=== PATIENT | female | born 1940 | race African-American/Black ===

== ENCOUNTER → 2016-06-21 | Outpatient (CLI) | payer MEDICARE, BC | LOC: WI 11:46 | PROVIDERS: ATTEND Family Medicine | DX: Z12.31 Encounter for screening mammogram for malignant neoplasm of breast (principal) | CPT/HCPCS: 77067; G0202 ==

== ENCOUNTER → 2016-08-16 | Outpatient (CLI) | payer MEDICARE, BC ==
[2016-08-16 12:47] LABS: HEMOGLOBIN 11.4 g/dL (12.0-15.5); HGB HCT DIFFERENCE -0.8; MEAN CORPUSCULAR HEMOGLOBIN 26.3 pg (27.0-33.4); MEAN CORPUSCULAR HGB CONC 32.6 g/dL (32.0-36.0); MEAN CORPUSCULAR VOLUME 81 fl (80-97); RED BLOOD COUNT 4.34 10^6/uL (3.72-5.28); RED CELL DISTRIBUTION WIDTH 15.9 % (11.5-14.0); WHITE BLOOD COUNT 4.1 10^3/uL (4.0-10.5)
[2016-08-16 13:04] LABS: ALANINE AMINOTRANSFERASE 16 U/L (9-52); ALKALINE PHOSPHATASE 61 U/L (38-126); ASPARTATE AMINO TRANSFERASE 28 U/L (14-36); BILIRUBIN,DIRECT 0.5 mg/dL (0.0-0.4); BILIRUBIN,TOTAL 0.9 mg/dL (0.2-1.3); TOTAL PROTEIN 7.3 g/dL (6.3-8.2)
[2016-08-19 11:42] LABS: HEPATITIS BE AB Positive (Negative)
== END ==
LOC: LAB 11:52
PROVIDERS: ATTEND Internal Medicine Gastroenterology
DX: G93.41 Metabolic encephalopathy (principal); B18.1 Chronic viral hepatitis B without delta-agent; K74.69 Other cirrhosis of liver
CPT/HCPCS: 36415; 80076; 82105; 85027; 86707; 87350

== ENCOUNTER → 2016-09-19 | Outpatient (CLI) | payer MEDICARE, BC ==
[2016-09-21 11:50] LABS: HEPATITIS B AS IU/ML 2 <10 IU/mL (.)
== END ==
LOC: LAB 14:35
PROVIDERS: ATTEND Internal Medicine Gastroenterology
DX: B18.1 Chronic viral hepatitis B without delta-agent (principal)
CPT/HCPCS: 36415; 87340; 87517

== ENCOUNTER → 2016-11-01 | Outpatient (CLI) | payer MEDICARE, BC ==
--- NOTE | 2016-11-01 12:34 | RADIOLOGY REPORT (SQ) ---
EXAM DESCRIPTION: U/S ABDOMEN LIMITED W/O DOP COMPLETED DATE/TIME: 11/01/2016 10:26 am REASON FOR STUDY: OTHER CIRRHOSIS OF LIVER K74.69 OTHER CIRRHOSIS OF LIVER B18.1 CHRONIC VIRAL HEP ATITIS B WITHOUT DELTA-AGENT COMPARISON: 08/04/2015. TECHNIQUE: Dynamic and static grayscale images acquired of the abdomen and recorded on PACS. Additio nal selected color Doppler and spectral images recorded. LIMITATIONS: None. FINDINGS: PANCREAS: No masses. Visualized pancreatic duct normal caliber. LIVER: No masses. Heterogenous echogenicity. LIVER VASCULATURE: Normal directional flow of the main portal vein and hepatic veins. GALLBLADDER: Contracted. No stones. Normal wall thickness. No pericholecystic fluid. ULTRASOUND-DETECTED MORGAN'S SIGN: Negative. INTRAHEPATIC DUCTS AND COMMON DUCT: CBD and intrahepatic ducts normal caliber. No filling defects. INFERIOR VENA CAVA: Normal flow. AORTA: No aneurysm. RIGHT KIDNEY: Normal size. Normal echogenicity. No solid or suspicious masses. No hydronephrosis. No calcifications. PERITONEAL AND RIGHT PLEURAL SPACE: No ascites or effusions. OTHER: No other significant findings. IMPRESSION: HETEROGENOUS ECHOGENICITY OF THE LIVER, SIMILAR TO THE PRIOR STUDY, CONSISTENT WITH THE GIVEN HISTORY OF CIRRHOSIS. NO FOCAL LESIONS. TECHNICAL DOCUMENTATION: JOB ID: [id number] [employer]- All Rights Reserved
== END ==
LOC: RAD 09:44
PROVIDERS: ATTEND Internal Medicine Gastroenterology
DX: K74.69 Other cirrhosis of liver (principal); B18.1 Chronic viral hepatitis B without delta-agent
CPT/HCPCS: 76705

== ENCOUNTER → 2017-01-24 | Outpatient (CLI) | payer MEDICARE, BC ==
--- NOTE | 2017-01-24 13:00 | RADIOLOGY REPORT (SQ) ---
EXAM DESCRIPTION: CT ABD/PELVIS NO ORAL OR IV COMPLETED DATE/TIME: 01/24/2017 10:13 am REASON FOR STUDY: LOWER ABDOMINAL PAIN R10.30 LOWER ABDOMINAL PAIN, UNSPECIFIED COMPARISON: CT abdomen pelvis 05/02/2012, 10/22/2015, 01/21/2016 TECHNIQUE: CT scan of the abdomen and pelvis performed without intravenous or oral contrast. Images reviewed with lung, soft tissue, and bone windows. Reconstructed coronal and sagittal MPR images revi ewed. All images stored on PACS. All CT scanners at this facility use dose modulation, iterative reconstruction, and/or weight based d osing when appropriate to reduce radiation dose to as low as reasonably achievable (ALARA). [facility]: Dose Right [facility]: CareDose [facility]: Dose Right [facility]: Teradose 4D [facility]: Smart Carbon Digital RADIATION DOSE: Up-to-date CT equipment and radiation dose reduction techniques were employed. CTDIv ol: 2.3 mGy. DLP: 109 mGy-cm.mGy. LIMITATIONS: Slender patient. No IV or oral contrast FINDINGS: LOWER CHEST: Lung bases are free of focal infiltrates. NON-CONTRASTED LIVER, SPLEEN, ADRENALS: Evaluation limited by lack of IV contrast. No identified sign ificant masses. PANCREAS: No masses. No peripancreatic inflammatory changes. GALLBLADDER: No identified stones by CT criteria. No inflammatory changes to suggest cholecystitis. RIGHT KIDNEY AND URETER: No suspicious masses. Assessment limited by lack of IV contrast. Multiple small less than 5 mm right lower pole intrarenal nonobstructive stones No hydronephrosis or hydrour eter. LEFT KIDNEY AND URETER: No suspicious masses. Assessment limited by lack of IV contrast. Multiple s mall less than 5 mm left lower pole intrarenal nonobstructive stones No hydronephrosis or hydrouret er. AORTA AND RETROPERITONEUM: No aneurysm. No retroperitoneal masses or adenopathy. BOWEL AND PERITONEAL CAVITY: No obvious masses or inflammatory changes. No free fluid. Large amount of stool throughout the colon APPENDIX: Normal. Best shown on axial images 55-60, and coronal images 29-37 PELVIS, BLADDER, AND ABDOMINAL WALL:No abnormal masses. No free fluid. Bladder normal. Normal size f emale pelvic. Multiple calcified pelvic phleboliths BONES: Degenerative disc changes at L4-5. OTHER: No other significant finding. IMPRESSION: NO SIGNIFICANT OR ACUTE PROCESS IN THE ABDOMEN OR PELVIS. COMMENT: Quality ID # [id number]: Final reports with documentation of one or more dose reduction techniques (e.g., Automated exposure control, adjustment of the mA and/or kV according to patient size, use of iterative reconstruction technique) TECHNICAL DOCUMENTATION: JOB ID: [id number] [employer]- All Rights Reserved
== END ==
LOC: RAD 09:53
PROVIDERS: ATTEND Family Medicine
DX: R10.30 Lower abdominal pain, unspecified (principal)
CPT/HCPCS: 74176

== ENCOUNTER → 2017-01-27 | Outpatient (CLI) | payer MEDICARE, BC ==
[2017-01-27 13:48] LABS: ABSOLUTE BASOPHILS # (AUTO) 0.1 10^3/uL (0.0-0.2); ABSOLUTE EOSINOPHILS # (AUTO) 0.1 10^3/uL (0.0-0.6); ABSOLUTE LYMPHOCYTES (AUTO) 1.7 10^3/uL (0.5-4.7); ABSOLUTE MONOCYTES (AUTO) 0.4 10^3/uL (0.1-1.4); BASOPHILS % (AUTO) 1.3 % (0-2); EOSINOPHILS % (AUTO) 1.5 % (0-6); HEMATOCRIT 33.1 % (36.0-47.0); HEMOGLOBIN 11.1 g/dL (12.0-15.5); HGB HCT DIFFERENCE 0.2; LYMPHOCYTES % (AUTO) 40.9 % (13-45); MEAN CORPUSCULAR HGB CONC 33.5 g/dL (32.0-36.0); MEAN CORPUSCULAR VOLUME 78 fl (80-97); MONOCYTES % (AUTO) 9.7 % (3-13); RED BLOOD COUNT 4.26 10^6/uL (3.72-5.28); SEGMENTED NEUTROPHILS % (AUTO) 46.6 % (42-78); WHITE BLOOD COUNT 4.2 10^3/uL (4.0-10.5)
[2017-01-27 14:08] LABS: ALANINE AMINOTRANSFERASE 26 U/L (9-52); ALBUMIN 4.1 g/dL (3.5-5.0); ALKALINE PHOSPHATASE 64 U/L (38-126); ANION GAP 16 (5-19); ASPARTATE AMINO TRANSFERASE 49 U/L (14-36); BILIRUBIN,DIRECT 0.3 mg/dL (0.0-0.4); BILIRUBIN,TOTAL 0.6 mg/dL (0.2-1.3); BLOOD UREA NITROGEN 20 mg/dL (7-20); CARBON DIOXIDE 15 mmol/L (22-30); CHLORIDE 115 mmol/L (98-107); CREATININE RESULT 1.12 mg/dL (0.52-1.25); GLUCOSE 101 mg/dL (75-110); POTASSIUM 4.6 mmol/L (3.6-5.0); SODIUM 145.8 mmol/L (137-145); TOTAL PROTEIN 6.8 g/dL (6.3-8.2)
== END ==
LOC: OD 11:38
PROVIDERS: ATTEND Family Medicine
DX: G93.40 Encephalopathy, unspecified (principal)
CPT/HCPCS: 36415; 80053; 85025

== ENCOUNTER → 2017-05-31 | Outpatient (CLI) | payer MEDICARE, BC ==
[2017-05-31 12:44] LABS: HEMATOCRIT 37.9 % (36.0-47.0); HEMOGLOBIN 12.6 g/dL (12.0-15.5); MEAN CORPUSCULAR HEMOGLOBIN 25.8 pg (27.0-33.4); MEAN CORPUSCULAR HGB CONC 33.3 g/dL (32.0-36.0); MEAN CORPUSCULAR VOLUME 78 fl (80-97); PROTHROMBIN TIME 13.9 SEC (11.4-15.4); RED BLOOD COUNT 4.88 10^6/uL (3.72-5.28); RED CELL DISTRIBUTION WIDTH 17.6 % (11.5-14.0); WHITE BLOOD COUNT 3.9 10^3/uL (4.0-10.5)
[2017-05-31 13:03] LABS: ANION GAP 9 (5-19); BLOOD UREA NITROGEN 15 mg/dL (7-20); CARBON DIOXIDE 23 mmol/L (22-30); CHLORIDE 114 mmol/L (98-107); GLUCOSE 107 mg/dL (75-110); POTASSIUM 4.2 mmol/L (3.6-5.0); SODIUM 145.9 mmol/L (137-145)
[2017-05-31 13:16] LABS: PLATELET COUNT 82 10^3/uL (150-450)
== END ==
LOC: LAB 12:04
PROVIDERS: ATTEND Internal Medicine Gastroenterology
DX: K74.69 Other cirrhosis of liver (principal); B18.1 Chronic viral hepatitis B without delta-agent
CPT/HCPCS: 36415; 80048; 85027; 85610; 87517

== ENCOUNTER → 2017-06-26 | Outpatient (CLI) | payer MEDICARE, BC ==
--- NOTE | 2017-06-27 08:59 | WOMENS IMAGING REPORT ---
EXAM DESCRIPTION: 3D SCREENING MAMMO BILAT COMPLETED DATE/TIME: 06/26/2017 10:40 am REASON FOR STUDY: ROUTINE SCREENING;Z12.31 Z12.31 ENCNTR SCREEN MAMMOGRAM FOR MALIGNANT NEOPLASM OF [place] COMPARISON: Multiple since 2009 TECHNIQUE: Standard craniocaudal and mediolateral oblique views of each breast recorded using digita l acquisition and breast tomosynthesis. LIMITATIONS: None. FINDINGS: Findings present which are benign by mammographic criteria. No suspicious masses, calcifi cations or architectural distortion. Pertinent benign findings: Stable bilateral breast parenchymal calcifications and arterial vascular c alcifications Read with the assistance of CAD. .[facility] - R2 Cenova Version 1.3 .[facility] Imaging - R2 Cenova Version 1.3 .[facility] - R2 Cenova Version 2.4 .[facility] - R2 Cenova Version 2.4 .[facility] - R2 Transformation Lead Version 9.2 Benign mammographic findings may include one or more of the following: Smooth masses, popcorn/rim/co arse calcifications, asymmetries, post-procedure changes, and lesions with long-standing stability. IMPRESSION: BENIGN MAMMOGRAPHIC FINDINGS. BIRADS 2 BREAST DENSITY: c. The breasts are heterogeneously dense, which may obscure small masses. BIRAD: 2 BENIGN FINDING(S) RECOMMENDATION: RECOMMENDATION: ROUTINE SCREENING Please continue yearly bilateral screening tomosynthesis in June 2018 COMMENT: The patient has been notified of the results by letter per [place] requirements. Additional no tification policies are in place for contacting patient with suspicious or incomplete findings. Quality ID #225: The [employer] recommends an annual screening mammogram for women aged 40 years or over. This facility utilizes a reminder system to ensure that all patients receive reminder letters, and/or direct phone calls for appointments. This includes reminders for routine scr eening mammograms, diagnostic mammograms, or other Breast Imaging Interventions when appropriate. Th is patient will be placed in the appropriate reminder system. The [employer] (ACR) has developed recommendations for screening MRI of the breast s in certain patient populations, to be used in conjunction with mammography. Breast MRI surveillanc e may be appropriate for women with more than 20% lifetime risk of developing breast cancer as deter mined by genetic testing, significant family history of the disease, or history of mantle radiation f or Hodgkins Disease. ACR Practice Guidelines 2008. DBT Technology DBT is a type of tomographic mammography. With conventional mammography, overlapping breast tissue ma y make lesions difficult to detect, even with good compression. DBT uses an x-ray tube that rotates a round the breast, taking images at different angles. These images are then combined to create thin sl ices of the breast that the radiologist can view as a 3D reconstruction. The Hologic unit can perform full-field digital mammograms (2D imaging); or DBT (3D imaging); or both, in a combination mode that quickly performs both the mammogram and the tomosynthesis scan while the breast is still compressed. PQRS 6045F: Fluoroscopic imaging is not utilized for breast tomosynthesis. TECHNICAL DOCUMENTATION: FINDING NUMBER: (1) ASSESSMENT: (1) JOB ID: [id number] [employer]- All Rights Reserved Reading location - IP/workstation name: [email or web address]
== END ==
LOC: WI 10:25
PROVIDERS: ATTEND Family Medicine
DX: Z12.31 Encounter for screening mammogram for malignant neoplasm of breast (principal)
CPT/HCPCS: 77063; 77067

== ENCOUNTER → 2017-11-10 | Outpatient (CLI) | payer MEDICARE, BC ==
--- NOTE | 2017-11-10 09:49 | WOMENS IMAGING REPORT ---
EXAM DESCRIPTION: U/S ABDOMEN LIMITED COMPLETED DATE/TIME: 11/10/2017 9:25 am REASON FOR STUDY: ABDOMEN LIMITED LIVER/K74.69 K74.69 OTHER CIRRHOSIS OF LIVER COMPARISON: CT abdomen pelvis 01/24/2017, 01/21/2016 Abdominal ultrasound 11/01/2016, 08/04/2015, 01/04/2013 TECHNIQUE: Dynamic and static grayscale images acquired of the abdomen and recorded on PACS. Additio nal selected color Doppler and spectral images recorded. LIMITATIONS: Midline bowel gas FINDINGS: PANCREAS: Limited view of the midline pancreas unremarkable LIVER: No masses. Echotexture normal. LIVER VASCULATURE: Normal directional flow of the main portal vein and hepatic veins. GALLBLADDER: No stones. Minimal nonshadowing echogenic debris or sludge. Normal wall thickness. No pericholecystic fluid. ULTRASOUND-DETECTED MORGAN'S SIGN: Negative. INTRAHEPATIC DUCTS AND COMMON DUCT: No intrahepatic biliary ductal dilatation. On today's exam, the common bile duct at the toya hepatis is 9 mm in diameter (was 7 mm in diameter 2012). Distal common duct not well seen due to duodenum gas. INFERIOR VENA CAVA: Normal flow. AORTA: No aneurysm. RIGHT KIDNEY: Normal size. Normal echogenicity. No solid or suspicious masses. No hydronephrosis. P unctate shadowing focus right lower pole kidney could represent a tiny intrarenal nonobstructive ston e. PERITONEAL AND RIGHT PLEURAL SPACE: No ascites or effusions. OTHER: No other significant findings. IMPRESSION: Minimal sludge in the gallbladder. No ultrasound evidence of gallbladder wall thickenin g or pericholecystic fluid Common bile duct at the toya hepatis 9 mm in diameter, distal most common duct not well seen due to duodenum gas. TECHNICAL DOCUMENTATION: JOB ID: [id number] [employer]- All Rights Reserved Reading location - IP/workstation name: [email or web address]
== END ==
LOC: WI 09:00
PROVIDERS: ATTEND Internal Medicine Gastroenterology
DX: K74.69 Other cirrhosis of liver (principal)
CPT/HCPCS: 76705

== ENCOUNTER → 2017-11-10 | Outpatient (CLI) | payer MEDICARE, BC ==
[2017-11-10 11:23] LABS: INTERNATIONAL RATION (INR) 1.03
[2017-11-10 11:33] LABS: APPEARANCE,URINE SLIGHTLY-CLOUDY; BILIRUBIN,URINE NEGATIVE (NEGATIVE); CALCIUM OXALATE CRYSTALS,URINE MODERATE /HPF; COLOR,URINE YELLOW; GLUCOSE, URINE NEGATIVE (NEGATIVE); KETONES,URINE TRACE mg/dL (NEGATIVE); LEUKOCYTE ESTERASE,URINE TRACE (NEGATIVE); NITRITE,URINE NEGATIVE (NEGATIVE); PROTEIN,URINE 100 mg/dL (NEGATIVE); URINE SPECIFIC GRAVITY 1.017; UROBILINOGEN,URINE NEGATIVE mg/dL (<2.0)
[2017-11-10 11:41] LABS: ALANINE AMINOTRANSFERASE 31 U/L (9-52); ALKALINE PHOSPHATASE 85 U/L (38-126); ANION GAP 12 (5-19); ASPARTATE AMINO TRANSFERASE 47 U/L (14-36); BILIRUBIN,DIRECT 0.4 mg/dL (0.0-0.4); BILIRUBIN,TOTAL 1.1 mg/dL (0.2-1.3); BLOOD UREA NITROGEN 18 mg/dL (7-20); CALCIUM 9.9 mg/dL (8.4-10.2); CARBON DIOXIDE 21 mmol/L (22-30); CHLORIDE 114 mmol/L (98-107); GLUCOSE 94 mg/dL (75-110); POTASSIUM 3.9 mmol/L (3.6-5.0); SODIUM 147.1 mmol/L (137-145); TOTAL PROTEIN 7.5 g/dL (6.3-8.2)
[2017-11-12 06:15] LABS: AFP SERUM TUMOR MARKER 4.8 ng/mL (0.0-8.3)
== END ==
LOC: OD 09:43
PROVIDERS: ATTEND Internal Medicine Gastroenterology
DX: B18.1 Chronic viral hepatitis B without delta-agent (principal); K74.69 Other cirrhosis of liver; N39.0 Urinary tract infection, site not specified
CPT/HCPCS: 36415; 80048; 80076; 81001; 82105; 85610; 87517

== ENCOUNTER 2017-11-12 18:07 | Emergency (ER) | payer MEDICARE, BC ==
[2017-11-12] MEDS ORDERED: KETOROLAC TROMETHAMINE INJ/PF 30 MG/1 ML SDV IV ONE (19:08)
[2017-11-12] MEDS ORDERED: DIPHENHYDRAMINE HCL 50 MG/ML VIAL IV ONE (19:08)
[2017-11-12] MEDS ORDERED: PROCHLORPERAZINE EDISYLATE INJ 10 MG/2 ML VIAL IM ONE (19:08)
--- NOTE | 2017-11-12 19:19 | ER Document Report ---
ED Medical Screen (RME) - General Mode of Arrival: Ambulatory Information source: Patient TRAVEL OUTSIDE OF THE [place] IN LAST 30 DAYS: No <JED MIRANDA - Last Filed: 11/12/17 19:48> <REGGIEMARITAERIC REDDY - Last Filed: 11/12/17 20:13> - General Chief Complaint: Blood Pressure Problem Stated Complaint: ELEVATED BLOOD PRESSURE Time Seen by Provider: 11/12/17 18:56 Notes: Patient is a 76 year old female presenting to the emergency department complaining of multiple symptoms including a headache, elevated blood pressure and shakiness onset 3-4 days ago. Patient states she believes she has a headache because her blood pressure is high. She states her headache is located around her temples further stating she has had numerous headaches in the past but today's headache is more severe. She reports taking Excedrin migraine in attempt to relieve the pain. She also mentions having a recent eeg and ultrasound performed recently for work up for Parkinson's Disease. She states she has been tapping her foot for a few days. Patient denies any numbness or tingling or difficulty swallowing. GENERAL: Alert, interacts well. No acute distress. HEAD: Normocephalic, atraumatic. EYES: Pupils equal, round, and reactive to light. Extraocular movements intact. ENT: Oral mucosa moist, tongue midline. NECK: Full range of motion. Supple. Trachea midline. LUNGS: Clear to auscultation bilaterally, no wheezes, rales, or rhonchi. No respiratory distress. HEART: 2/6 systolic murmur. Regular rate and rhythm. ABDOMEN: Soft, non-tender. Non-distended. Bowel sounds present in all 4 quadrants. EXTREMITIES: Moves all 4 extremities spontaneously. No edema, radial and dorsalis pedis pulses 2/4 bilaterally. No cyanosis. 5/5 motor strength BLE. 5/5 great toe dorsiflexion. NEUROLOGICAL: Alert and oriented x3. Normal speech. Cranial nerves II through XII grossly intact. Biceps and patellar DTRs 2+ bilaterally. PSYCH: Normal affect, normal mood. SKIN: Warm, dry, normal turgor. No rashes or lesions noted. I have greeted and performed a rapid initial assessment of this patient. A comprehensive ED assessment and evaluation of the patient, analysis of test results and completion of the medical decision making process will be conducted by additional ED providers. (JED MIRANDA) - Related Data Allergies/Adverse Reactions: divalproex sodium [From Depakote] Adverse Reaction (Intermediate, Verified 10/21 11:14) BEE STING Adverse Reaction (Severe, Uncoded 10/22/15 11:14) Past Medical History - Social History Chew tobacco use (# tins/day): No Frequency of alcohol use: None Drug Abuse: None Family history: CAD, Hypertension - Past Medical History Cardiac Medical History: Reports: Hx Hypercholesterolemia, Hx Hypertension Denies: Hx Coronary Artery Disease, Hx Heart Attack Pulmonary Medical History: Denies: Hx Asthma, Hx Bronchitis, Hx COPD, Hx Pneumonia, Hx Tuberculosis Neurological Medical History: Reports: Hx Migraine. Denies: Hx Cerebrovascular Accident, Hx Seizures Renal/ Medical History: Denies: Hx Peritoneal Dialysis GI Medical History: Reports: Hx Cirrhosis, Hx Gastroesophageal Reflux Disease, Hx Hepatitis, Hx Liver Failure - Hepatic Encephalopathy Musculoskeltal Medical History: Reports Hx Arthritis Psychiatric Medical History: Reports: Hx Dementia Infectious Medical History: Reports: Hx Hepatitis Past Surgical History: Reports: Hx Section, Hx Tubal Ligation. Denies : Hx Hysterectomy, Hx Pacemaker - Immunizations Immunizations up to date: Yes Hx Diphtheria, Pertussis, Tetanus Vaccination: Yes <JED MIRANDA - Last Filed: 11/12/17 19:48> - Vital signs Vitals: Temp Pulse Resp BP Pulse Ox 98.6 F 94 16 175/75 H 98 11/12/17 18:16 11/12/17 18:16 11/12/17 18:16 11/12/17 18:16 11/12/17 18:16 Course - Laboratory Result Diagrams: 11/12/17 19:25 11/12/17 19:25 <JED MIRANDA - Last Filed: 11/12/17 19:48> - Laboratory Result Diagrams: 11/12/17 19:25 11/12/17 19:25 <ERIC VALENZUELA - Last Filed: 11/12/17 20:13> - Vital Signs Vital signs: Temp Pulse Resp BP Pulse Ox 98.6 F 94 16 175/75 H 98 11/12/17 18:16 11/12/17 18:16 11/12/17 18:16 11/12/17 18:16 11/12/17 18:16 Doctor's Discharge <JED MIRANDA - Last Filed: 11/12/17 19:48> <ERIC VALENZUELA - Last Filed: 11/12/17 20:13> - Discharge Referrals: MCKAYLA AGUAYO MD [Primary Care Provider] - Follow up as needed
[2017-11-12 19:44] LABS: MEAN CORPUSCULAR HGB CONC 33.6 g/dL (32.0-36.0); MEAN CORPUSCULAR VOLUME 82 fl (80-97)
--- NOTE | 2017-11-12 19:45 | RADIOLOGY REPORT (SQ) ---
EXAM DESCRIPTION: CT HEAD WITHOUT COMPLETED DATE/TIME: 11/12/2017 7:35 pm REASON FOR STUDY: frontal headache, hypertensive COMPARISON: 01/21/2016 TECHNIQUE: Axial images acquired through the brain without intravenous contrast. Images reviewed wi th bone, brain and subdural windows. Images stored on PACS. All CT scanners at this facility use dose modulation, iterative reconstruction, and/or weight based d osing when appropriate to reduce radiation dose to as low as reasonably achievable (ALARA). [facility]: Dose Right [facility]: CareDose [facility]: Dose Right [facility]: Teradose 4D [facility]: Smart Technologies RADIATION DOSE: CT Rad equipment meets quality standard of care and radiation dose reduction techniq ues were employed. CTDIvol: 53.2 mGy. DLP: 1097 mGy-cm. mGy. LIMITATIONS: None. FINDINGS: VENTRICLES: Stable. CEREBRUM: No masses. No hemorrhage. No midline shift. Areas of low density in the white matter mos t likely due to chronic micro-vascular ischemic change. No evidence for acute infarction. CEREBELLUM: No masses. No hemorrhage. No alteration of density. No evidence for acute infarction. EXTRAAXIAL SPACES: Mild age-related involutional change. No fluid collections. No masses. ORBITS AND GLOBE: No intra- or extraconal masses. Normal contour of globe without masses. CALVARIUM: No fracture. PARANASAL SINUSES: No fluid or mucosal thickening. SOFT TISSUES: No mass or hematoma. OTHER: No other significant finding. IMPRESSION: No acute intracranial findings. EVIDENCE OF ACUTE STROKE: NO. TECHNICAL DOCUMENTATION: JOB ID: [id number] Quality ID # [id number]: Final reports with documentation of one or more dose reduction techniques (e.g., Au tomated exposure control, adjustment of the mA and/or kV according to patient size, use of iterative reconstruction technique) 2010 [employer]- All Rights Reserved Reading location - IP/workstation name: [employer]
[2017-11-12 20:14] LABS: HEMATOCRIT 37.8 % (36.0-47.0); HEMOGLOBIN 12.7 g/dL (12.0-15.5); MEAN CORPUSCULAR HEMOGLOBIN 27.5 pg (27.0-33.4); PLATELET COUNT 136 10^3/uL (150-450); RED BLOOD COUNT 4.61 10^6/uL (3.72-5.28); RED CELL DISTRIBUTION WIDTH 15.4 % (11.5-14.0); WHITE BLOOD COUNT 4.3 10^3/uL (4.0-10.5)
[2017-11-12 20:16] LABS: ABSOLUTE LYMPHOCYTES# (MANUAL) 1.7 10^3/uL (0.5-4.7); ABSOLUTE MONOCYTES # (MANUAL) 0.3 10^3/uL (0.1-1.4); ABSOLUTE NEUTROPHILS# (MANUAL) 2.1 10^3/uL (1.7-8.2); BASOPHILS % (MANUAL) 2 % (0-2); EOSINOPHILS % (MANUAL) 2 % (0-6); LYMPHOCYTES % (MANUAL) 39 % (13-45); MONOCYTES % (MANUAL) 8 % (3-13); PLATELET CLUMPS PRESENT; PLATELET COMMENT DECREASED; PLATELET LARGE PRESENT; RBC MORPHOLOGY COMMENT NORMO-CYTIC/CHROMIC; SEGMENTED NEUTROPHILS % (MAN) 49 % (42-78); TOTAL CELLS COUNTED 100
[2017-11-12] MEDS ORDERED: NORMAL SALINE 500 ML IV ONE (20:26)
--- NOTE | 2017-11-12 20:29 | ER Document Report ---
ED General - General Chief Complaint: Blood Pressure Problem Stated Complaint: ELEVATED BLOOD PRESSURE Time Seen by Provider: 11/12/17 18:56 Mode of Arrival: Ambulatory Information source: Patient Notes: 76-year-old female with a history of cirrhosis, migraine headaches, hypertension who presents to the emergency room with shakiness, migraine headache and elevated blood pressure for the past 3-4 days. Patient denies any fever, chills, vomiting. She denies any neck stiffness. TRAVEL OUTSIDE OF THE [place] IN LAST 30 DAYS: No - HPI Onset: Last week Onset/Duration: Gradual Quality of pain: Dull Severity: Moderate Pain Level: 2 Associated symptoms: Nausea. denies: Chest pain, Fever, Vomiting, Shortness of breath Exacerbated by: Denies Relieved by: Denies Similar symptoms previously: Yes Recently seen / treated by doctor: Yes - Related Data Allergies/Adverse Reactions: divalproex sodium [From Depakote] Adverse Reaction (Intermediate, Verified 10/21 11:14) BEE STING Adverse Reaction (Severe, Uncoded 10/22/15 11:14) Past Medical History - General Information source: Patient - Social History Smoking Status: Never Smoker Cigarette use (# per day): No Chew tobacco use (# tins/day): No Frequency of alcohol use: None Drug Abuse: None Lives with: Family Family History: Reviewed & Not Pertinent Patient has suicidal ideation: No Patient has homicidal ideation: No - Past Medical History Cardiac Medical History: Reports: Hx Hypercholesterolemia, Hx Hypertension Denies: Hx Coronary Artery Disease, Hx Heart Attack Pulmonary Medical History: Denies: Hx Asthma, Hx Bronchitis, Hx COPD, Hx Pneumonia, Hx Tuberculosis Neurological Medical History: Reports: Hx Migraine. Denies: Hx Cerebrovascular Accident, Hx Seizures Renal/ Medical History: Denies: Hx Peritoneal Dialysis GI Medical History: Reports: Hx Cirrhosis, Hx Gastroesophageal Reflux Disease, Hx Hepatitis, Hx Liver Failure - Hepatic Encephalopathy Musculoskeletal Medical History: Reports Hx Arthritis Psychiatric Medical History: Reports: Hx Dementia Infectious Medical History: Reports: Hx Hepatitis Past Surgical History: Reports: Hx Section, Hx Tubal Ligation. Denies : Hx Hysterectomy, Hx Pacemaker - Immunizations Immunizations up to date: Yes Hx Diphtheria, Pertussis, Tetanus Vaccination: Yes Hx Pneumococcal Vaccination: 03/10/10 Review of Systems - Review of Systems Constitutional: denies: Chills, Fever EENT: No symptoms reported Cardiovascular: See HPI. denies: Chest pain, Palpitations, Orthopnea Respiratory: No symptoms reported Gastrointestinal: Nausea. denies: Abdominal pain, Diarrhea, Vomiting Genitourinary: No symptoms reported Female Genitourinary: No symptoms reported Musculoskeletal: No symptoms reported Skin: No symptoms reported Hematologic/Lymphatic: No symptoms reported Neurological/Psychological: See HPI, Other - Shakiness Physical Exam - Vital signs Vitals: Temp Pulse Resp BP Pulse Ox 98.6 F 94 16 175/75 H 98 11/12/17 18:16 11/12/17 18:16 11/12/17 18:16 11/12/17 18:16 11/12/17 18:16 Notes: Physical exam: GENERAL: A 76-year-old female, alert and oriented 3, no acute distress HEAD: Atraumatic, normocephalic. EYES: Pupils equal round and reactive to light, extraocular movements intact, sclera anicteric, conjunctiva are normal. ENT: TMs normal, nares patent, oropharynx clear without exudates. Moist mucous membranes. NECK: Normal range of motion, supple without obvious mass. LUNGS: Breath sounds clear to auscultation bilaterally and equal. No wheezes rales or rhonchi. HEART: Regular rate and rhythm without murmurs, rubs or gallops. ABDOMEN: Soft, normoactive bowel sounds. No tenderness to palpation. No guarding, no rebound. No masses appreciated. EXTREMITIES: Normal range of motion, no pitting or edema. No clubbing or cyanosis. NEUROLOGICAL: Cranial nerves II through XII grossly intact. Normal speech, moving all extremities. No neck stiffness, photophobia or meningismus. PSYCH: Normal mood, normal affect. SKIN: Warm, Dry, normal turgor, no rashes or lesions noted. Course - Re-evaluation Re-evalutation: 11/12/17 22:53 Note: Patient was given some IV fluids and she was treated with IV Compazine, Toradol and Benadryl for headache. On reevaluation, she feels much better. Her headache is resolved and she states that the shakiness has also resolved. Patient's labs are basically okay. Her ammonia is 50 and she has been in the 40s before. She is on lactulose and I have given patient's son good instructions to return for any problems. - Vital Signs Vital signs: Temp Pulse Resp BP Pulse Ox 98.0 F 68 16 125/65 98 11/12/17 23:07 11/12/17 23:07 11/12/17 23:07 11/12/17 23:07 11/12/17 23:07 - Laboratory Result Diagrams: 11/12/17 19:25 11/12/17 19:50 Laboratory results interpreted by me: 11/12/17 11/12/17 11/12/17 19:25 19:50 21:40 RDW 15.4 H Plt Count 136 L Sodium 146.7 H Chloride 113 H Calcium 10.3 H Direct Bilirubin 0.5 H AST 79 H Ammonia 51.3 H - Diagnostic Test Radiology reviewed: Image reviewed, Reports reviewed - Head CT shows no acute bleed or mass-effect Discharge - Discharge Clinical Impression: Migraine headache Condition: Stable Disposition: HOME, SELF-CARE Additional Instructions: As we discussed, the head CT looked pretty good tonight. There was no evidence of bleed or stroke or mass. The blood work looked pretty good: Electrolytes, kidney tests. The ammonia level was 50 which is slightly elevated but she has been in this range before. I would continue with the medicines and follow-up with Dr. Ho as planned. ReCommendations: Continue current medicines. Take Compazine for nausea or headache. It is not a medicine to be taken regularly. Follow-up with Dr. Ho as planned. He will be able to see all the labs and studies done today. Return to the emergency room with worsening headache, any concerns that your blood pressure is out of control or worsening shakiness, or any concerns getting worse. Prescriptions: Prochlorperazine Maleate [Compazine 5 Mg Tablet] 5 mg PO Q12HP PRN #7 tablet PRN Reason: For Headache Or Pain Referrals: MCKAYLA AGUAYO MD [ACTIVE STAFF] - Follow up as needed
[2017-11-12 20:41] LABS: ALANINE AMINOTRANSFERASE 23 U/L (9-52); ALBUMIN 3.9 g/dL (3.5-5.0); ALKALINE PHOSPHATASE 95 U/L (38-126); ANION GAP 11 (5-19); ASPARTATE AMINO TRANSFERASE 79 U/L (14-36); BILIRUBIN,DIRECT 0.5 mg/dL (0.0-0.4); BILIRUBIN,TOTAL 0.8 mg/dL (0.2-1.3); BLOOD UREA NITROGEN 16 mg/dL (7-20); CALCIUM 10.3 mg/dL (8.4-10.2); CARBON DIOXIDE 23 mmol/L (22-30); CHLORIDE 113 mmol/L (98-107); GLUCOSE 109 mg/dL (75-110); POTASSIUM 3.8 mmol/L (3.6-5.0); SODIUM 146.7 mmol/L (137-145); TOTAL PROTEIN 7.6 g/dL (6.3-8.2)
[2017-11-12 23:09] VITALS: BP 125/65
== END 2017-11-12 23:14 | disposition home or self-care (01) ==
LOC: ER 18:07
DX: G43.909 Migraine, unspecified, not intractable, without status migrainosus (principal); I10 Essential (primary) hypertension; R11.0 Nausea
CPT/HCPCS: 99284; 36415; 82140; 85025; 80053; 70450; J1200; J1885; J0780; J7040

== ENCOUNTER 2017-11-29 18:42 | Inpatient (IN) | payer MEDICARE, BC, OTHER ==
--- NOTE | 2017-11-29 20:23 | ER Document Report ---
ED Dizziness/Weakness - General Chief Complaint: Weakness Stated Complaint: GENERAL WEAKNESS Time Seen by Provider: 11/29/17 20:22 Mode of Arrival: Ambulatory Information source: Patient TRAVEL OUTSIDE OF THE [place] IN LAST 30 DAYS: No - HPI Patient complains to provider of: Weakness, Other - Slurred speech Onset: Yesterday - 8pm Onset/Duration: Sudden, Better Quality of pain: No pain Pain Level: Denies Associated symptoms: Weak all over Baseline gait: Walks w/o assistance - Related Data Allergies/Adverse Reactions: divalproex sodium [From Depakote] Adverse Reaction (Intermediate, Verified 10/21 11:14) BEE STING Adverse Reaction (Severe, Uncoded 10/22/15 11:14) Past Medical History - Social History Smoking Status: Unknown if Ever Smoked Family History: Reviewed & Not Pertinent - Past Medical History Cardiac Medical History: Reports: Hx Hypercholesterolemia, Hx Hypertension Denies: Hx Coronary Artery Disease, Hx Heart Attack Pulmonary Medical History: Denies: Hx Asthma, Hx Bronchitis, Hx COPD, Hx Pneumonia, Hx Tuberculosis Neurological Medical History: Reports: Hx Migraine. Denies: Hx Cerebrovascular Accident, Hx Seizures Renal/ Medical History: Denies: Hx Peritoneal Dialysis GI Medical History: Reports: Hx Cirrhosis, Hx Gastroesophageal Reflux Disease, Hx Hepatitis, Hx Liver Failure - Hepatic Encephalopathy Musculoskeletal Medical History: Reports Hx Arthritis Psychiatric Medical History: Reports: Hx Dementia Infectious Medical History: Reports: Hx Hepatitis Past Surgical History: Reports: Hx Section, Hx Tubal Ligation. Denies : Hx Hysterectomy, Hx Pacemaker - Immunizations Immunizations up to date: Yes Hx Diphtheria, Pertussis, Tetanus Vaccination: Yes Hx Pneumococcal Vaccination: 03/10/10 Review of Systems - Review of Systems Constitutional: Weakness. denies: Chills, Fever EENT: No symptoms reported Cardiovascular: denies: Chest pain, Palpitations Respiratory: No symptoms reported Gastrointestinal: No symptoms reported Genitourinary: No symptoms reported Female Genitourinary: No symptoms reported Musculoskeletal: No symptoms reported Skin: No symptoms reported Hematologic/Lymphatic: No symptoms reported Neurological/Psychological: Weakness, Speech impairment -: Yes All other systems reviewed and negative Physical Exam - Vital signs Vitals: Temp Pulse BP Pulse Ox 98.8 F 92 160/78 H 99 11/29/17 19:07 11/29/17 19:07 11/29/17 19:07 11/29/17 19:07 - General General appearance: Appears well, Alert In distress: None - HEENT Head: Normocephalic, Atraumatic Eyes: Normal Pupils: PERRL - Respiratory Respiratory status: No respiratory distress Chest status: Nontender Breath sounds: Normal Chest palpation: Normal - Cardiovascular Rhythm: Regular Heart sounds: Normal auscultation Murmur: No - Abdominal Inspection: Normal Distension: No distension Bowel sounds: Normal Tenderness: Nontender Organomegaly: No organomegaly - Back Back: Normal, Nontender - Extremities General upper extremity: Normal inspection, Nontender, Normal color, Normal ROM , Normal temperature General lower extremity: Normal inspection, Nontender, Normal color, Normal ROM , Normal temperature, Normal weight bearing. 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 Jean Marie Ho. He will admit patient to the hospital for further evaluation and management. 11/30/17 02:59 MRI of the brain without contrast has been ordered to be done this morning and Dr. Ho will follow the results. - Vital Signs Vital signs: Temp Pulse Resp BP Pulse Ox 98.9 F 87 24 H 100/60 99 11/30/17 02:01 11/30/17 01:50 11/30/17 02:01 11/30/17 02:01 11/30/17 02:01 - Laboratory Result Diagrams: 11/29/17 21:40 11/29/17 21:40 Laboratory results interpreted by me: 11/29/17 11/29/17 11/29/17 21:40 21:40 21:40 RDW 16.0 H Plt Count 89 L Seg Neuts % (Manual) 28 L Lymphocytes % (Manual) 54 H Monocytes % (Manual) 15 H Abs Neuts (Manual) 1.3 L Sodium 146.2 H Chloride 114 H AST 44 H Creatine Kinase 209 H Urine Protein 30 H Urine Blood SMALL H - Diagnostic Test Radiology reviewed: Image reviewed, Reports reviewed - EKG Interpretation by Me EKG shows normal: Sinus rhythm Rate: Normal - 90 Rhythm: NSR P Waves: LAE When compared to previous EKG there are: Changes noted Additional EKG results interpreted by me: 11/30/17 01:19 No STEMI. Nonspecific T wave changes. - Transfer of Care Notes: 11/30/17 02:59 Slurred speech. Unsteady gait. Discharge - Discharge Clinical Impression: Slurred speech, Weakness generalized, Unsteady gait Condition: Stable Disposition: ADMITTED INPATIENT Admitting Provider: Ho Unit Admitted: Telemetry
--- NOTE | 2017-11-29 22:11 | EKG REPORT ---
SEVERITY:- BORDERLINE ECG - SINUS RHYTHM PROBABLE LEFT ATRIAL ABNORMALITY : Confirmed by: Keaton Lisa 29-Nov-2017 22:10:53
[2017-11-29 22:32] LABS: APPEARANCE,URINE CLEAR; BILIRUBIN,URINE NEGATIVE (NEGATIVE); COLOR,URINE STRAW; GLUCOSE, URINE NEGATIVE (NEGATIVE); INTERNATIONAL RATION (INR) 1.01; KETONES,URINE NEGATIVE (NEGATIVE); LEUKOCYTE ESTERASE,URINE NEGATIVE (NEGATIVE); NITRITE,URINE NEGATIVE (NEGATIVE); PROTEIN,URINE 30 mg/dL (NEGATIVE); URINE SPECIFIC GRAVITY 1.004; UROBILINOGEN,URINE NEGATIVE mg/dL (<2.0)
[2017-11-29 22:33] LABS: PARTIAL THROMBOPLASTIN TIME 27.4 SEC (23.5-35.8)
[2017-11-29 22:36] LABS: HEMOGLOBIN 12.6 g/dL (12.0-15.5); MEAN CORPUSCULAR HEMOGLOBIN 27.5 pg (27.0-33.4); MEAN CORPUSCULAR HGB CONC 33.2 g/dL (32.0-36.0); MEAN CORPUSCULAR VOLUME 83 fl (80-97); RED BLOOD COUNT 4.57 10^6/uL (3.72-5.28); WHITE BLOOD COUNT 4.7 10^3/uL (4.0-10.5)
[2017-11-29 22:38] LABS: PLATELET COUNT 89 10^3/uL (150-450); PROTHROMBIN TIME 13.8 SEC (11.4-15.4)
--- NOTE | 2017-11-29 22:40 | RADIOLOGY REPORT (SQ) ---
EXAM DESCRIPTION: CT HEAD WITHOUT COMPLETED DATE/TIME: 11/29/2017 10:28 pm REASON FOR STUDY: Slurred speech COMPARISON: 11/12/2017 TECHNIQUE: Axial images acquired through the brain without intravenous contrast. Images reviewed wi th bone, brain and subdural windows. Additional sagittal and coronal reconstructions were generated. Images stored on PACS. All CT scanners at this facility use dose modulation, iterative reconstruction, and/or weight based d osing when appropriate to reduce radiation dose to as low as reasonably achievable (ALARA). [facility]: Dose Right [facility]: CareDose [facility]: Dose Right [facility]: Teradose 4D [facility]: Smart GoPollGo RADIATION DOSE: CT Rad equipment meets quality standard of care and radiation dose reduction techniq ues were employed. CTDIvol: 53.2 mGy. DLP: 1203 mGy-cm. mGy. LIMITATIONS: None. FINDINGS: VENTRICLES: Normal size and contour. CEREBRUM: Mild cortical atrophy. No masses. No hemorrhage. No midline shift. No evidence for acut e infarction. Few scattered areas of low density in the white matter most likely chronic small vessel ischemic changes. CEREBELLUM: No masses. No hemorrhage. No alteration of density. No evidence for acute infarction. EXTRAAXIAL SPACES: No fluid collections. No masses. ORBITS AND GLOBE: No intra- or extraconal masses. Normal contour of globe without masses. CALVARIUM: No fracture. PARANASAL SINUSES: No fluid or mucosal thickening. SOFT TISSUES: No mass or hematoma. OTHER: No other significant finding. IMPRESSION: Involutional changes of aging with mild chronic microvascular ischemia. No acute intrac ranial imaging findings. EVIDENCE OF ACUTE STROKE: NO. COMMENT: Quality ID # [id number]: Final reports with documentation of one or more dose reduction techniques (e.g., Automated exposure control, adjustment of the mA and/or kV according to patient size, use of iterative reconstruction technique) TECHNICAL DOCUMENTATION: JOB ID: [id number] [email or web address]- All Rights Reserved Reading location - IP/workstation name: [email or web address]
[2017-11-29 22:41] LABS: ALANINE AMINOTRANSFERASE 32 U/L (9-52); ALBUMIN 3.6 g/dL (3.5-5.0); ALKALINE PHOSPHATASE 84 U/L (38-126); ANION GAP 10 (5-19); ASPARTATE AMINO TRANSFERASE 44 U/L (14-36); BILIRUBIN,DIRECT 0.4 mg/dL (0.0-0.4); BILIRUBIN,TOTAL 1.1 mg/dL (0.2-1.3); BLOOD UREA NITROGEN 16 mg/dL (7-20); CALCIUM 9.8 mg/dL (8.4-10.2); CARBON DIOXIDE 22 mmol/L (22-30); CHLORIDE 114 mmol/L (98-107); CREATINE KINASE 209 U/L (30-135); GLUCOSE 79 mg/dL (75-110); POTASSIUM 3.9 mmol/L (3.6-5.0); SODIUM 146.2 mmol/L (137-145); TOTAL PROTEIN 6.9 g/dL (6.3-8.2)
--- NOTE | 2017-11-29 22:41 | RADIOLOGY REPORT (SQ) ---
EXAM DESCRIPTION: CHEST SINGLE VIEW COMPLETED DATE/TIME: 11/29/2017 10:32 pm REASON FOR STUDY: Slurred speech COMPARISON: 01/19/2016 EXAM PARAMETERS: NUMBER OF VIEWS: One view. TECHNIQUE: Single frontal radiographic view of the chest acquired. RADIATION DOSE: NA LIMITATIONS: None. FINDINGS: LUNGS AND PLEURA: No opacities, masses or pneumothorax. No pleural effusion. MEDIASTINUM AND HILAR STRUCTURES: No masses. Contour normal. HEART AND VASCULAR STRUCTURES: Heart normal in size. Normal vasculature. BONES: No acute findings. HARDWARE: None in the chest. OTHER: No other significant finding. IMPRESSION: NO ACUTE RADIOGRAPHIC FINDING IN THE CHEST. TECHNICAL DOCUMENTATION: JOB ID: [id number] [employer]- All Rights Reserved Reading location - IP/workstation name: [email or web address]
[2017-11-29 22:52] LABS: CREATINE KINASE MB 1.02 ng/mL (<4.55)
[2017-11-29 22:54] LABS: ABSOLUTE LYMPHOCYTES# (MANUAL) 2.6 10^3/uL (0.5-4.7); ABSOLUTE MONOCYTES # (MANUAL) 0.7 10^3/uL (0.1-1.4); ABSOLUTE NEUTROPHILS# (MANUAL) 1.3 10^3/uL (1.7-8.2); BASOPHILS % (MANUAL) 0 % (0-2); EOSINOPHILS % (MANUAL) 1 % (0-6); LYMPHOCYTES % (MANUAL) 54 % (13-45); MONOCYTES % (MANUAL) 15 % (3-13); SEGMENTED NEUTROPHILS % (MAN) 28 % (42-78); TOTAL CELLS COUNTED 100; TROPONIN I < 0.012 ng/mL
[2017-11-29 22:55] LABS: ANISOCYTOSIS 1+; TOXIC GRANULATION SLIGHT
[2017-11-29 22:56] LABS: PLATELET COMMENT DECREASED
[2017-11-30] MEDS ORDERED: ACETAMINOPHEN 325 MG TABLET PO PRN (01:30)
[2017-11-30] MEDS ORDERED: ENOXAPARIN SODIUM INJ 30 MG/0.3 ML DISP.SYRIN SUBCUT SCH (10:00)
[2017-11-30] MEDS ORDERED: LACTULOSE SYRUP 20 GM/30 ML UDCUP PO SCH ×3 (10:00→14:00)
[2017-11-30] MEDS ORDERED: AMLODIPINE BESYLATE 5 MG TABLET PO SCH (10:00)
[2017-11-30] MEDS ORDERED: ASPIRIN 325 MG TABLET, ENT COATED PO SCH (10:00)
[2017-11-30] MEDS ORDERED: LANSOPRAZOLE 30 MG TAB.RAP.DR PO SCH (10:00)
[2017-11-30] MEDS ORDERED: EZETIMIBE 10 MG TABLET PO SCH (10:00)
--- NOTE | 2017-11-30 10:06 | RADIOLOGY REPORT (SQ) ---
EXAM DESCRIPTION: MRI HEAD WITHOUT COMPLETED DATE/TIME: 11/30/2017 9:42 am REASON FOR STUDY: Slurred speech COMPARISON: None. TECHNIQUE: Multiplanar imaging includes non-contrasted T1, T2, FLAIR, and diffusion with ADC map seq uences. Images stored on PACS. LIMITATIONS: None. FINDINGS: ANATOMY: No anomalies. Normal vascular flow voids. Pituitary fossa normal. CSF SPACES: Atrophy induced prominence of ventricles and CSF spaces. CEREBRUM: High signal intensity lesions scattered throughout the white matter on FLAIR imaging with d istribution suggesting micro-vascular ischemic changes. No evidence of hemorrhage, mass, or extraaxi al fluid collection. POSTERIOR FOSSA: No signal alteration. No hemorrhage. No edema, masses or mass effect. Internal sahil tory canals, cerebello-pontine angles, mastoids normal. DIFFUSION IMAGING: Negative for acute or sub-acute infarction. ORBITS: No masses. Globes normal. PARANASAL SINUSES: No fluid levels. Mucosa normal. OTHER: No other significant finding. IMPRESSION: ATROPHY AND CHRONIC MICRO-VASCULAR ISCHEMIC CHANGES. OTHERWISE NORMAL MRI OF THE BRAIN W ITHOUT INTRAVENOUS GADOLINIUM CONTRAST. EVIDENCE OF ACUTE STROKE: NO. TECHNICAL DOCUMENTATION: JOB ID: [id number] [employer]- All Rights Reserved Reading location - IP/workstation name: [email or web address]
--- NOTE | 2017-11-30 10:08 | RADIOLOGY REPORT (SQ) ---
EXAM DESCRIPTION: MRA HEAD WITHOUT COMPLETED DATE/TIME: 11/30/2017 9:42 am REASON FOR STUDY: tia COMPARISON: None. TECHNIQUE: Axial 3-D [id number] acquisition imaging performed through the brain in the area of t [place]. Images reformatted using 3-D MIPS. LIMITATIONS: None. FINDINGS: SOURCE IMAGES: No unexpected findings on source images. No large masses. 3-D MIP: No aneurysm. No occlusions. No significant stenosis. OTHER: No other significant finding. IMPRESSION: NORMAL MRA OF THE [place]. TECHNICAL DOCUMENTATION: JOB ID: [id number] [employer]- All Rights Reserved Reading location - IP/workstation name: [email or web address]
[2017-11-30] MEDS: CARBIDOPA/LEVODOPA 10-100 MG TABLET PO SCH ×2 (10:50→18:16)
[2017-11-30] MEDS: CLONIDINE HCL 0.1 MG TABLET PO SCH ×2 (10:50→21:12)
[2017-11-30] MEDS: RIFAXIMIN 550 MG TABLET PO SCH ×2 (10:51→18:16)
[2017-11-30] MEDS: LACTULOSE SYRUP 20 GM/30 ML UDCUP PO SCH ×3 (14:25→21:13)
[2017-11-30] MEDS: IPRATROPIUM/ALBUTEROL 120 PUFF/4 GM MDI IH SCH ×3 (14:26→21:12)
[2017-11-30] MEDS ORDERED: LACTULOSE PO SCH (18:00)
[2017-11-30] MEDS ORDERED: RIFAXIMIN 550 MG TABLET PO SCH (22:00)
[2017-12-01] MEDS ORDERED: LANSOPRAZOLE 30 MG TAB.RAP.DR PO SCH (06:00)
[2017-12-01] MEDS ORDERED: LANSOPRAZOLE 15 MG TAB.RAP.DR PO SCH (06:00)
[2017-12-01 06:42] LABS: CALCIUM 9.8 mg/dL (8.4-10.2); GLUCOSE 101 mg/dL (75-110)
[2017-12-01 06:43] LABS: ALANINE AMINOTRANSFERASE 30 U/L (9-52); ALBUMIN 3.4 g/dL (3.5-5.0); ALKALINE PHOSPHATASE 77 U/L (38-126); ANION GAP 9 (5-19); ASPARTATE AMINO TRANSFERASE 50 U/L (14-36); BILIRUBIN,DIRECT 0.2 mg/dL (0.0-0.4); BILIRUBIN,TOTAL 0.9 mg/dL (0.2-1.3); BLOOD UREA NITROGEN 18 mg/dL (7-20); CARBON DIOXIDE 22 mmol/L (22-30); CHLORIDE 115 mmol/L (98-107); POTASSIUM 3.8 mmol/L (3.6-5.0); SODIUM 146.3 mmol/L (137-145); TOTAL PROTEIN 6.5 g/dL (6.3-8.2)
[2017-12-01 08:35] LABS: HEMATOCRIT 36.4 % (36.0-47.0); HEMOGLOBIN 12.3 g/dL (12.0-15.5); MEAN CORPUSCULAR HEMOGLOBIN 27.6 pg (27.0-33.4); MEAN CORPUSCULAR HGB CONC 33.7 g/dL (32.0-36.0); MEAN CORPUSCULAR VOLUME 82 fl (80-97); RED BLOOD COUNT 4.45 10^6/uL (3.72-5.28); RED CELL DISTRIBUTION WIDTH 15.8 % (11.5-14.0); WHITE BLOOD COUNT 4.6 10^3/uL (4.0-10.5)
[2017-12-01 08:43] VITALS: BP 143/69
[2017-12-01 09:05] LABS: PLATELET COUNT 92 10^3/uL (150-450)
[2017-12-01] MEDS ORDERED: ASPIRIN 325 MG TABLET, ENT COATED PO SCH (10:00)
[2017-12-01] MEDS ORDERED: ENTECAVIR 0.5 MG PO SCH (10:00)
--- NOTE | 2017-12-01 10:23 | PDOC DISCHARGE SUMMARY ---
General - Admit/Disc Date/PCP Admission Date/Primary Care Provider: 11/30/17 01:37 DENISE PARISI MD Discharge Date: 12/01/17 - Discharge Diagnosis (1) Slurred speech Is this a current diagnosis for this admission?: Yes Summary: Most likely related to the hepatic encephalopathy currently I do not appreciate any slurring of speech and all MRI/MRA is negative (2) Weakness generalized Is this a current diagnosis for this admission?: Yes Summary: Currently all getting better due to the hepatic encephalopathy (3) Hepatic encephalopathy Is this a current diagnosis for this admission?: Yes Summary: Ammonia level is much better continues the lactulose (4) Hepatitis C Is this a current diagnosis for this admission?: Yes Summary: Follow with the Dr. Schmitt as per discussed with him as outpatients (5) Hypertension Is this a current diagnosis for this admission?: Yes Summary: Currently all stable (6) Migraine Is this a current diagnosis for this admission?: Yes Summary: Follow neurology as outpatient (7) Parkinson disease Is this a current diagnosis for this admission?: Yes Summary: Currently all stable (8) Altered mental status Is this a current diagnosis for this admission?: Yes Summary: Due to hepatic encephalopathy currently all resolved - Additional Information Discharge Diet: Cardiac Discharge Activity: Activity As Tolerated Home Medications: Amlodipine Besylate [Norvasc 2.5 mg Tablet] 2.5 mg PO Q12 11/30/17 Clonidine HCl [Catapres 0.2 mg Tablet] 0.2 mg PO QHS 11/30/17 Entecavir [Baraclude] 0.5 mg PO DAILY 11/30/17 Ergocalciferol (Vitamin D2) [Drisdol 50,000 unit (1.25MG) Capsule] 50,000 unit PO SÁNCHEZ@1000 11/30/17 Ezetimibe [Zetia 10 mg Tablet] 10 mg PO NOON 11/30/17 Ipratropium/Albuterol Sulfate [Combivent Respimat 4 gm Mdi] 1 puff IH QID Lactulose [Constulose 10 gm/15 mL Oral Solution] 60 ml PO Q6 11/30/17 Omeprazole 20 mg PO DAILY 11/30/17 Potassium Chloride [Klor-Con 10 Meq Capsule ER] 10 meq PO Q12 11/30/17 Rifaximin [Xifaxan 550 mg Tablet] 550 mg PO Q12 11/30/17 Carbidopa/Levodopa [Carbidopa-Levodopa 10-100 Tab] 2 tab PO Q12 #0 12/01/17 History of Present Illness History of Present Illness: LISA KHANNA is a 76 year old female This is a 76-year-old female with a significant history of the hepatic encephalopathy chronic hepatitis and history of the migraine and multiple other comorbidity with the history of the questionable Parkinson's disorder recently see the neurologist and patients to seen by the Dr. Chavez an recently endoscopy was doneSeen in office 3 days back was all stable blood work came to the emergency departments with the 24 hours complaining of more weakness questionable slurred speech initial workup in the emergency department was all stable including the CT of the head was negative ER physician was concerned about possible TIA 1 2 decided to admit in the hospital Since I was several hospital admissions several MRI done in the past but most of the time patients have a ongoing hepatic encephalopathy with ammonia level is 140 which patients pretty much weakness coming from the Patient is currently taking the lactulose and rifaxin As today's patients not complaining any chest pain no shortness of the breath is complaining of weakness Patient MRI of the head and MRA was all negative Hospital Course Hospital Course: This is a 76-year-old female's significant history of hepatic encephalopathy currently seeing Dr. Schmitt as outpatients several hospital admissions came to the emergency department with the complaint of generalized weakness and the ER physician and a questionable slurred speech issue admitted in the hospital to further evaluations Since our MRI MRA was all negative patient's response very well with the lactulose treatments Since expressed to go home patient's back to the completely normal ammonia level was 142 coming down to 50 As per discussed with Dr. Schmitt and suggest follow-up outpatient Discussed with the patient and the family about all the issues all the test reports continues to take the lactulose as prescribed Patient's otherwise p.o. intake is good patients walk in the hallway without any problems patient's discharge with home health and physical therapy Patient already seen by neurology outpatients continues to follow that Physical Exam Vital Signs: Temp Pulse Resp BP Pulse Ox 98.2 F 76 18 143/69 H 100 12/01/17 08:42 12/01/17 08:42 12/01/17 08:42 12/01/17 08:42 12/01/17 08:42 Intake & Output 11/30/17 12/01/17 12/02/17 06:59 06:59 06:59 Intake Total 118 1065 Output Total 400 200 Balance -282 865 Weight 56.1 kg 56.4 kg General appearance: PRESENT: no acute distress, well-developed, well-nourished Head exam: PRESENT: atraumatic, normocephalic Eye exam: PRESENT: conjunctiva pink, EOMI, PERRLA. ABSENT: scleral icterus Ear exam: PRESENT: normal external ear exam Mouth exam: PRESENT: moist, tongue midline Neck exam: PRESENT: full ROM. ABSENT: carotid bruit, JVD, lymphadenopathy, thyromegaly Respiratory exam: PRESENT: clear to auscultation karma Cardiovascular exam: PRESENT: RRR. ABSENT: diastolic murmur, rubs, systolic murmur Pulses: PRESENT: normal dorsalis pedis pul, +2 pedal pulses bilateral Vascular exam: PRESENT: normal capillary refill GI/Abdominal exam: PRESENT: normal bowel sounds, soft. ABSENT: distended, guarding, mass, organolmegaly, rebound, tenderness Rectal exam: PRESENT: deferred Extremities exam: ABSENT: pedal edema Musculoskeletal exam: PRESENT: ambulatory Neurological exam: PRESENT: alert, awake, oriented to person, oriented to place , oriented to time, oriented to situation, CN II-XII grossly intact. ABSENT: motor sensory deficit Psychiatric exam: PRESENT: appropriate affect, normal mood. ABSENT: homicidal ideation, suicidal ideation Skin exam: PRESENT: dry, intact, warm. ABSENT: cyanosis, rash Results Laboratory Results: 12/01/17 06:06 12/01/17 06:06 11/30/17 12/01/17 12/01/17 10:15 06:06 06:06 WBC 4.6 RBC 4.45 Hgb 12.3 Hct 36.4 MCV 82 MCH 27.6 MCHC 33.7 RDW 15.8 H Plt Count 92 L Sodium 146.3 H Potassium 3.8 Chloride 115 H Carbon Dioxide 22 Anion Gap 9 BUN 18 Creatinine 0.70 Est GFR ( Amer) > 60 Est GFR (Non-Af Amer) > 60 Glucose 101 Calcium 9.8 Total Bilirubin 0.9 AST 50 H ALT 30 Alkaline Phosphatase 77 Ammonia 140.9 H Total Protein 6.5 Albumin 3.4 L 12/01/17 06:06 WBC RBC Hgb Hct MCV MCH MCHC RDW Plt Count Sodium Potassium Chloride Carbon Dioxide Anion Gap BUN Creatinine Est GFR ( Amer) Est GFR (Non-Af Amer) Glucose Calcium Total Bilirubin AST ALT Alkaline Phosphatase Ammonia 50.5 H Total Protein Albumin Impressions: Chest X-Ray 11/29/17 21:15 IMPRESSION: NO ACUTE RADIOGRAPHIC FINDING IN THE CHEST. Head CT 11/29/17 21:15 IMPRESSION: Involutional changes of aging with mild chronic microvascular ischemia. No acute intracranial imaging findings. EVIDENCE OF ACUTE STROKE: NO. Brain MRI with MRA 11/30/17 01:32 IMPRESSION: NORMAL MRA OF THE [place]. Head MRI 11/30/17 09:42 IMPRESSION: ATROPHY AND CHRONIC MICRO-VASCULAR ISCHEMIC CHANGES. OTHERWISE NORMAL MRI OF THE BRAIN WITHOUT INTRAVENOUS GADOLINIUM CONTRAST. EVIDENCE OF ACUTE STROKE: NO. Qualifiers - * PATIENT BEING DISCHARGED WITH ANY OF THE FOLLOWING DIAGNOSIS: No VTE patient discharged on overlapping Therapy?: Yes Plan Time Spent: Greater than 30 Minutes - Patient is discharged home with home health and physical therapy follow outpatients GI and neurology
[2017-12-01] MEDS ORDERED: EZETIMIBE 10 MG TABLET PO SCH (12:00)
--- NOTE | 2017-12-01 14:52 | RADIOLOGY REPORT (SQ) ---
EXAM DESCRIPTION: CAROTID DOPPLER COMPLETED DATE/TIME: 12/01/2017 2:03 pm REASON FOR STUDY: tia COMPARISON: None. TECHNIQUE: Grayscale ultrasound, Doppler velocity and spectra, and color Doppler images acquired of the extra-cranial carotid and vertebral arteries. Images stored on PACS. LIMITATIONS: None. FINDINGS: RIGHT CAROTID CCA Velocities: Within normal limits. ICA Velocities Peak systolic 0.56 proximal, 1.03 distal m/s. End diastolic 0.16 proximal, 0.29 distal m/s. Proximal ICA/CCA peak systolic ratio 1.1. Mild plaque in the bulb. LEFT CAROTID CCA Velocities: Within normal limits. ICA Velocities Peak systolic 0.80 proximal, 0.95 distal m/s. End diastolic 0.19 proximal, 0.32 distal m/s. Proximal ICA/CCA peak systolic ratio 1.0. Mild plaque in the bulb. VERTEBRAL ARTERIES: Antegrade flow. Normal waveforms. SUBCLAVIAN ARTERIES: Not imaged. OTHER: No other significant finding. IMPRESSION: NO HEMODYNAMICALLY SIGNIFICANT STENOSIS. COMMENT: Quality ID #[id number]: Velocity criteria are extrapolated from the diameter data as defined by t he Society of Radiologists in Ultrasound Consensus Conference. Radiology 2003: 229; 340-346. TECHNICAL DOCUMENTATION: JOB ID: [id number] [employer]- All Rights Reserved Reading location - IP/workstation name: [email or web address]
--- NOTE | 2017-12-01 18:49 | XCELERA REPORT ---
[address] [address] Transthoracic Echocardiogram Report Name: LISA KHANNA Age: 76 yrs Gender: Female : 1940 Patient Status: Inpatient Patient Location: [address] [place] [address] Study Date: 12/01/2017 09:05 AM Height: 67 in Weight: 125 lb BSA: 1.7 m2 Procedure: A complete two-dimensional transthoracic echocardiogram was performed (2D, M-mode, spectral and color flow Doppler). The study was technically adequate with some images being suboptimal in quality. Reason For Study: tia Ordering Physician: DENISE PARISI Performed By: Neto Navas Interpretation Summary The left ventricular ejection fraction is normal. There is mild concentric left ventricular hypertrophy. The left ventricle is grossly normal size. Doppler measurements suggest pseudonormalized left ventricular relaxation, which is associated with grade II/IV or mild to moderate diastolic dysfunction Wall motion cannot be accurately commented on, but no definite regional wall motion abnormalities noted. The right ventricular systolic function is normal. Borderline right atrial enlargement. The left atrium is mildly dilated. There is a trace amount of mitral regurgitation There is no mitral valve stenosis. There is no aortic valve stenosis No aortic regurgitation is present. There is a trace or physiologic amount of tricuspid regurgitation Tricuspid regurgitation jet envelope not well defined to measure RV systolic pressure accurately. The aortic root is not well visualized but is probably normal size. The inferior vena cava appeared normal and decreased > 50% with respiration (RAP 5-10 mmHg) There is no pericardial effusion. No definite cardiac source of CVA/TIA noted on this particular trans-thoracic study. Consider MAR if clinically indicated. May consider mobile cardiac telemetry monitoring (MCT) for ruling out transient AFIB. MMode/2D Measurements & Calculations RVDd: 1.3 cm LVIDd: 3.6 cm FS: 48.0 % Ao root diam: 2.6 cm IVSd: 1.5 cm LVIDs: 1.9 cm EDV(Teich): 55.7 ml Ao root area: 5.3 cm2 LVPWd: 1.1 cm ESV(Teich): 11.0 ml LA dimension: 3.8 cm EF(Teich): 80.2 % Doppler Measurements & Calculations MV E max chandrakant: MV P1/2t max chandrakant: Ao V2 max: LV V1 max P.0 cm/sec 81.2 cm/sec 190.0 cm/sec 7.2 mmHg MV A max chandrakant: MV P1/2t: 84.9 msec Ao max PG: LV V1 max: 106.4 cm/sec MVA(P1/2t): 2.6 cm2 14.4 mmHg 133.9 cm/sec MV E/A: 0.70 MV dec slope: 280.2 cm/sec2 MV dec time: 0.29 sec PA V2 max: TR max chandrakant: MV P1/2t-pr_phl: 120.6 cm/sec 268.5 cm/sec 84.9 msec PA max P.8 mmHgTR max P.8 mmHg Left Ventricle The left ventricle is grossly normal size. There is mild concentric left ventricular hypertrophy. The left ventricular ejection fraction is normal. Doppler measurements suggest pseudonormalized left ventricular relaxation, which is associated with grade II/IV or mild to moderate diastolic dysfunction. Wall motion cannot be accurately commented on, but no definite regional wall motion abnormalities noted. Right Ventricle The right ventricle is grossly normal size. There is normal right ventricular wall thickness. The right ventricular systolic function is normal. Atria Borderline right atrial enlargement. The left atrium is mildly dilated. Interarterial septum not well visualized and not well dopplered. Cannot comment on ASD/PFO presence. Mitral Valve The mitral valve leaflets are sclerotic, but show no functional abnormalities. There is no mitral valve stenosis. There is a trace amount of mitral regurgitation. Aortic Valve The aortic valve is grossly normal. There is no aortic valve stenosis. No aortic regurgitation is present. Tricuspid Valve The tricuspid valve is not well visualized, but is grossly normal. There is no tricuspid stenosis. There is a trace or physiologic amount of tricuspid regurgitation. Tricuspid regurgitation jet envelope not well defined to measure RV systolic pressure accurately. Pulmonic Valve The pulmonic valve is not well visualized. Great Vessels The aortic root is not well visualized but is probably normal size. The inferior vena cava appeared normal and decreased > 50% with respiration (RAP 5-10 mmHg). Effusions There is no pericardial effusion. Incidental Findings No definite cardiac source of CVA/TIA noted on this particular trans-thoracic study. Consider MAR if clinically indicated. May consider mobile cardiac telemetry monitoring (MCT) for ruling out transient AFIB. : DENISE PARISI > Keaton Lisa
--- NOTE | 2017-12-15 15:11 | PDOC H&P ---
History of Present Illness Admission Date/PCP: 11/30/17 01:37 DENISE PARISI MD Patient complains of: Generalized weakness History of Present Illness: LISA KHANNA is a 76 year old female This is a 76-year-old female with a significant history of the hepatic encephalopathy chronic hepatitis and history of the migraine and multiple other comorbidity with the history of the questionable Parkinson's disorder recently see the neurologist and patients to seen by the Dr. Chavez an recently endoscopy was doneSeen in office 3 days back was all stable blood work came to the emergency departments with the 24 hours complaining of more weakness questionable slurred speech initial workup in the emergency department was all stable including the CT of the head was negative ER physician was concerned about possible TIA 1 2 decided to admit in the hospital Since I was several hospital admissions several MRI done in the past but most of the time patients have a ongoing hepatic encephalopathy with ammonia level is 140 which patients pretty much weakness coming from the Patient is currently taking the lactulose and rifaxin As today's patients not complaining any chest pain no shortness of the breath is complaining of weakness Patient MRI of the head and MRA was all negative Past Medical History Cardiac Medical History: Reports: Hyperlipidema, Hypertension Denies: Coronary Artery Disease, Myocardial Infarction Pulmonary Medical History: Denies: Asthma, Bronchitis, Chronic Obstructive Pulmonary Disease (COPD), Pneumonia, Tuberculosis Neurological Medical History: Reports: Migraine Denies: Seizures Renal/ Medical History: Reports: Chronic Kidney Disease GI Medical History: Reports: Cirrhosis, Gastroesophageal Reflux Disease, Hepatitis GI History Note: Hepatic encephalopathy Musculoskeltal Medical History: Reports: Arthritis Psychiatric Medical History: Reports: Dementia, Depression Hematology: Reports: Anemia Infectious Medical History: Reports: Hepatitis C Past Surgical History Past Surgical History: Reports: Section, Tubal Ligation Denies: Hysterectomy, Pacemaker Social History Smoking Status: Unknown if Ever Smoked Last Time Smoked: 1977 Frequency of Alcohol Use: None Hx Recreational Drug Use: No Drugs: None Hx Prescription Drug Abuse: No Family History Family History: Reviewed & Not Pertinent Parental Family History Reviewed: Yes Children Family History Reviewed: Yes Sibling(s) Family History Reviewed.: Yes Medication/Allergy Home Medications: Amlodipine Besylate [Norvasc 2.5 mg Tablet] 2.5 mg PO Q12 11/30/17 Carbidopa/Levodopa [Carbidopa-Levodopa 10-100 Tab] 1 tab PO Q12 11/30/17 Clonidine HCl [Catapres 0.2 mg Tablet] 0.2 mg PO QHS 11/30/17 Entecavir [Baraclude] 0.5 mg PO DAILY 11/30/17 Ergocalciferol (Vitamin D2) [Drisdol 50,000 unit (1.25MG) Capsule] 50,000 unit PO SÁNCHEZ@1000 11/30/17 Ezetimibe [Zetia 10 mg Tablet] 10 mg PO NOON 11/30/17 Ipratropium/Albuterol Sulfate [Combivent Respimat 4 gm Mdi] 1 puff IH QID Lactulose [Constulose 10 gm/15 mL Oral Solution] 60 ml PO Q6 11/30/17 Omeprazole 20 mg PO DAILY 11/30/17 Potassium Chloride [Klor-Con 10 Meq Capsule ER] 10 meq PO Q12 11/30/17 Rifaximin [Xifaxan 550 mg Tablet] 550 mg PO Q12 11/30/17 Allergies/Adverse Reactions: divalproex sodium [From Depakote] Adverse Reaction (Intermediate, Verified 10/21 11:14) BEE STING Adverse Reaction (Severe, Uncoded 10/22/15 11:14) Review of Systems Constitutional: PRESENT: fatigue, weakness. ABSENT: chills, fever(s), headache( s), weight gain, weight loss Eyes: ABSENT: visual disturbances Ears: ABSENT: hearing changes Cardiovascular: ABSENT: chest pain, dyspnea on exertion, edema, orthropnea, palpitations Respiratory: ABSENT: cough, hemoptysis Gastrointestinal: ABSENT: abdominal pain, constipation, diarrhea, hematemesis, hematochezia, nausea, vomiting Genitourinary: ABSENT: dysuria, hematuria Musculoskeletal: ABSENT: joint swelling Integumentary: ABSENT: rash, wounds Neurological: ABSENT: abnormal gait, abnormal speech, confusion, dizziness, focal weakness, syncope Psychiatric: ABSENT: anxiety, depression, homidical ideation, suicidal ideation Endocrine: ABSENT: cold intolerance, heat intolerance, menstrual abnormalities, polydipsia, polyuria Hematologic/Lymphatic: ABSENT: easy bleeding, easy bruising, lymphadenopathy Physical Exam Vital Signs: Temp Pulse Resp BP Pulse Ox 98.2 F 83 16 134/74 H 100 11/30/17 12:00 11/30/17 12:00 11/30/17 12:00 11/30/17 12:00 11/30/17 08:00 Intake & Output 11/29/17 11/30/17 12/01/17 06:59 06:59 06:59 Intake Total 118 354 Output Total 400 Balance -282 354 Weight 56.1 kg General appearance: PRESENT: no acute distress, well-developed, well-nourished Head exam: PRESENT: atraumatic, normocephalic Eye exam: PRESENT: conjunctiva pink, EOMI, PERRLA. ABSENT: scleral icterus Ear exam: PRESENT: normal external ear exam Mouth exam: PRESENT: moist, tongue midline Neck exam: PRESENT: full ROM. ABSENT: carotid bruit, JVD, lymphadenopathy, thyromegaly Respiratory exam: PRESENT: clear to auscultation karma Cardiovascular exam: PRESENT: RRR. ABSENT: diastolic murmur, rubs, systolic murmur Pulses: PRESENT: normal dorsalis pedis pul, +2 pedal pulses bilateral Vascular exam: PRESENT: normal capillary refill GI/Abdominal exam: PRESENT: normal bowel sounds, soft. ABSENT: distended, guarding, mass, organolmegaly, rebound, tenderness Rectal exam: PRESENT: deferred Neurological exam: PRESENT: alert, awake, oriented to person, oriented to place , oriented to time, oriented to situation, CN II-XII grossly intact. ABSENT: motor sensory deficit Psychiatric exam: PRESENT: appropriate affect, normal mood. ABSENT: homicidal ideation, suicidal ideation Skin exam: PRESENT: dry, intact, warm. ABSENT: cyanosis, rash Results Laboratory Results: 11/30/17 10:15 Ammonia 140.9 H Impressions: Chest X-Ray 11/29/17 21:15 IMPRESSION: NO ACUTE RADIOGRAPHIC FINDING IN THE CHEST. Head CT 11/29/17 21:15 IMPRESSION: Involutional changes of aging with mild chronic microvascular ischemia. No acute intracranial imaging findings. EVIDENCE OF ACUTE STROKE: NO. Brain MRI with MRA 11/30/17 01:32 IMPRESSION: NORMAL MRA OF THE [place]. Head MRI 11/30/17 09:42 IMPRESSION: ATROPHY AND CHRONIC MICRO-VASCULAR ISCHEMIC CHANGES. OTHERWISE NORMAL MRI OF THE BRAIN WITHOUT INTRAVENOUS GADOLINIUM CONTRAST. EVIDENCE OF ACUTE STROKE: NO. Assessment & Plan - Diagnosis (1) Slurred speech Is this a current diagnosis for this admission?: Yes Plan: Patient MRI and MRA is all negativeSpeech is pretty much all normal (2) Weakness generalized Is this a current diagnosis for this admission?: Yes Plan: Most likely from hepatic encephalopathy (3) Hepatic encephalopathy Is this a current diagnosis for this admission?: Yes Plan: As per discussed with Dr. Schmitt continues to lactulose (4) Hepatitis C Qualifiers: Viral hepatitis chronicity: chronic Is this a current diagnosis for this admission?: Yes (5) Hypertension Qualifiers: Hypertension type: essential hypertension Is this a current diagnosis for this admission?: Yes Plan: Currently all stable (6) Migraine Qualifiers: Migraine type: unspecified Intractability: not intractable Is this a current diagnosis for this admission?: Yes (7) Parkinson disease Is this a current diagnosis for this admission?: Yes Plan: Patient seen by the neurology recently used to see the Dr. Mccauley in the past (8) Altered mental status Qualifiers: Altered mental status type: unspecified Qualified Code(s): R41.82 - Altered mental status, unspecified Is this a current diagnosis for this admission?: Yes Plan: Most likely from the hepatic encephalopathy elevated ammonia will try to continuous the lactulose repeat the ammonia level in the morning rule out other infectious process - Time Time Spent: 30 to 50 Minutes Medications reviewed and adjusted accordingly: Yes Anticipated discharge: Home Within: Other - Inpatient Certification Medical Necessity: Need Close Monitoring Due to Risk of Patient Decompensation, Need For IV Fluids, Need for IV Antibiotics Post Hospital Care: D/C [employer] Documentation - Plan Summary Plan Summary: Admitted in [facility] continues to current medications see other MD orders
== END 2017-12-01 10:38 | disposition home health service (06) | DRG 442 ==
LOC: ER 18:42 → EH 11-30 01:37 → 3S 11-30 03:30
PROVIDERS: ADMIT Family Medicine; ATTEND Family Medicine
DX: K72.90 Hepatic failure, unspecified without coma (principal); B18.1 Chronic viral hepatitis B without delta-agent; G43.909 Migraine, unspecified, not intractable, without status migrainosus; G20 Parkinson's disease; E78.00 Pure hypercholesterolemia, unspecified; K21.9 Gastro-esophageal reflux disease without esophagitis; M19.90 Unspecified osteoarthritis, unspecified site; N18.9 Chronic kidney disease, unspecified; I12.9 Hypertensive chronic kidney disease with stage 1 through stage 4 chronic kidney disease, or unspecified chronic kidney disease; F32.9 Major depressive disorder, single episode, unspecified; F02.80 Dementia in other diseases classified elsewhere, unspecified severity, without behavioral disturbance, psychotic disturbance, mood disturbance, and anxiety; D63.1 Anemia in chronic kidney disease; B18.2 Chronic viral hepatitis C; Z79.899 Other long term (current) drug therapy; Z88.6 Allergy status to analgesic agent; Z91.030 Bee allergy status
CPT/HCPCS: 36415; 70450; 70544; 70551; 71045; 80053; 81001; 82140; 82550; 82553; 84484; 85025; 85027; 85610; 85730; 87040; 87086; 93005; 93010; 93306; 93880; 99285; A9270-GY; G8978-GP; G8979-GP; J3490

== ENCOUNTER → 2018-02-07 | Outpatient (CLI) | payer MEDICARE, BC, OTHER ==
[2018-02-07 15:49] LABS: ALANINE AMINOTRANSFERASE 28 U/L (9-52); ALBUMIN 4.2 g/dL (3.5-5.0); ALKALINE PHOSPHATASE 95 U/L (38-126); ANION GAP 13 (5-19); ASPARTATE AMINO TRANSFERASE 47 U/L (14-36); BILIRUBIN,DIRECT 0.3 mg/dL (0.0-0.4); BILIRUBIN,TOTAL 0.7 mg/dL (0.2-1.3); BLOOD UREA NITROGEN 18 mg/dL (7-20); CALCIUM 9.9 mg/dL (8.4-10.2); CARBON DIOXIDE 24 mmol/L (22-30); CHLORIDE 108 mmol/L (98-107); GLUCOSE 94 mg/dL (75-110); POTASSIUM 4.4 mmol/L (3.6-5.0); TOTAL PROTEIN 7.5 g/dL (6.3-8.2)
[2018-02-08 10:25] LABS: HEMATOCRIT 38.9 % (36.0-47.0); HEMOGLOBIN 13.2 g/dL (12.0-15.5); MEAN CORPUSCULAR HEMOGLOBIN 26.9 pg (27.0-33.4); MEAN CORPUSCULAR HGB CONC 33.8 g/dL (32.0-36.0); MEAN CORPUSCULAR VOLUME 80 fl (80-97); RED BLOOD COUNT 4.89 10^6/uL (3.72-5.28); RED CELL DISTRIBUTION WIDTH 16.6 % (11.5-14.0)
[2018-02-08 10:26] LABS: PLATELET COUNT 94 10^3/uL (150-450)
[2018-02-10 17:45] LABS: HELICOBACTER PYLORI IGA AB <9.0 units (0.0-8.9); HELICOBACTER PYLORI IGG AB <0.80 (0.00-0.79); HELICOBACTER PYLORI IGM AB <9.0 units (0.0-8.9)
== END ==
LOC: LAB 14:56
PROVIDERS: ATTEND Internal Medicine Gastroenterology
DX: K74.69 Other cirrhosis of liver (principal); K31.89 Other diseases of stomach and duodenum
CPT/HCPCS: 36415; 80048; 80076; 82140; 85025; 85027; 86677

== ENCOUNTER 2018-04-22 19:11 | Emergency (ER) | payer MEDICARE, BC, OTHER ==
--- NOTE | 2018-04-22 19:29 | ER Document Report ---
ED Medical Screen (RME) - General Chief Complaint: Altered Mental Status Stated Complaint: ALTERED MENTAL STATUS Time Seen by Provider: 04/22/18 19:26 Mode of Arrival: Wheelchair Information source: Patient, Relative TRAVEL OUTSIDE OF THE [place] IN LAST 30 DAYS: No - HPI Patient complains to provider of: ONOFRE; confusion Onset: Yesterday - Pt. with confusion and ONOFRE since yesterday. - Related Data Allergies/Adverse Reactions: divalproex sodium [From Depakote] Adverse Reaction (Intermediate, Verified 10/22/15 11:14) BEE STING Adverse Reaction (Severe, Uncoded 10/22/15 11:14) Past Medical History - Social History Family history: CAD, Hypertension - Past Medical History Cardiac Medical History: Reports: Hx Hypercholesterolemia, Hx Hypertension Denies: Hx Coronary Artery Disease, Hx Heart Attack Pulmonary Medical History: Denies: Hx Asthma, Hx Bronchitis, Hx COPD, Hx Pneumonia, Hx Tuberculosis Neurological Medical History: Reports: Hx Migraine. Denies: Hx Cerebrovascular Accident, Hx Seizures Renal/ Medical History: Denies: Hx Peritoneal Dialysis GI Medical History: Reports: Hx Cirrhosis, Hx Gastroesophageal Reflux Disease, Hx Hepatitis, Hx Liver Failure - Hepatic Encephalopathy Musculoskeltal Medical History: Reports Hx Arthritis Psychiatric Medical History: Reports: Hx Dementia, Hx Depression Infectious Medical History: Reports: Hx Hepatitis Past Surgical History: Reports: Hx Section, Hx Tubal Ligation. Denies: Hx Hysterectomy, Hx Pacemaker - Immunizations Immunizations up to date: Yes Hx Diphtheria, Pertussis, Tetanus Vaccination: Yes History of Influenza Vaccine for 01/2017 - 06/2017 Season: No Physical Exam - Vital signs Vitals: Temp Pulse Resp BP Pulse Ox 98.3 F 96 20 157/72 H 99 04/22/18 19:18 04/22/18 19:18 04/22/18 19:18 04/22/18 19:18 04/22/18 19:18 Course - Vital Signs Vital signs: Temp Pulse Resp BP Pulse Ox 98.3 F 96 20 157/72 H 99 04/22/18 19:18 04/22/18 19:18 04/22/18 19:18 04/22/18 19:18 04/22/18 19:18 Doctor's Discharge - Discharge Referrals: DENISE PARISI MD [Primary Care Provider] - Follow up as needed
[2018-04-22] MEDS ORDERED: NORMAL SALINE 1000 ML 500 ML IV ONE (19:48)
--- NOTE | 2018-04-22 20:35 | EKG REPORT ---
SEVERITY:- NORMAL ECG - SINUS RHYTHM : Confirmed by: Jean Claude Breaux MD 22-Apr-2018 20:35:06
[2018-04-22 20:53] LABS: ABSOLUTE LYMPHOCYTES (AUTO) 1.9 10^3/uL (0.5-4.7); ABSOLUTE MONOCYTES (AUTO) 0.4 10^3/uL (0.1-1.4); ABSOLUTE NEUT (AUTO) 2.2 10^3/uL (1.7-8.2); BASOPHILS % (AUTO) 0.7 % (0-2); HEMATOCRIT 37.2 % (36.0-47.0); HEMOGLOBIN 12.5 g/dL (12.0-15.5); LYMPHOCYTES % (AUTO) 40.7 % (13-45); MEAN CORPUSCULAR HEMOGLOBIN 27.5 pg (27.0-33.4); MEAN CORPUSCULAR HGB CONC 33.6 g/dL (32.0-36.0); MEAN CORPUSCULAR VOLUME 82 fl (80-97); MONOCYTES % (AUTO) 9.1 % (3-13); RED BLOOD COUNT 4.55 10^6/uL (3.72-5.28); RED CELL DISTRIBUTION WIDTH 16.9 % (11.5-14.0); SEGMENTED NEUTROPHILS % (AUTO) 48.5 % (42-78); TOTAL CELLS COUNTED % (AUTO) 100 %; WHITE BLOOD COUNT 4.6 10^3/uL (4.0-10.5)
--- NOTE | 2018-04-22 21:05 | RADIOLOGY REPORT (SQ) ---
EXAM DESCRIPTION: CT HEAD WITHOUT IV CONTRAST COMPLETED DATE/TME: 04/22/2018 19:26 CLINICAL HISTORY: 77 years, Female, confusion COMPARISON: 11/30/2017 CT brain TECHNIQUE: 289 Images stored on PACS. All CT scanners at this facility use dose modulation, iterative reconstruction, and/or weight based dosing when appropriate to reduce radiation dose to as low as reasonably achievable (ALARA). [facility]: Dose Right [facility]: CareDose [facility]: Dose Right [facility]: Teradose 4D [facility]: [employer] LIMITATIONS: None. FINDINGS: The globes are intact. The paranasal sinuses and mastoid air cells are unremarkable. No displaced or depressed skull fracture. No intra or extra-axial hemorrhage. Bilateral basal ganglia calcifications. Diffuse age-appropriate atrophy. CT is limited for evaluation of acute infarct. No CT evidence for large or territorial acute infarct. No mass or midline shift. Small vessel ischemic change, as before IMPRESSION: Atrophy with small vessel ischemic change. TECHNICAL DOCUMENTATION: Quality ID # [id number]: Final reports with documentation of one or more dose reduction techniques (e.g., Automated exposure control, adjustment of the mA and/or kV according to patient size, use of iterative reconstruction technique) copyright 2010 [employer]- All Rights Reserved
[2018-04-22 21:09] LABS: ALANINE AMINOTRANSFERASE 15 U/L (9-52); ALBUMIN 4.1 g/dL (3.5-5.0); ALKALINE PHOSPHATASE 93 U/L (38-126); ASPARTATE AMINO TRANSFERASE 73 U/L (14-36); BILIRUBIN,DIRECT 0.7 mg/dL (0.0-0.4); BILIRUBIN,TOTAL 1.1 mg/dL (0.2-1.3); BLOOD UREA NITROGEN 20 mg/dL (7-20); CALCIUM 10.1 mg/dL (8.4-10.2); GLUCOSE 108 mg/dL (75-110); POTASSIUM 5.1 mmol/L (3.6-5.0); TOTAL PROTEIN 7.6 g/dL (6.3-8.2)
[2018-04-22 21:14] LABS: ANION GAP 5 (5-19); CARBON DIOXIDE 25 mmol/L (22-30); CHLORIDE 113 mmol/L (98-107); SODIUM 142.7 mmol/L (137-145)
[2018-04-22 21:24] LABS: PLATELET COUNT 83 10^3/uL (150-450)
[2018-04-22] MEDS ORDERED: LACTULOSE SYRUP 20 GM/30 ML UDCUP PO ONE ×2 (21:37→22:04)
--- NOTE | 2018-04-22 22:08 | ER Document Report ---
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 Family reports that this has happened in the past when her ammonia levels have gotten too high. Patient was hospitalized in November 2017 for similar circumstances although patient and family know that she was much more confused at that time. She has not seen her primary care doctor regarding today's concerns. She has been taking lactulose as directed and is having at least 3 bowel movements daily. Nothing is been noted to improve or worsen her symptoms. She denies any abdominal pain, nausea, vomiting, fever, headache, neck pain, cough, sputum production or chest pain. No focal weakness or numbness. TRAVEL OUTSIDE OF THE [place] IN LAST 30 DAYS: No - Related Data Allergies/Adverse Reactions: divalproex sodium [From Depakote] Adverse Reaction (Intermediate, Verified 10/22/15 11:14) BEE STING Adverse Reaction (Severe, Uncoded 10/22/15 11:14) Past Medical History - General Information source: Patient, Relative - Social History Smoking Status: Former Smoker Frequency of alcohol use: None Drug Abuse: None Lives with: Family Family History: Reviewed & Not Pertinent Patient has suicidal ideation: No Patient has homicidal ideation: No - Past Medical History Cardiac Medical History: Reports: Hx Hypercholesterolemia, Hx Hypertension Denies: Hx Coronary Artery Disease, Hx Heart Attack Pulmonary Medical History: Denies: Hx Asthma, Hx Bronchitis, Hx COPD, Hx Pneumonia, Hx Tuberculosis Neurological Medical History: Reports: Hx Migraine. Denies: Hx Cerebrovascular Accident, Hx Seizures Renal/ Medical History: Denies: Hx Peritoneal Dialysis GI Medical History: Reports: Hx Cirrhosis, Hx Gastroesophageal Reflux Disease, Hx Hepatitis, Hx Liver Failure - Hepatic Encephalopathy Musculoskeletal Medical History: Reports Hx Arthritis Psychiatric Medical History: Reports: Hx Dementia, Hx Depression Infectious Medical History: Reports: Hx Hepatitis Past Surgical History: Reports: Hx Section, Hx Tubal Ligation. Denies: Hx Hysterectomy, Hx Pacemaker - Immunizations Immunizations up to date: Yes Hx Diphtheria, Pertussis, Tetanus Vaccination: Yes Hx Pneumococcal Vaccination: 03/10/10 Review of Systems - Review of Systems Notes: Constitutional: Negative for fever. Positive for confusion HENT: Negative for sore throat. Eyes: Negative for visual changes. Cardiovascular: Negative for chest pain. Respiratory: Negative for shortness of breath. Gastrointestinal: Negative for abdominal pain, vomiting or diarrhea. Genitourinary: Negative for dysuria. Musculoskeletal: Negative for back pain. Skin: Negative for rash. Neurological: Negative for headaches, weakness or numbness. 10 point ROS negative except as marked above and in HPI. Physical Exam - Vital signs Vitals: Temp Pulse Resp BP Pulse Ox 98.3 F 96 20 157/72 H 99 04/22/18 19:18 04/22/18 19:18 04/22/18 19:18 04/22/18 19:18 04/22/18 19:18 Interpretation: Hypertensive Notes: PHYSICAL EXAMINATION: GENERAL: Elderly, somewhat frail but in no acute distress HEAD: Atraumatic, normocephalic. EYES: Pupils equal round and reactive to light, extraocular movements intact, sclera anicteric, conjunctiva are normal. ENT: nares patent, oropharynx clear without exudates. Moderate dry mucous membranes. NECK: Normal range of motion, supple without lymphadenopathy LUNGS: Breath sounds clear to auscultation bilaterally and equal. No wheezes ra les or rhonchi. HEART: Regular rate and rhythm without murmurs ABDOMEN: Soft, nontender, normoactive bowel sounds. No guarding, no rebound. No masses appreciated. EXTREMITIES: Normal range of motion, no pitting or edema. No cyanosis. NEUROLOGICAL: Face symmetric. Tongue protrudes midline. Extraocular motions intact. Pupils are 2 mm and equally reactive. Normal speech. 5 out of 5 strength in both the distal and proximal upper and lower extremities bilaterally. Sensation is grossly intact throughout. Finger to nose testing normal. Pronator drift normal. PSYCH: Alert, oriented to person, place, disoriented to year and month SKIN: Warm, Dry, normal turgor, no rashes or lesions noted. Course - Re-evaluation Re-evalutation: 04/22/18 22:06 Patient presents with mild confusion at home although it is alert, oriented to person, place, although struggles with year and month which family states is relatively normal for her. She denies any other complaints beyond mild confusion nor does family. Labs and CT of the head are unremarkable the exception of a moderately elevated ammonia level despite taking 40 mg's of lactulose 3 times daily as directed and having adequate bowel movements. Urinalysis is pending. I believe the patient is an appropriate candidate for outpatient management as is her family. We will increase her lactulose to 60 g 3 times daily for the next 3 days and have her follow-up with Dr. Parisi in the office tomorrow or Monday. Family and patient are very agreeable to this. Admission was offered and declined. 04/22/18 23:11 Patient's urinalysis does show findings consistent with acute urinary tract infection. Urinalysis has been sent for culture. Patient has been started on cephalexin. At this time will discharge with return precautions and follow-up recommendations. Verbal discharge instructions given a the bedside and opportunity for questions given. Medication warnings reviewed. Patient is in agreement with this plan and has verbalized understanding of return precautions and the need for primary care follow-up in the next 24-72 hours. - Vital Signs Vital signs: Temp Pulse Resp BP Pulse Ox 98.3 F 81 16 153/80 H 100 04/22/18 19:18 04/22/18 22:14 04/22/18 23:00 04/22/18 22:14 04/22/18 23:00 - Laboratory Result Diagrams: 04/22/18 20:30 04/22/18 20:30 Laboratory results interpreted by me: 04/22/18 04/22/18 04/22/18 20:30 20:30 20:30 RDW 16.9 H Plt Count 83 L Potassium 5.1 H Chloride 113 H Est GFR (Non-Af Amer) 58 L Direct Bilirubin 0.7 H AST 73 H Ammonia 51.0 H Urine Protein Urine Blood Ur Leukocyte Esterase 04/22/18 22:15 RDW Plt Count Potassium Chloride Est GFR (Non-Af Amer) Direct Bilirubin AST Ammonia Urine Protein 30 H Urine Blood MODERATE H Ur Leukocyte Esterase MODERATE H - Diagnostic Test Radiology reviewed: Image reviewed, Reports reviewed Radiology results interpreted by me: 04/23/18 01:58 CT head: No acute intracranial bleed or mass - EKG Interpretation by Me Additional EKG results interpreted by me: 04/23/18 01:58 Sinus rhythm, rate 78. No ST elevations or depressions. QTC 447. Discharge - Discharge Clinical Impression: Hyperammonemia Altered mental status Qualifiers: Altered mental status type: disorientation Qualified Code(s): R41.0 - Disorientation, unspecified Urinary tract infection Qualifiers: Urinary tract infection type: acute cystitis Hematuria presence: without hematuria Qualified Code(s): N30.00 - Acute cystitis without hematuria Condition: Stable Disposition: HOME, SELF-CARE Additional Instructions: Please follow-up with Dr. Parisi tomorrow or Monday in the office. Your ammonia level was moderately elevated. Please increase your lactulose to 60 g 3 times daily for the next 2 days. Take all other medications as directed. You are als o being started on antibiotics to cover for a urinary tract infection. These take until completed. Return if you develop a fever greater than 100.4 F, pass out, have worsening of your confusion, develop weakness, numbness, or any other symptoms that are worrisome to you. Prescriptions: Cephalexin Monohydrate [Keflex 500 mg Capsule] 500 mg PO Q6H 5 Days capsule Referrals: DENISE PARISI MD [Primary Care Provider] - Follow up tomorrow
[2018-04-22 22:23] VITALS: BP 153/80
[2018-04-22 22:35] LABS: APPEARANCE,URINE CLEAR; BILIRUBIN,URINE NEGATIVE (NEGATIVE); COLOR,URINE YELLOW; GLUCOSE, URINE NEGATIVE (NEGATIVE); KETONES,URINE NEGATIVE (NEGATIVE); LEUKOCYTE ESTERASE,URINE MODERATE (NEGATIVE); NITRITE,URINE NEGATIVE (NEGATIVE); PROTEIN,URINE 30 mg/dL (NEGATIVE); UROBILINOGEN,URINE NEGATIVE mg/dL (<2.0)
[2018-04-22] MEDS ORDERED: CEPHALEXIN 500 MG CAPSULE PO ONE (23:09)
== END 2018-04-22 23:18 | disposition home or self-care (01) ==
LOC: ER 19:11
DX: N30.00 Acute cystitis without hematuria (principal); E72.20 Disorder of urea cycle metabolism, unspecified; K75.9 Inflammatory liver disease, unspecified; K72.90 Hepatic failure, unspecified without coma; Z79.899 Other long term (current) drug therapy; R41.0 Disorientation, unspecified; I10 Essential (primary) hypertension; Z87.891 Personal history of nicotine dependence
CPT/HCPCS: 93005; 99285; 96360; 36415; 87086; 82140; 85025; 80053; 81001; 84484; 70450; 93010; A9270 ×2; J7030

== ENCOUNTER 2018-05-15 08:11 | Emergency (ER) | payer MEDICARE, BC, OTHER ==
[2018-05-15] MEDS ORDERED: DIPHENHYDRAMINE HCL 50 MG/ML VIAL IV ONE (09:30)
[2018-05-15] MEDS ORDERED: METOCLOPRAMIDE HCL INJ/PF 10 MG/2 ML SDV IV ONE (09:30)
[2018-05-15] MEDS ORDERED: KETOROLAC TROMETHAMINE INJ/PF 30 MG/1 ML SDV IV ONE (09:30)
[2018-05-15] MEDS ORDERED: NORMAL SALINE 500 ML IV ONE (09:31)
--- NOTE | 2018-05-15 10:40 | ER Document Report ---
ED General - General Chief Complaint: Headache >24 hrs old Stated Complaint: HEADACHE Time Seen by Provider: 05/15/18 09:13 Primary Care Provider: DENISE PARISI MD [Primary Care Provider] - Follow up as needed TRAVEL OUTSIDE OF THE [place] IN LAST 30 DAYS: No - HPI Patient complains to provider of: Headache Notes: Patient coming in for evaluation of a headache. Patient has a history of liver cirrhosis. Patient was recently seen and had an increase in her lactulose to 60 g daily. Patient states she continues to take lactulose and is having loose st ools because of the increase patient does have Fioricet but she states that he has been using for her migraines at home however states that the Fioricet is not working at this time. Denies any trauma patient denies any fevers chills nausea vomiting denies any changes in her disposition the last week states headache ongoing now for 48 hours. Patient resting comfortably upon my evaluation - Related Data Allergies/Adverse Reactions: divalproex sodium [From Depakote] Adverse Reaction (Intermediate, Verified 05/15/18 08:14) BEE STING Adverse Reaction (Severe, Uncoded 05/15/18 08:14) Past Medical History - Social History Smoking Status: Unknown if Ever Smoked Family History: Reviewed & Not Pertinent Patient has suicidal ideation: No Patient has homicidal ideation: No - Past Medical History Cardiac Medical History: Reports: Hx Hypercholesterolemia, Hx Hypertension Denies: Hx Coronary Artery Disease, Hx Heart Attack Pulmonary Medical History: Denies: Hx Asthma, Hx Bronchitis, Hx COPD, Hx Pneumonia, Hx Tuberculosis Neurological Medical History: Reports: Hx Migraine. Denies: Hx Cerebrovascular Accident, Hx Seizures Renal/ Medical History: Denies: Hx Peritoneal Dialysis GI Medical History: Reports: Hx Cirrhosis, Hx Gastroesophageal Reflux Disease, Hx Hepatitis, Hx Liver Failure - Hepatic Encephalopathy Musculoskeletal Medical History: Reports Hx Arthritis Psychiatric Medical History: Reports: Hx Dementia, Hx Depression Infectious Medical History: Reports: Hx Hepatitis Past Surgical History: Reports: Hx Section, Hx Tubal Ligation. Denies: Hx Hysterectomy, Hx Pacemaker - Immunizations Immunizations up to date: Yes Hx Diphtheria, Pertussis, Tetanus Vaccination: Yes Hx Pneumococcal Vaccination: 03/10/10 Review of Systems - Review of Systems Constitutional: No symptoms reported EENT: No symptoms reported Cardiovascular: No symptoms reported Respiratory: No symptoms reported Gastrointestinal: No symptoms reported Genitourinary: No symptoms reported Female Genitourinary: No symptoms reported Musculoskeletal: No symptoms reported Skin: No symptoms reported Hematologic/Lymphatic: No symptoms reported Neurological/Psychological: Headaches -: Yes All other systems reviewed and negative Physical Exam - Vital signs Vitals: Temp Pulse Resp BP Pulse Ox 98.1 F 83 18 147/60 H 98 05/15/18 08:18 05/15/18 08:18 05/15/18 08:18 05/15/18 08:18 05/15/18 08:18 Interpretation: Normal - General General appearance: Appears well, Alert - HEENT Head: Normocephalic, Atraumatic Eyes: Normal Pupils: PERRL - Respiratory Respiratory status: No respiratory distress Chest status: Nontender Breath sounds: Normal Chest palpation: Normal - Cardiovascular Rhythm: Regular Heart sounds: Normal auscultation Murmur: No - Abdominal Inspection: Normal Distension: No distension Bowel sounds: Normal Tenderness: Nontender Organomegaly: No organomegaly - Back Back: Normal, Nontender - Extremities General upper extremity: Normal inspection, Nontender, Normal color, Normal ROM, Normal temperature General lower extremity: Normal inspection, Nontender, Normal color, Normal ROM, Normal temperature, Normal weight bearing. 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 The patient is neurologically intact. Given the extremely low risk of these diagnoses further testing and evaluation for these possibilities does not appear to be indicated at this time. The patient has been instructed to return if the symptoms worsen or change in any way.. - Vital Signs Vital signs: Temp Pulse Resp BP Pulse Ox 98.6 F 84 15 148/66 H 99 05/15/18 13:18 05/15/18 13:18 05/15/18 13:18 05/15/18 13:18 05/15/18 13:18 - Laboratory Result Diagrams: 05/15/18 11:00 05/15/18 11:00 Laboratory results interpreted by me: 05/15/18 05/15/18 05/15/18 10:31 11:00 11:00 WBC 3.4 L RDW 17.5 H Plt Count 80 L Lymphocytes % (Manual) 47 H Abs Neuts (Manual) 1.6 L Chloride 114 H Est GFR (Non-Af Amer) 59 L AST 42 H Urine Protein 30 H Urine Blood MODERATE H Ur Leukocyte Esterase TRACE H Discharge - Discharge Clinical Impression: Headache Qualifiers: Headache type: unspecified Headache chronicity pattern: unspecified pattern Intractability: not intractable Qualified Code(s): R51 - Headache Condition: Good Disposition: HOME, SELF-CARE Instructions: Headache ([facility]) Additional Instructions: Your evaluation today does not show any signs of any critical pathology her morning level is negative I would recommend taking the Compazine as prescribed to help out with any headaches that you have them acetate your home medications. Return to ER symptoms worsen Prescriptions: Prochlorperazine Maleate [Compazine] 5 mg PO Q6 #30 tablet Referrals: DENISE PARISI MD [Primary Care Provider] - Follow up as needed
[2018-05-15 10:58] LABS: APPEARANCE,URINE SLIGHTLY-CLOUDY; BILIRUBIN,URINE NEGATIVE (NEGATIVE); COLOR,URINE YELLOW; GLUCOSE, URINE NEGATIVE (NEGATIVE); KETONES,URINE NEGATIVE (NEGATIVE); LEUKOCYTE ESTERASE,URINE TRACE (NEGATIVE); NITRITE,URINE NEGATIVE (NEGATIVE); PROTEIN,URINE 30 mg/dL (NEGATIVE); URINE SPECIFIC GRAVITY 1.013; UROBILINOGEN,URINE NEGATIVE mg/dL (<2.0)
[2018-05-15 11:19] LABS: HEMATOCRIT 36.9 % (36.0-47.0); HEMOGLOBIN 12.6 g/dL (12.0-15.5); MEAN CORPUSCULAR HEMOGLOBIN 28.7 pg (27.0-33.4); MEAN CORPUSCULAR HGB CONC 34.2 g/dL (32.0-36.0); MEAN CORPUSCULAR VOLUME 84 fl (80-97); RED BLOOD COUNT 4.41 10^6/uL (3.72-5.28); RED CELL DISTRIBUTION WIDTH 17.5 % (11.5-14.0); WHITE BLOOD COUNT 3.4 10^3/uL (4.0-10.5)
[2018-05-15 12:01] LABS: ABSOLUTE LYMPHOCYTES# (MANUAL) 1.6 10^3/uL (0.5-4.7); ABSOLUTE MONOCYTES # (MANUAL) 0.2 10^3/uL (0.1-1.4); ABSOLUTE NEUTROPHILS# (MANUAL) 1.6 10^3/uL (1.7-8.2); ALANINE AMINOTRANSFERASE 27 U/L (9-52); ALKALINE PHOSPHATASE 71 U/L (38-126); ANION GAP 5 (5-19); ASPARTATE AMINO TRANSFERASE 42 U/L (14-36); BASOPHILS % (MANUAL) 0 % (0-2); BILIRUBIN,DIRECT 0.3 mg/dL (0.0-0.4); BILIRUBIN,TOTAL 0.7 mg/dL (0.2-1.3); BLOOD UREA NITROGEN 16 mg/dL (7-20); CALCIUM 9.9 mg/dL (8.4-10.2); CARBON DIOXIDE 25 mmol/L (22-30); CHLORIDE 114 mmol/L (98-107); EOSINOPHILS % (MANUAL) 0 % (0-6); GLUCOSE 91 mg/dL (75-110); LYMPHOCYTES % (MANUAL) 47 % (13-45); MONOCYTES % (MANUAL) 6 % (3-13); POTASSIUM 4.5 mmol/L (3.6-5.0); SEGMENTED NEUTROPHILS % (MAN) 47 % (42-78); SODIUM 144.4 mmol/L (137-145); TOTAL CELLS COUNTED 100
[2018-05-15 12:03] LABS: ANISOCYTOSIS 1+; PLATELET COMMENT DECREASED; PLATELET COUNT 80 10^3/uL (150-450); TARGET CELLS SLIGHT
[2018-05-15 13:19] VITALS: BP 148/66
== END 2018-05-15 13:24 | disposition home or self-care (01) ==
LOC: ER 08:11
DX: G43.909 Migraine, unspecified, not intractable, without status migrainosus (principal); I10 Essential (primary) hypertension; K74.60 Unspecified cirrhosis of liver; Z79.899 Other long term (current) drug therapy
CPT/HCPCS: 99284; 96374; 96375; 36415; 82140; 85025; 80053; 81001; J1200; J1885; J2765; J7040

== ENCOUNTER → 2018-07-03 | Outpatient (CLI) | payer MEDICARE, BC, OTHER ==
--- NOTE | 2018-07-03 10:45 | WOMENS IMAGING REPORT ---
EXAM DESCRIPTION: 3D SCREENING MAMMO BILAT COMPLETED DATE/TIME: 07/03/2018 10:09 am REASON FOR STUDY: Z12.31 ROUTINE 3D BILATERAL SCREENING Z12.31 ENCNTR SCREEN MAMMOGRAM FOR MALIGNAN T NEOPLASM OF [place] COMPARISON: [id number] TECHNIQUE: Standard craniocaudal and mediolateral oblique views of each breast recorded using digita l acquisition and breast tomosynthesis. LIMITATIONS: None. FINDINGS: Findings present which are benign by mammographic criteria. No suspicious masses, calcific ations or architectural distortion. Pertinent benign findings: Vascular calcifications. Read with the assistance of CAD. .[facility] - R2 Cenova Version 1.3 .[facility] - R2 Cenova Version 2.1 .[facility] - R2 Cenova Version 2.4 .[facility] - R2 Cenova Version 2.4 .[facility]S [facility] 234 BEDS AT THE [facility] - R2 Barbed Wire Machine Operator Version 9.2 Benign mammographic findings may include one or more of the following: Smooth masses, popcorn/rim/coa rse calcifications, asymmetries, post-procedure changes, and lesions with long-standing stability. IMPRESSION: BENIGN MAMMOGRAPHIC FINDINGS. BIRADS 2 BREAST DENSITY: b. There are scattered areas of fibroglandular density. BIRAD: 2 BENIGN FINDING(S) RECOMMENDATION: ROUTINE SCREENING COMMENT: The patient has been notified of the results by letter per MQSA requirements. Additional no tification policies are in place for contacting patient with suspicious or incomplete findings. Quality ID #[id number]: The [employer] recommends an annual screening mammogram for women aged 40 years or over. This facility utilizes a reminder system to ensure that all patients receive reminder letters, and/or direct phone calls for appointments. This includes reminders for routine scr eening mammograms, diagnostic mammograms, or other Breast Imaging Interventions when appropriate. Th is patient will be placed in the appropriate reminder system. The [employer] (ACR) has developed recommendations for screening MRI of the breast s in certain patient populations, to be used in conjunction with mammography. Breast MRI surveillanc e may be appropriate for women with more than 20% lifetime risk of developing breast cancer as deter mined by genetic testing, significant family history of the disease, or history of mantle radiation f or Hodgkins Disease. ACR Practice Guidelines 2008. DBT Technology DBT is a type of tomographic mammography. With conventional mammography, overlapping breast tissue ma y make lesions difficult to detect, even with good compression. DBT uses an x-ray tube that rotates a round the breast, taking images at different angles. These images are then combined to create thin sl ices of the breast that the radiologist can view as a 3D reconstruction. The Hologic unit can perform full-field digital mammograms (2D imaging); or DBT (3D imaging); or both, in a combination mode that quickly performs both the mammogram and the tomosynthesis scan while the breast is still compressed. PQRS 6045F: Fluoroscopic imaging is not utilized for breast tomosynthesis. TECHNICAL DOCUMENTATION: FINDING NUMBER: (1) ASSESSMENT: (1) JOB ID: [id number] [employer]- All Rights Reserved Reading location - IP/workstation name: [email or web address]
== END ==
LOC: WI 09:38
PROVIDERS: ATTEND Family Medicine
DX: Z12.31 Encounter for screening mammogram for malignant neoplasm of breast (principal)
CPT/HCPCS: 77063; 77067

== ENCOUNTER → 2018-07-26 | Outpatient (CLI) | payer MEDICARE, BC, OTHER ==
--- NOTE | 2018-07-26 14:48 | RADIOLOGY REPORT (SQ) ---
EXAM DESCRIPTION: HIP LEFT AP/LATERAL COMPLETED DATE/TIME: 07/26/2018 12:21 pm REASON FOR STUDY: LEFT HIP PAIN M15.0 PRIMARY GENERALIZED (OSTEO)ARTHRITIS M25.552 PAIN IN LEFT HI P COMPARISON: None. NUMBER OF VIEWS: Two views. TECHNIQUE: AP pelvis and additional frog-leg view of the left hip. LIMITATIONS: None. FINDINGS: MINERALIZATION: Normal. LEFT HIP: No fracture or dislocation. No worrisome bone lesions. RIGHT HIP: No fracture or dislocation. No worrisome bone lesions. PUBIS AND ISCHIUM: No fracture. PELVIS: No fracture. SACRUM: No fracture or dislocation. No worrisome bone lesions. LOWER LUMBAR SPINE: Lower lumbar degenerative changes. SOFT TISSUES: No findings. OTHER: No other significant finding. IMPRESSION: Lower lumbar degenerative changes. Normal hip. TECHNICAL DOCUMENTATION: JOB ID: [id number] [employer]- All Rights Reserved Reading location - IP/workstation name: [email or web address]
== END ==
LOC: OD 12:05
PROVIDERS: ATTEND Family Medicine
DX: M15.0 Primary generalized (osteo)arthritis (principal); M25.552 Pain in left hip

== ENCOUNTER → 2018-10-05 | Outpatient (CLI) | payer MEDICARE, BC ==
--- NOTE | 2018-10-05 12:42 | RADIOLOGY REPORT (SQ) ---
EXAM DESCRIPTION: U/S ABDOMEN LIMITED W/O DOP COMPLETED DATE/TIME: 10/05/2018 9:09 am REASON FOR STUDY: CHRONIC VIRAL HEPATITIS B WITHOUT DELTA-AGENT/CIRRHOSIS OF THE LIVER K74.69 OTHER CIRRHOSIS OF LIVER B18.1 CHRONIC VIRAL HEPATITIS B WITHOUT DELTA-AGENT COMPARISON: Abdominal ultrasound 11/10/2017 CT abdomen pelvis 01/24/2017 TECHNIQUE: Dynamic and static grayscale images acquired of the abdomen and recorded on PACS. Additio nal selected color Doppler and spectral images recorded. LIMITATIONS: None. FINDINGS: PANCREAS: Midline pancreas unremarkable LIVER: No masses. Echotexture normal. LIVER VASCULATURE: Normal directional flow of the main portal vein and hepatic veins. GALLBLADDER: Contracted, no stones, gallbladder wall thickening or pericholecystic fluid. ULTRASOUND-DETECTED MORGAN'S SIGN: Negative. INTRAHEPATIC DUCTS AND COMMON DUCT: CBD and intrahepatic ducts normal caliber. No filling defects. D istal most common duct not well seen due to duodenum gas. INFERIOR VENA CAVA: Normal flow. AORTA: No aneurysm. RIGHT KIDNEY: Normal size. Normal echogenicity. No solid or suspicious masses. No hydronephrosis. R ight lower pole intrarenal nonobstructive 6 mm stone. PERITONEAL AND RIGHT PLEURAL SPACE: No ascites or effusions. OTHER: No other significant findings. IMPRESSION: NORMAL RIGHT UPPER QUADRANT ULTRASOUND. TECHNICAL DOCUMENTATION: JOB ID: [id number] [employer]- All Rights Reserved Reading location - IP/workstation name: [email or web address]
== END ==
LOC: RAD 07:43
PROVIDERS: ATTEND Internal Medicine Gastroenterology
DX: K74.69 Other cirrhosis of liver (principal); B18.1 Chronic viral hepatitis B without delta-agent
CPT/HCPCS: 76705

== ENCOUNTER → 2018-11-19 | Outpatient (CLI) | payer MEDICARE, BC ==
--- NOTE | 2018-11-19 14:14 | RADIOLOGY REPORT (SQ) ---
EXAM DESCRIPTION: MRI LUMBAR SPINE WITHOUT COMPLETED DATE/TIME: 11/19/2018 10:57 am REASON FOR STUDY: BACK PAIN WITH RADICULOPATHY M54.10 RADICULOPATHY, SITE UNSPECIFIED COMPARISON: None. TECHNIQUE: Sagittal and Axial imaging includes T1, T2, STIR and gradient echo sequences. Coronal T2/ HASTE imaging. LIMITATIONS: None. FINDINGS: VISUALIZED UPPER ABDOMEN: Limited evaluation. No acute or suspicious findings suggested. SEGMENTATION: No transitional anatomy. The lowest well-developed disc space is labeled L5-S1. ALIGNMENT: Anatomic. VERTEBRAE: Intact. BONE MARROW: Reactive marrow changes are seen at L4-5. DISC SIGNAL: There is marked narrowing of the L4-5 disc with decreased signal intensity. POSTERIOR ELEMENTS: Facet hypertrophy at L3-4 and L4-5. HARDWARE: None in the spine. CORD AND CONUS: Normal in size and signal intensity. Conus at the T12-L1 level. SOFT TISSUES: No aortic aneurysm seen. No bulky retroperitoneal adenopathy or mass. No paraspinal mas s or fluid. L1-L2: No significant spinal stenosis or exit foraminal stenosis. L2-L3: No significant spinal stenosis or exit foraminal stenosis. L3-L4: Hypertrophic facet changes are seen. This indents the thecal sac on the right side and mildly displaces the traversing nerve medially. See image 17 series 3. L4-L5: Concentric disc bulging, may contact the exiting nerve root on each side outside of the neural foramen. Facet and ligament hypertrophy. This indents the thecal sac on the left side and slightly displaces the traversing nerve roots. L5-S1: No significant spinal stenosis or exit foraminal stenosis. LOWER THORACIC: Incompletely imaged. No stenosis seen. SACRUM: Visualized upper sacrum intact. OTHER: No other significant findings. IMPRESSION: 1. There is facet hypertrophy at L3-4 that indents the thecal sac on the right and disp laces the traversing nerve root. There is facet hypertrophy at L4-5 that indents the thecal sac on t he left and slightly displaces the traversing nerve roots. 2. There is concentric disc bulging at L4-5 that appears to contact the exiting nerve root on each s jimenez outside of the neural foramen. TECHNICAL DOCUMENTATION: JOB ID: [id number] [employer]- All Rights Reserved Reading location - IP/workstation name: [email or web address]
== END ==
LOC: RAD 10:00
PROVIDERS: ATTEND Family Medicine
DX: M51.16 Intervertebral disc disorders with radiculopathy, lumbar region (principal)
CPT/HCPCS: 72148

== ENCOUNTER → 2019-08-06 | Outpatient (CLI) | payer MEDICARE, BC, OTHER ==
[2019-08-06 09:34] LABS: HEMATOCRIT 39.7 % (36.0-47.0); HEMOGLOBIN 13.7 g/dL (12.0-15.5); MEAN CORPUSCULAR HGB CONC 34.5 g/dL (32.0-36.0); MEAN CORPUSCULAR VOLUME 87 fl (80-97); PLATELET COUNT 113 10^3/uL (150-450); RED BLOOD COUNT 4.58 10^6/uL (3.72-5.28); RED CELL DISTRIBUTION WIDTH 16.4 % (11.5-14.0); WHITE BLOOD COUNT 4.9 10^3/uL (4.0-10.5)
[2019-08-06 09:58] LABS: ALBUMIN 4.1 g/dL (3.5-5.0); ALKALINE PHOSPHATASE 86 U/L (38-126); ANION GAP 9 (5-19); ASPARTATE AMINO TRANSFERASE 47 U/L (14-36); BILIRUBIN,TOTAL 1.2 mg/dL (0.2-1.3); BLOOD UREA NITROGEN 11 mg/dL (7-20); CALCIUM 10.4 mg/dL (8.4-10.2); CARBON DIOXIDE 22 mmol/L (22-30); CHLORIDE 108 mmol/L (98-107); GLUCOSE 116 mg/dL (75-110); POTASSIUM 3.9 mmol/L (3.6-5.0); TOTAL PROTEIN 7.7 g/dL (6.3-8.2)
== END ==
LOC: OD 08:44
PROVIDERS: ATTEND Internal Medicine Gastroenterology
DX: R10.9 Unspecified abdominal pain (principal)
CPT/HCPCS: 36415; 80048; 80076; 83690; 85027

== ENCOUNTER → 2019-08-21 | Outpatient (CLI) | payer MEDICARE, BC ==
--- NOTE | 2019-08-21 11:06 | RADIOLOGY REPORT (SQ) ---
EXAM DESCRIPTION: U/S ABDOMEN LIMITED W/O DOP IMAGES COMPLETED DATE/TIME: 08/21/2019 9:07 am REASON FOR STUDY: CIRRHOSIS, NON-ALCOHOL (K74.69) K74.69 OTHER CIRRHOSIS OF LIVER COMPARISON: Ultrasound of the abdomen from 10/05/2018. TECHNIQUE: Dynamic and static grayscale images acquired of the abdomen and recorded on PACS. Additio nal selected color Doppler and spectral images recorded. LIMITATIONS: None. FINDINGS: PANCREAS: The visualized portions of the pancreas appear normal. LIVER: Heterogeneous echotexture of the hepatic parenchyma. LIVER VASCULATURE: Hepatopetal directional flow within the portal veins. The hepatic veins are paten t. GALLBLADDER: The gallbladder wall measures 1.2 mm in thickness. There is no cholelithiasis, sludge o r pericholecystic fluid ULTRASOUND-DETECTED MORGAN'S SIGN: Negative. INTRAHEPATIC DUCTS AND COMMON DUCT: The common bile duct measures 8.6 mm in diameter. There is no di latation of the intrahepatic bile ducts. INFERIOR VENA CAVA: Patent. AORTA: No aneurysm. RIGHT KIDNEY: The right kidney measures 7.3 cm in length. There is no hydronephrosis. PERITONEAL AND RIGHT PLEURAL SPACE: No ascites or effusions. OTHER: No other findings. IMPRESSION: 1. No acute abnormality of the right upper quadrant. 2. Heterogeneous echotexture of the hepatic parenchyma. 3. Other findings as detailed above. TECHNICAL DOCUMENTATION: JOB ID: [id number] 2010 [email or web address]- All Rights Reserved Reading location - IP/workstation name: [email or web address]
== END ==
LOC: RAD 08:07
PROVIDERS: ATTEND Internal Medicine Gastroenterology
DX: K74.69 Other cirrhosis of liver (principal)
CPT/HCPCS: 76705

== ENCOUNTER → 2019-09-12 | Outpatient (CLI) | payer MEDICARE, BC ==
--- NOTE | 2019-09-12 12:59 | WOMENS IMAGING REPORT ---
EXAM DESCRIPTION: 3D SCREENING MAMMO BILAT IMAGES COMPLETED DATE/TIME: 09/12/2019 11:12 am REASON FOR STUDY: Z12.31 SCREENING MAMMO Z12.31 ENCNTR SCREEN MAMMOGRAM FOR MALIGNANT NEOPLASM OF B RE COMPARISON: 2016 to 2018 EXAM PARAMETERS: Views: Standard craniocaudal and mediolateral oblique views of each breast recorded using digital acquisition and breast tomosynthesis. Read with the assistance of CAD. .[facility] - R2 Mouthpiece Maker Version 9.2 LIMITATIONS: None. FINDINGS: No suspicious masses, suspicious calcifications or architectural distortion. No areas of c oncern. IMPRESSION: NEGATIVE MAMMOGRAM. BIRADS 1. BREAST DENSITY: b. There are scattered areas of fibroglandular density. BIRAD: ASSESSMENT: 1 NEGATIVE RECOMMENDATION: ROUTINE SCREENING COMMENT: The patient has been notified of the results by letter per MQSA requirements. Additional no tification policies are in place for contacting patient with suspicious or incomplete findings. Quality ID #225: The [employer] recommends an annual screening mammogram for women aged 40 years or over. This facility utilizes a reminder system to ensure that all patients receive reminder letters, and/or direct phone calls for appointments. This includes reminders for routine scr eening mammograms, diagnostic mammograms, or other Breast Imaging Interventions when appropriate. Th is patient will be placed in the appropriate reminder system. TECHNICAL DOCUMENTATION: FINDING NUMBER: (1) ASSESSMENT: (1) JOB ID: [id number] 2010 [employer])- All Rights Reserved Reading location - IP/workstation name: [email or web address]
== END ==
LOC: WI 10:30
PROVIDERS: ATTEND Family Medicine
DX: Z12.31 Encounter for screening mammogram for malignant neoplasm of breast (principal)
CPT/HCPCS: 77063; 77067

== ENCOUNTER 2020-03-05 04:43 | Inpatient (IN) | payer MEDICARE, BC ==
[2020-03-05 05:16] LABS: HEMATOCRIT 35.5 % (36.0-47.0); HEMOGLOBIN 11.8 g/dL (12.0-15.5); MEAN CORPUSCULAR HEMOGLOBIN 26.4 pg (27.0-33.4); MEAN CORPUSCULAR HGB CONC 33.3 g/dL (32.0-36.0); MEAN CORPUSCULAR VOLUME 80 fl (80-97); RED BLOOD COUNT 4.47 10^6/uL (3.72-5.28); RED CELL DISTRIBUTION WIDTH 17.9 % (11.5-14.0); WHITE BLOOD COUNT 5.8 10^3/uL (4.0-10.5)
[2020-03-05 05:35] LABS: ALBUMIN 3.6 g/dL (3.5-5.0); ALCOHOL < 10 mg/dL (NONE DETECTED); ALKALINE PHOSPHATASE 88 U/L (38-126); ANION GAP 9 (5-19); ASPARTATE AMINO TRANSFERASE 49 U/L (14-36); BILIRUBIN,DIRECT 0.4 mg/dL (0.0-0.4); BILIRUBIN,TOTAL 1.7 mg/dL (0.2-1.3); BLOOD UREA NITROGEN 16 mg/dL (7-20); CALCIUM 9.9 mg/dL (8.4-10.2); CARBON DIOXIDE 21 mmol/L (22-30); CHLORIDE 112 mmol/L (98-107); GLUCOSE 114 mg/dL (75-110); POTASSIUM 4.7 mmol/L (3.6-5.0); TOTAL PROTEIN 6.7 g/dL (6.3-8.2)
[2020-03-05 05:36] LABS: PLATELET COUNT 83 10^3/uL (150-450)
[2020-03-05 05:44] LABS: ABSOLUTE LYMPHOCYTES# (MANUAL) 1.5 10^3/uL (0.5-4.7); ABSOLUTE MONOCYTES # (MANUAL) 0.6 10^3/uL (0.1-1.4); BASOPHILS % (MANUAL) 0 % (0-2); EOSINOPHILS % (MANUAL) 1 % (0-6); LYMPHOCYTES % (MANUAL) 24 % (13-45); MONOCYTES % (MANUAL) 11 % (3-13); NUCLEATED RED BLOOD CELLS 4 /100 WBC (0); SEGMENTED NEUTROPHILS % (MAN) 63 % (42-78); TOTAL CELLS COUNTED 100
[2020-03-05 05:46] LABS: ANISOCYTOSIS 1+; HYPOCHROMASIA SLIGHT; POIKILOCYTOSIS SLIGHT; POLYCHROMASIA 1+
[2020-03-05 05:47] LABS: PLATELET COMMENT DECREASED; TARGET CELLS 1+; TEAR DROP CELLS 1+
[2020-03-05] MEDS ORDERED: LACTULOSE SYRUP 20 GM/30 ML UDCUP PO ONE ×3 (06:12→07:23)
--- NOTE | 2020-03-05 06:57 | ER Document Report ---
Entered by ITALO EDWARDS SCRIBE 03/05/20 0616 Acting as scribe for:DIMITRI MCDANIELS MD ED General - General Chief Complaint: Altered Mental Status Stated Complaint: ALTERED MENTAL STATUS Time Seen by Provider: 03/05/20 06:09 Primary Care Provider: MCKAYLA AGUAYO MD [Primary Care Provider] - Follow up as needed Mode of Arrival: Medic Information source: Emergency Med Personnel Cannot obtain history due to: Altered mental status Notes: This 79 year old female patient with a history of dementia, hypertension, hyper lipidemia, parkinson's disease, hepatitis C, and hepatic encephalopathy presents to the ED today for evaluation of altered mental status. According to nursing, the patient's son reportedly told EMS that when the patient gets like this, it's related to her ammonia level. HPI is limited and ROS are unobtainable due to the patient's medical condition. PMHx is obtained from prior medical records. TRAVEL OUTSIDE OF THE [place] IN LAST 30 DAYS: No - Related Data Allergies/Adverse Reactions: divalproex sodium [From Depakote] Adverse Reaction (Intermediate, Verified 05/15/18 08:14) BEE STING Adverse Reaction (Severe, Uncoded 05/15/18 08:14) Past Medical History - General Information source[facility] Records Cannot obtain history due to: Altered mental status - Social History Smoking Status: Former Smoker Cigarette use (# per day): No Chew tobacco use (# tins/day): No Smoking Education Provided: No Frequency of alcohol use: None Drug Abuse: None Lives with: Family Family History: Reviewed & Not Pertinent - Past Medical History Cardiac Medical History: Reports: Hx Hypercholesterolemia, Hx Hypertension Neurological Medical History: Reports: Hx Migraine, Hx Parkinson's Disease GI Medical History: Reports: Hx Cirrhosis, Hx Gastroesophageal Reflux Disease, Hx Hepatitis, Hx Liver Failure - Hepatic Encephalopathy Musculoskeletal Medical History: Reports Hx Arthritis Psychiatric Medical History: Reports: Hx Dementia, Hx Depression Infectious Medical History: Reports: Hx Hepatitis Past Surgical History: Reports: Hx Section, Hx Tubal Ligation - Immunizations Immunizations up to date: Yes Hx Diphtheria, Pertussis, Tetanus Vaccination: Yes Hx Pneumococcal Vaccination: 03/10/10 Review of Systems - Review of Systems -: Yes ROS unobtainable due to patient's medical condition - Altered mental status Physical Exam - Vital signs Vitals: Resp 41 H 03/05/20 04:46 - General General appearance: Alert - to self, arousable In distress: None - HEENT Head: Normocephalic, Atraumatic Eyes: Normal Pupils: PERRL Neck: Normal, Supple - Respiratory Respiratory status: No respiratory distress Chest status: Nontender Breath sounds: Normal Chest palpation: Normal - Cardiovascular Rhythm: Regular Heart sounds: Normal auscultation Murmur: No Friction rub: No Gallop: None auscultated - Abdominal Inspection: Normal Distension: No distension Bowel sounds: Normal Tenderness: Nontender - Abdomen soft Organomegaly: No organomegaly - Back Back: Normal, Nontender - Extremities General upper extremity: Normal inspection General lower extremity: Normal inspection. No: Edema - Neurological Cognition: Confused - demented - Psychological Associated symptoms: Other - Unable to assess due to patient's altered mental status - Skin Skin Temperature: Warm Skin Moisture: Dry Skin Color: Normal. negative: Jaundiced Course - Re-evaluation Re-evalutation: 03/05/20 08:08 Patient is more alert at this time and states that she feels better. 03/05/20 10:41 The first ammonia level was 67.8, she received 60 mg of lactulose and has had a large bowel movement. Repeat ammonia level is 52.2 - Vital Signs Vital signs: Temp Pulse Resp BP Pulse Ox 98.4 F 22 H 135/69 H 99 03/05/20 07:01 03/05/20 08:01 03/05/20 08:01 03/05/20 08:01 - Laboratory Result Diagrams: 03/05/20 03:50 03/05/20 03:50 Laboratory results interpreted by me: 03/05/20 03/05/20 03/05/20 03:50 03:50 03:50 Hgb 11.8 L Hct 35.5 L MCH 26.4 L RDW 17.9 H Plt Count 83 L Chloride 112 H Carbon Dioxide 21 L Glucose 114 H Lactic Acid 4.7 H Total Bilirubin 1.7 H AST 49 H Ammonia Urine Protein Urine Blood Urine Urobilinogen Ur Leukocyte Esterase 03/05/20 03/05/20 03/05/20 03:50 06:45 09:48 Hgb Hct MCH RDW Plt Count Chloride Carbon Dioxide Glucose Lactic Acid 3.8 H Total Bilirubin AST Ammonia 67.8 H Urine Protein 30 H Urine Blood SMALL H Urine Urobilinogen 2.0 H Ur Leukocyte Esterase TRACE H 03/05/20 09:48 Hgb Hct MCH RDW Plt Count Chloride Carbon Dioxide Glucose Lactic Acid Total Bilirubin AST Ammonia 52.2 H Urine Protein Urine Blood Urine Urobilinogen Ur Leukocyte Esterase - EKG Interpretation by Me EKG shows normal: Sinus rhythm, [place], Intervals, QRS Complexes, ST-T Waves Rate: Tachycardia - 110 Rhythm: APC's Voltage: Consistent with LVH When compared to previous EKG there are: No significant change - Consults Dr. Vega Time consulted: 10:39 Consulted provider: will see as inpatient Discharge - Discharge Clinical Impression: Acute hepatic encephalopathy, Hyperammonemia, Tachycardia, Elevated lactic acid level Altered mental status Qualifiers: Altered mental status type: unspecified Qualified Code(s): R41.82 - Altered mental status, unspecified Condition: Stable Disposition: ADMITTED INPATIENT Admitting Provider: Vic Vega covering Unit Admitted: Medical Floor Referrals: MCKAYLA AGUAYO MD [Primary Care Provider] - Follow up as needed I personally performed the services described in the documentation, reviewed and edited the documentation which was dictated to the scribe in my presence, and it accurately records my words and actions.
[2020-03-05 07:09] LABS: APPEARANCE,URINE CLEAR; BILIRUBIN,URINE NEGATIVE (NEGATIVE); COLOR,URINE YELLOW; GLUCOSE, URINE NEGATIVE (NEGATIVE); KETONES,URINE NEGATIVE (NEGATIVE); LEUKOCYTE ESTERASE,URINE TRACE (NEGATIVE); NITRITE,URINE NEGATIVE (NEGATIVE); PROTEIN,URINE 30 mg/dL (NEGATIVE); URINE SPECIFIC GRAVITY 1.012
[2020-03-05 07:31] LABS: URINE AMPHETAMINES SCREEN NEGATIVE; URINE BENZODIAZEPINES SCREEN NEGATIVE; URINE COCAINE SCREEN NEGATIVE; URINE MARIJUANA (THC) SCREEN NEGATIVE; URINE METHADONE SCREEN NEGATIVE; URINE PHENCYCLIDINE SCREEN NEGATIVE
[2020-03-05 07:32] LABS: URINE BARBITURATES SCREEN UNCONFIRMED POSITIVE
[2020-03-05] MEDS ORDERED: RINGERS SOLUTION,LACTATED 1,000 ML IV ONE (08:21)
--- NOTE | 2020-03-05 09:16 | EKG REPORT ---
SEVERITY:- ABNORMAL ECG - PAC SINUS TACHYCARDIA CONSIDER LEFT VENTRICULAR HYPERTROPHY EARLY PRECORDIAL TRANSITION, NEED TO CONSIDER OLD TRUE POSTERIOR PA. NONSPECIFIC ST-T CHANGES- LATERAL LEADS . : Confirmed by: Jean Claude Breaux MD 05-Mar-2020 09:15:47
[2020-03-05] MEDS ORDERED: ENTECAVIR 0.5 MG PO SCH (17:30)
[2020-03-05] MEDS: LEVOTHYROXINE SODIUM 0.025 MG TABLET PO SCH (17:43)
[2020-03-05] MEDS: SODIUM BICARBONATE 650 MG TABLET PO SCH (17:43)
[2020-03-05] MEDS: CARBIDOPA/LEVODOPA 10-100 MG TABLET PO SCH ×2 (17:44→21:21)
[2020-03-05] MEDS: RIFAXIMIN 550 MG TABLET PO SCH ×2 (17:44→21:21)
[2020-03-05] MEDS: EZETIMIBE 10 MG TABLET PO SCH (17:50)
[2020-03-05 18:20] LABS: INTERNATIONAL RATION (INR) 1.08; PROTHROMBIN TIME 14.2 SEC (11.4-15.4)
[2020-03-05 18:21] LABS: PARTIAL THROMBOPLASTIN TIME 27.5 SEC (23.5-35.8)
[2020-03-05 18:29] LABS: PHOSPHORUS 3.6 mg/dL (2.5-4.5)
[2020-03-05] MEDS: LACTULOSE SYRUP 20 GM/30 ML UDCUP PO SCH (18:35)
[2020-03-05] MEDS ORDERED: RIFAXIMIN 550 MG TABLET ONE (18:51)
[2020-03-05 18:52] LABS: FREE T4 (FREE THYROXINE) 1.43 ng/dL (0.78-2.19)
[2020-03-05] MEDS ORDERED: CARBIDOPA/LEVODOPA 10-100 MG TABLET ONE (18:52)
--- NOTE | 2020-03-05 19:02 | RADIOLOGY REPORT (SQ) ---
EXAM DESCRIPTION: CT HEAD WITHOUT IMAGES COMPLETED DATE/TIME: 03/05/2020 6:48 pm REASON FOR STUDY: altered mental status COMPARISON: 2019 TECHNIQUE: Axial images acquired through the brain without intravenous contrast. Images reviewed wi th bone, brain and subdural windows. Additional sagittal and coronal reconstructions were generated. Images stored on PACS. All CT scanners at this facility use dose modulation, iterative reconstruction, and/or weight based d osing when appropriate to reduce radiation dose to as low as reasonably achievable (ALARA). [facility]: Dose Right [facility]: CareDose [facility]: Dose Right [facility]: Teradose 4D [facility]: Smart Weiju RADIATION DOSE: CT Rad equipment meets quality standard of care and radiation dose reduction techniq ues were employed. CTDIvol: 53.2 mGy. DLP: 1795 mGy-cm. mGy. LIMITATIONS: None. FINDINGS: VENTRICLES: Prominent. CEREBRUM: No masses. No hemorrhage. No midline shift. Areas of low density in the white matter mos t likely due to chronic micro-vascular ischemic change. No evidence for acute infarction. CEREBELLUM: No masses. No hemorrhage. No alteration of density. No evidence for acute infarction. EXTRAAXIAL SPACES: Mild age-related involutional change. No fluid collections. No masses. ORBITS AND GLOBE: No intra- or extraconal masses. Normal contour of globe without masses. CALVARIUM: No fracture. PARANASAL SINUSES: No fluid or mucosal thickening. SOFT TISSUES: No mass or hematoma. OTHER: No other significant finding. IMPRESSION: MILD CHRONIC CHANGES OF ATROPHY AND MICROVASCULAR ISCHEMIA. NO ACUTE PROCESS. EVIDENCE OF ACUTE STROKE: NO. TECHNICAL DOCUMENTATION: JOB ID: [id number] Quality ID # [id number]: Final reports with documentation of one or more dose reduction techniques (e.g., Au tomated exposure control, adjustment of the mA and/or kV according to patient size, use of iterative reconstruction technique) 2010 [employer]- All Rights Reserved Reading location - IP/workstation name: [email or web address]
[2020-03-05 19:06] LABS: THYROID STIMULATING HORMONE 5.14 uIU/mL (0.47-4.68)
--- NOTE | 2020-03-05 19:24 | PDOC H&P ---
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 The son reportedly told EMS that when patient gets this way it is usually related to the blood ammonia level. History taking was challenging patient does not respond appropriately she is alert but not communicating. I called the son directly to talk to him but could not reach him, the RN nurse spoke to him specifically about CODE STATUS, he stated she is a full code. He also said she had respiratory symptoms for the last few days shortness of breath and cough because of this history a rapid Covid test was obtained which was negative.CT head was obtained was negative, serum ammonia level was elevated Past Medical History Cardiac Medical History: Reports: Hyperlipidema, Hypertension Neurological Medical History: Reports: Migraine, Other - Parkinson disease GI Medical History: Reports: Cirrhosis, Gastroesophageal Reflux Disease, Hepatitis, Other - Hepatitis B liver cirrhosis on maintenance therapy with entecavir Musculoskeltal Medical History: Reports: Arthritis Psychiatric Medical History: Reports: Dementia, Depression Hematology: Reports: Anemia Past Surgical History Past Surgical History: Reports: Section, Tubal Ligation Denies: Hysterectomy, Pacemaker Social History Lives with: Family Smoking Status: Unknown if Ever Smoked Electronic Cigarette use?: No Frequency of Alcohol Use: None Hx Recreational Drug Use: No Drugs: None Hx Prescription Drug Abuse: No Family History Family History: Reviewed & Not Pertinent Parental Family History Reviewed: Yes Children Family History Reviewed: Yes Sibling(s) Family History Reviewed.: Yes Medication/Allergy Home Medications: Amlodipine Besylate [Norvasc 2.5 mg Tablet] 5 mg PO Q12 11/30/17 Clonidine HCl [Catapres 0.2 mg Tablet] 0.2 mg PO QHS 11/30/17 Entecavir [Baraclude] 0.5 mg PO DAILY 11/30/17 Ergocalciferol (Vitamin D2) [Drisdol 50,000 unit (1.25MG) Capsule] 50,000 unit PO MO@1000 11/30/17 Ezetimibe [Zetia 10 mg Tablet] 10 mg PO DAILY 11/30/17 Lactulose [Constulose 10 gm/15 mL Oral Solution] 60 ml PO Q6 11/30/17 Omeprazole 20 mg PO Q6AM 11/30/17 Potassium Chloride [Klor-Con 10 Meq Tablet ER] 10 meq PO Q12 11/30/17 Rifaximin [Xifaxan 550 mg Tablet] 550 mg PO Q12 11/30/17 Butalb/Acetaminophen/Caffeine [Fxfodl-Eykpxraa-Cpet 50-325-40] 1 tab PO ASDIR PRN 03/05/20 Carbidopa/Levodopa [Carbidopa-Levodopa 10-100 Tab] 1 tab PO Q8 03/05/20 Levothyroxine Sodium [Synthroid 0.025 mg Tablet] 0.025 mg PO Q6AM 03/05/20 Sodium Bicarbonate [Sodium Bicarbonate 650 mg Tablet] 650 mg PO QPM 03/05/20 Allergies/Adverse Reactions: divalproex sodium [From Depakote] Adverse Reaction (Intermediate, Verified 05/15/18 08:14) BEE STING Adverse Reaction (Severe, Uncoded 05/15/18 08:14) Review of Systems ROS unobtainable: Due to mental status Physical Exam Vital Signs: Temp Pulse Resp BP Pulse Ox 98.4 F 114 H 19 159/88 H 97 03/05/20 14:31 03/05/20 14:31 03/05/20 14:31 03/05/20 14:31 03/05/20 14:31 Intake & Output 03/04/20 03/05/20 03/06/20 06:59 06:59 06:59 Intake Total 1000 Output Total 350 Balance 650 Weight 68.039 kg 53.6 kg General appearance: PRESENT: no acute distress Eye exam: PRESENT: PERRLA Respiratory exam: PRESENT: clear to auscultation karma Cardiovascular exam: PRESENT: +S1, +S2 GI/Abdominal exam: PRESENT: soft Neurological exam: PRESENT: alert Results Laboratory Results: 03/05/20 03:50 03/05/20 03:50 03/05/20 03/05/20 03/05/20 03:50 03:50 03:50 WBC 5.8 RBC 4.47 Hgb 11.8 L Hct 35.5 L MCV 80 MCH 26.4 L MCHC 33.3 RDW 17.9 H Plt Count 83 L Seg Neutrophils % Not Reportable Sodium 141.9 Potassium 4.7 Chloride 112 H Carbon Dioxide 21 L Anion Gap 9 BUN 16 Creatinine 0.86 Est GFR ( Amer) > 60 Glucose 114 H Lactic Acid 4.7 H Calcium 9.9 Phosphorus Magnesium 1.9 Total Bilirubin 1.7 H AST 49 H Alkaline Phosphatase 88 Ammonia Total Protein 6.7 Albumin 3.6 Amylase Lipase TSH Free T4 Urine Color Urine Appearance Urine pH Ur Specific Presto Urine Protein Urine Glucose (UA) Urine Ketones Urine Blood Urine Nitrite Ur Leukocyte Esterase Urine WBC (Auto) Urine RBC (Auto) 03/05/20 03/05/20 03/05/20 03:50 06:45 09:48 WBC RBC Hgb Hct MCV MCH MCHC RDW Plt Count Seg Neutrophils % Sodium Potassium Chloride Carbon Dioxide Anion Gap BUN Creatinine Est GFR ( Amer) Glucose Lactic Acid 3.8 H Calcium Phosphorus Magnesium Total Bilirubin AST Alkaline Phosphatase Ammonia 67.8 H Total Protein Albumin Amylase Lipase TSH Free T4 Urine Color YELLOW Urine Appearance CLEAR Urine pH 7.0 Ur Specific Presto 1.012 Urine Protein 30 H Urine Glucose (UA) NEGATIVE Urine Ketones NEGATIVE Urine Blood SMALL H Urine Nitrite NEGATIVE Ur Leukocyte Esterase TRACE H Urine WBC (Auto) 5 Urine RBC (Auto) 7 03/05/20 03/05/20 03/05/20 09:48 18:03 18:03 WBC RBC Hgb Hct MCV MCH MCHC RDW Plt Count Seg Neutrophils % Sodium Potassium Chloride Carbon Dioxide Anion Gap BUN Creatinine Est GFR ( Amer) Glucose Lactic Acid Calcium Phosphorus 3.6 Magnesium 2.0 Total Bilirubin AST Alkaline Phosphatase Ammonia 52.2 H Total Protein Albumin Amylase 99 Lipase 80.4 TSH 5.14 H Free T4 1.43 Urine Color Urine Appearance Urine pH Ur Specific Presto Urine Protein Urine Glucose (UA) Urine Ketones Urine Blood Urine Nitrite Ur Leukocyte Esterase Urine WBC (Auto) Urine RBC (Auto) 03/05/20 03/05/20 18:03 18:03 Creatine Kinase 301 H CK-MB (CK-2) 2.88 Impressions: Head CT 03/05/20 00:00 IMPRESSION: MILD CHRONIC CHANGES OF ATROPHY AND MICROVASCULAR ISCHEMIA. NO ACU TE PROCESS. EVIDENCE OF ACUTE STROKE: NO. Assessment & Plan - Diagnosis (1) Acute hepatic encephalopathy Is this a current diagnosis for this admission?: Yes Plan: She has liver cirrhosis due to chronic Hepatitis B infection, Complicated with acute encephalopathy patient already on rifaximin, lactulose continue lactulose, there is no apparent precipitating factor (2) Cirrhosis of liver due to hepatitis B Is this a current diagnosis for this admission?: Yes (3) Chronic hepatitis B without delta agent with cirrhosis Is this a current diagnosis for this admission?: Yes (4) Parkinson disease Is this a current diagnosis for this admission?: Yes Plan: She has Parkinson disease continue treatment - Time Time Spent: Greater than 70 Minutes Medications reviewed and adjusted accordingly: Yes Anticipated Discharge Disposition: Home, Self Care Anticipated Discharge Timeframe: within 72 hours - Inpatient Certification Based on my medical assessment, after consideration of the patient's com orbidities, presenting symptoms, or acuity I expect that the services needed warrant INPATIENT care.: Yes I certify that my determination is in accordance with my understanding of Medicare's requirements for reasonable and necessary INPATIENT services [42 CFR 412.3e].: Yes
[2020-03-05] MEDS ORDERED: CLONIDINE HCL 0.2 MG TABLET PO SCH (22:00)
[2020-03-06] MEDS: LACTULOSE SYRUP 20 GM/30 ML UDCUP PO SCH ×5 (00:03→23:39)
[2020-03-06] MEDS ORDERED: CARBIDOPA/LEVODOPA 10-100 MG TABLET ONE (05:39)
[2020-03-06] MEDS: LEVOTHYROXINE SODIUM 0.025 MG TABLET PO SCH (05:46)
[2020-03-06] MEDS: CARBIDOPA/LEVODOPA 10-100 MG TABLET PO SCH ×3 (05:46→23:44)
[2020-03-06 07:47] LABS: ALBUMIN 3.3 g/dL (3.5-5.0); ALKALINE PHOSPHATASE 77 U/L (38-126); ANION GAP 9 (5-19); ASPARTATE AMINO TRANSFERASE 56 U/L (14-36); BILIRUBIN,DIRECT 0.3 mg/dL (0.0-0.4); BILIRUBIN,TOTAL 2.1 mg/dL (0.2-1.3); BLOOD UREA NITROGEN 11 mg/dL (7-20); CALCIUM 9.8 mg/dL (8.4-10.2); CARBON DIOXIDE 22 mmol/L (22-30); CHLORIDE 111 mmol/L (98-107); CHOLESTEROL 188.61 mg/dL (0-200); CREATINE KINASE 411 U/L (30-135); GLUCOSE 99 mg/dL (75-110); POTASSIUM 3.9 mmol/L (3.6-5.0); TOTAL PROTEIN 6.5 g/dL (6.3-8.2); TRIGLYCERIDES 47 mg/dL (<150)
[2020-03-06 07:58] LABS: DIRECT LDL 57 mg/dL (<100)
[2020-03-06] MEDS: EZETIMIBE 10 MG TABLET PO SCH (12:51)
[2020-03-06] MEDS: RIFAXIMIN 550 MG TABLET PO SCH ×2 (12:51→23:43)
[2020-03-06 12:57] LABS: HEMATOCRIT 35.3 % (36.0-47.0); HEMOGLOBIN 11.7 g/dL (12.0-15.5); MEAN CORPUSCULAR HEMOGLOBIN 26.5 pg (27.0-33.4); MEAN CORPUSCULAR HGB CONC 33.2 g/dL (32.0-36.0); MEAN CORPUSCULAR VOLUME 80 fl (80-97); RED BLOOD COUNT 4.43 10^6/uL (3.72-5.28); RED CELL DISTRIBUTION WIDTH 17.7 % (11.5-14.0); WHITE BLOOD COUNT 4.5 10^3/uL (4.0-10.5)
[2020-03-06 12:59] LABS: PLATELET COUNT 83 10^3/uL (150-450)
[2020-03-06 13:01] LABS: ABSOLUTE LYMPHOCYTES# (MANUAL) 1.6 10^3/uL (0.5-4.7); ABSOLUTE MONOCYTES # (MANUAL) 0.6 10^3/uL (0.1-1.4); BASOPHILS % (MANUAL) 2 % (0-2); EOSINOPHILS % (MANUAL) 0 % (0-6); LYMPHOCYTES % (MANUAL) 29 % (13-45); MONOCYTES % (MANUAL) 13 % (3-13); SEGMENTED NEUTROPHILS % (MAN) 49 % (42-78); TOTAL CELLS COUNTED 100
[2020-03-06 13:04] LABS: ANISOCYTOSIS 1+; HYPOCHROMASIA SLIGHT; OVALOCYTES SLIGHT; PAPPENHEIMER BODIES PRESENT; POIKILOCYTOSIS 1+; POLYCHROMASIA 1+; TARGET CELLS 2+; TEAR DROP CELLS 1+
[2020-03-06 13:05] LABS: PLATELET COMMENT DECREASED; PLATELET LARGE PRESENT
--- NOTE | 2020-03-06 18:45 | PDOC PROGRESS REPORT ---
Subjective Date:: 03/06/20 Subjective:: Patient was admitted yesterday for the management of hepatic encephalopathy, she is more alert and oriented today, the blood pressure is elevated with associated tachycardia, she is on clonidine at bedtime, will increase to twice daily Reason For Visit: HEPATIC ENCEPHALOPATHY Physical Exam Vital Signs: Temp Pulse Resp BP Pulse Ox 97.5 F 127 H 19 153/87 H 100 03/06/20 13:00 03/06/20 13:00 03/06/20 13:00 03/06/20 13:00 03/06/20 13:00 Intake & Output 03/05/20 03/06/20 03/07/20 06:59 06:59 06:59 Intake Total 1000 120 Output Total 2225 800 Balance -1225 -680 Weight 68.039 kg 54.1 kg General appearance: PRESENT: no acute distress Eye exam: PRESENT: PERRLA Respiratory exam: PRESENT: clear to auscultation karma Cardiovascular exam: PRESENT: +S1, +S2 GI/Abdominal exam: PRESENT: soft Neurological exam: PRESENT: alert Results Laboratory Results: 03/06/20 11:29 03/06/20 06:56 03/05/20 03/06/20 03/06/20 18:03 06:56 06:56 WBC Cancelled RBC Cancelled Hgb Cancelled Hct Cancelled MCV Cancelled MCH Cancelled MCHC Cancelled RDW Cancelled Plt Count Cancelled Seg Neutrophils % Cancelled Sodium 142.1 Potassium 3.9 Chloride 111 H Carbon Dioxide 22 Anion Gap 9 BUN 11 Creatinine 0.70 Est GFR ( Amer) > 60 Glucose 99 Calcium 9.8 Total Bilirubin 2.1 H AST 56 H Alkaline Phosphatase 77 Ammonia Total Protein 6.5 Albumin 3.3 L Triglycerides 47 Cholesterol 188.61 LDL Cholesterol Direct 57 VLDL Cholesterol 9.0 L HDL Cholesterol 109 TSH 5.14 H Free T4 1.43 03/06/20 03/06/20 03/06/20 06:56 09:27 09:37 WBC Cancelled RBC Cancelled Hgb Cancelled Hct Cancelled MCV Cancelled MCH Cancelled MCHC Cancelled RDW Cancelled Plt Count Cancelled Seg Neutrophils % Cancelled Sodium Potassium Chloride Carbon Dioxide Anion Gap BUN Creatinine Est GFR ( Amer) Glucose Calcium Total Bilirubin AST Alkaline Phosphatase Ammonia Cancelled 18.2 Total Protein Albumin Triglycerides Cholesterol LDL Cholesterol Direct VLDL Cholesterol HDL Cholesterol TSH Free T4 03/06/20 11:29 WBC 4.5 RBC 4.43 Hgb 11.7 L Hct 35.3 L MCV 80 MCH 26.5 L MCHC 33.2 RDW 17.7 H Plt Count 83 L Seg Neutrophils % Not Reportable Sodium Potassium Chloride Carbon Dioxide Anion Gap BUN Creatinine Est GFR ( Amer) Glucose Calcium Total Bilirubin AST Alkaline Phosphatase Ammonia Total Protein Albumin Triglycerides Cholesterol LDL Cholesterol Direct VLDL Cholesterol HDL Cholesterol TSH Free T4 03/05/20 03/05/20 03/06/20 18:03 18:03 00:32 Creatine Kinase 301 H 346 H CK-MB (CK-2) 2.88 03/06/20 03/06/20 03/06/20 00:32 06:56 06:56 Creatine Kinase 411 H CK-MB (CK-2) 2.69 2.82 Impressions: Head CT 03/05/20 00:00 IMPRESSION: MILD CHRONIC CHANGES OF ATROPHY AND MICROVASCULAR ISCHEMIA. NO ACUTE PROCESS. EVIDENCE OF ACUTE STROKE: NO. Assessment & Plan - Diagnosis (1) Acute hepatic encephalopathy Is this a current diagnosis for this admission?: Yes Plan: Patient sensorium is improved, serum ammonia level normalized, continue lactu lose continue rifaximin (2) Cirrhosis of liver due to hepatitis B Is this a current diagnosis for this admission?: Yes Plan: Continue entecavir, antiviral agent for treatment of hepatitis B (3) Chronic hepatitis B without delta agent with cirrhosis Is this a current diagnosis for this admission?: Yes (4) Parkinson disease Is this a current diagnosis for this admission?: Yes - Time Time Spent with patient: 25-34 minutes Level of Care: IMCU Medications reviewed and adjusted accordingly: Yes Anticipated discharge: Home Anticipated DC Timeframe: Other
[2020-03-06] MEDS: Entecavir [Baraclude] 0.5 MG Tablet PO SCH (20:04)
[2020-03-06] MEDS: SODIUM BICARBONATE 650 MG TABLET PO SCH (20:05)
[2020-03-06] MEDS: CLONIDINE HCL 0.2 MG TABLET PO SCH (23:44)
[2020-03-07] MEDS: LACTULOSE SYRUP 20 GM/30 ML UDCUP PO SCH ×4 (06:10→23:07)
[2020-03-07] MEDS: LEVOTHYROXINE SODIUM 0.025 MG TABLET PO SCH (06:18)
[2020-03-07] MEDS: CARBIDOPA/LEVODOPA 10-100 MG TABLET PO SCH ×3 (06:19→21:23)
[2020-03-07 07:12] LABS: HEMATOCRIT 35.2 % (36.0-47.0); HEMOGLOBIN 11.8 g/dL (12.0-15.5); MEAN CORPUSCULAR HEMOGLOBIN 26.8 pg (27.0-33.4); MEAN CORPUSCULAR HGB CONC 33.5 g/dL (32.0-36.0); MEAN CORPUSCULAR VOLUME 80 fl (80-97); RED CELL DISTRIBUTION WIDTH 17.9 % (11.5-14.0); WHITE BLOOD COUNT 5.2 10^3/uL (4.0-10.5)
[2020-03-07 08:03] LABS: PLATELET COUNT 71 10^3/uL (150-450)
[2020-03-07 08:06] LABS: ABSOLUTE LYMPHOCYTES# (MANUAL) 1.9 10^3/uL (0.5-4.7); ABSOLUTE MONOCYTES # (MANUAL) 0.4 10^3/uL (0.1-1.4); BASOPHILS % (MANUAL) 1 % (0-2); EOSINOPHILS % (MANUAL) 4 % (0-6); LYMPHOCYTES % (MANUAL) 37 % (13-45); MONOCYTES % (MANUAL) 8 % (3-13); SEGMENTED NEUTROPHILS % (MAN) 50 % (42-78); TOTAL CELLS COUNTED 100
[2020-03-07 08:10] LABS: ANISOCYTOSIS 1+; HYPOCHROMASIA SLIGHT; PLATELET COMMENT DECREASED; TARGET CELLS 2+
[2020-03-07] MEDS: CLONIDINE HCL 0.2 MG TABLET PO SCH ×2 (11:21→21:23)
[2020-03-07] MEDS: RIFAXIMIN 550 MG TABLET PO SCH ×2 (11:22→21:23)
[2020-03-07] MEDS: EZETIMIBE 10 MG TABLET PO SCH (11:22)
[2020-03-07] MEDS: Entecavir [Baraclude] 0.5 MG Tablet PO SCH (11:22)
[2020-03-07] MEDS: SODIUM BICARBONATE 650 MG TABLET PO SCH (17:41)
--- NOTE | 2020-03-07 20:26 | PDOC PROGRESS REPORT ---
Subjective Date:: 03/07/20 Subjective:: Patient was admitted yesterday for the management of hepatic encephalopathy, she is more alert and oriented today, the blood pressure is elevated with associated tachycardia, she is on clonidine at bedtime, will increase to twice daily 03/07/2020 Patient is back to baseline, she continues to improve Reason For Visit: HEPATIC ENCEPHALOPATHY Physical Exam Vital Signs: Temp Pulse Resp BP Pulse Ox 98.2 F 85 16 102/60 98 03/07/20 15:28 03/07/20 15:28 03/07/20 15:28 03/07/20 15:28 03/07/20 15:28 Intake & Output 03/06/20 03/07/20 03/08/20 06:59 06:59 06:59 Intake Total 1000 240 240 Output Total 2225 3000 400 Balance -4450 -6955 -160 Weight 54.1 kg 54.1 kg General appearance: PRESENT: no acute distress Eye exam: PRESENT: PERRLA Respiratory exam: PRESENT: clear to auscultation karma Cardiovascular exam: PRESENT: +S1, +S2 GI/Abdominal exam: PRESENT: soft Neurological exam: PRESENT: alert Results Laboratory Results: 03/07/20 06:49 03/06/20 06:56 03/07/20 03/07/20 06:49 06:49 WBC 5.2 RBC 4.40 Hgb 11.8 L Hct 35.2 L MCV 80 MCH 26.8 L MCHC 33.5 RDW 17.9 H Plt Count 71 L Seg Neutrophils % Not Reportable Ammonia 15.0 03/05/20 03/05/20 03/06/20 18:03 18:03 00:32 Creatine Kinase 301 H 346 H CK-MB (CK-2) 2.88 03/06/20 03/06/20 03/06/20 00:32 06:56 06:56 Creatine Kinase 411 H CK-MB (CK-2) 2.69 2.82 Impressions: Head CT 03/05/20 00:00 IMPRESSION: MILD CHRONIC CHANGES OF ATROPHY AND MICROVASCULAR ISCHEMIA. NO ACUTE PROCESS. EVIDENCE OF ACUTE STROKE: NO. Assessment & Plan - Diagnosis (1) Acute hepatic encephalopathy Is this a current diagnosis for this admission?: Yes Plan: Patient sensorium is improved, serum ammonia level normalized, continue lactulose continue rifaximin (2) Cirrhosis of liver due to hepatitis B Is this a current diagnosis for this admission?: Yes Plan: Continue entecavir, antiviral agent for treatment of hepatitis B (3) Chronic hepatitis B without delta agent with cirrhosis Is this a current diagnosis for this admission?: Yes (4) Parkinson disease Is this a current diagnosis for this admission?: Yes - Time Time Spent with patient: 25-34 minutes Level of Care: IMCU Medications reviewed and adjusted accordingly: Yes Anticipated discharge: Home Anticipated DC Timeframe: within 24 hours
--- NOTE | 2020-03-07 20:28 | PDOC DISCHARGE SUMMARY ---
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 Is this a current diagnosis for this admission?: Yes (4) Parkinson disease Is this a current diagnosis for this admission?: Yes - Additional Information Referrals: MCKAYLA AGUAYO MD [Primary Care Provider] - Follow up as needed Home Medications: RX: Amlodipine Besylate [Norvasc 2.5 mg Tablet] 5 mg PO Q12 11/30/17 RX: Clonidine HCl [Catapres 0.2 mg Tablet] 0.2 mg PO QHS 11/30/17 RX: Entecavir [Baraclude] 0.5 mg PO DAILY 11/30/17 RX: Ergocalciferol (Vitamin D2) [Drisdol 50,000 unit (1.25MG) Capsule] 50,000 unit PO MO@1000 11/30/17 RX: Ezetimibe [Zetia 10 mg Tablet] 10 mg PO DAILY 11/30/17 RX: Lactulose [Constulose 10 gm/15 mL Oral Solution] 60 ml PO Q6 11/30/17 RX: Omeprazole 20 mg PO Q6AM 11/30/17 RX: Potassium Chloride [Klor-Con 10 Meq Tablet ER] 10 meq PO Q12 11/30/17 RX: Rifaximin [Xifaxan 550 mg Tablet] 550 mg PO Q12 11/30/17 RX: Butalb/Acetaminophen/Caffeine [Kxqihp-Mmqnnxjt-Gwaz 50-325-40] 1 tab PO ASDIR PRN 03/05/20 RX: Carbidopa/Levodopa [Carbidopa-Levodopa 10-100 Tab] 1 tab PO Q8 03/05/20 RX: Levothyroxine Sodium [Synthroid 0.025 mg Tablet] 0.025 mg PO Q6AM 03/05/20 RX: Sodium Bicarbonate [Sodium Bicarbonate 650 mg Tablet] 650 mg PO QPM 03/05/20 History of Present Illiness History of Present Illness: LISA KHANNA is a 79 year old female She has hepatitis B liver cirrhosis on active treatment with antiviral agent, Entecavir, She was brought to emergency room for evaluation of acute confusion, stupor, altered mental status. The son reportedly told EMS that when patient gets this way it is usually related to the blood ammonia level. History taking was challenging patient does not respond appropriately she is alert but not communicating. I called the son directly to talk to him but could not reach him, the RN nurse spoke to him specifically about CODE STATUS, he stated she is a full code. He also said she had respiratory symptoms for the last few days shortness of breath and cough because of this history a rapid Covid test was obtained which was negative.CT head was obtained was negative, serum ammonia level was elevated Hospital Course Hospital Course: Patient was admitted for the management of acute hepatic encephalopathy, she was treated with lactulose, rifaximin. There was no apparent precipitating factor, patient responded in 24 hours she became alert oriented to time place and person. She is discharged home today Physical Exam Vital Signs: Temp Pulse Resp BP Pulse Ox 98.2 F 85 16 102/60 98 03/07/20 15:28 03/07/20 15:28 03/07/20 15:28 03/07/20 15:28 03/07/20 15:28 Intake & Output 03/06/20 03/07/20 03/08/20 06:59 06:59 06:59 Intake Total 1000 240 240 Output Total 2225 3000 400 Balance -6795 -9940 -160 Weight 54.1 kg 54.1 kg General appearance: PRESENT: no acute distress Eye exam: PRESENT: PERRLA Respiratory exam: PRESENT: clear to auscultation karma Cardiovascular exam: PRESENT: +S1, +S2 GI/Abdominal exam: PRESENT: soft Neurological exam: PRESENT: alert, CN II-XII grossly intact Results Laboratory Results: WBC 5.2 10^3/uL (4.0-10.5) 03/07/20 06:49 RBC 4.40 10^6/uL (3.72-5.28) 03/07/20 06:49 Hgb 11.8 g/dL (12.0-15.5) L 03/07/20 06:49 Hct 35.2 % (36.0-47.0) L 03/07/20 06:49 MCV 80 fl (80-97) 03/07/20 06:49 MCH 26.8 pg (27.0-33.4) L 03/07/20 06:49 MCHC 33.5 g/dL (32.0-36.0) 03/07/20 06:49 RDW 17.9 % (11.5-14.0) H 03/07/20 06:49 Plt Count 71 10^3/uL (150-450) L 03/07/20 06:49 Lymph % (Auto) Not Reportable 03/07/20 06:49 [place] % (Auto) Not Reportable 03/07/20 06:49 Eos % (Auto) Not Reportable 03/07/20 06:49 Baso % (Auto) Not Reportable 03/07/20 06:49 Absolute Neuts (auto) Not Reportable 03/07/20 06:49 Absolute Lymphs (auto) Not Reportable 03/07/20 06:49 Absolute Monos (auto) Not Reportable 03/07/20 06:49 Absolute Eos (auto) Not Reportable 03/07/20 06:49 Absolute Basos (auto) Not Reportable 03/07/20 06:49 Total Counted 100 03/07/20 06:49 Seg Neutrophils % Not Reportable 03/07/20 06:49 Seg Neuts % (Manual) 50 % (42-78) 03/07/20 06:49 Band Neutrophils % Cancelled 03/06/20 09:37 Lymphocytes % (Manual) 37 % (13-45) 03/07/20 06:49 Atypical Lymphs % 7 % (0) 03/06/20 11:29 Monocytes % (Manual) 8 % (3-13) 03/07/20 06:49 Eosinophils % (Manual) 4 % (0-6) 03/07/20 06:49 Basophils % (Manual) 1 % (0-2) 03/07/20 06:49 Metamyelocytes % Cancelled 03/06/20 09:37 Myelocytes % Cancelled 03/06/20 09:37 Promyelocytes % Cancelled 03/06/20 09:37 Immature Leukocytes % Cancelled 03/06/20 09:37 Abs Neuts (Manual) 2.6 10^3/uL (1.7-8.2) 03/07/20 06:49 Abs Lymphs (Manual) 1.9 10^3/uL (0.5-4.7) 03/07/20 06:49 Abs Monocytes (Manual) 0.4 10^3/uL (0.1-1.4) 03/07/20 06:49 Absolute Eos (Manual) 0.2 10^3/uL (0.0-0.6) 03/07/20 06:49 Abs Basophils (Manual) 0.1 10^3/uL (0.0-0.2) 03/07/20 06:49 Nucleated RBCs Cancelled 03/06/20 09:37 Differential Comment Cancelled 03/06/20 09:37 Hypersegmented Neuts Cancelled 03/06/20 09:37 Smudge Cells Cancelled 03/06/20 09:37 Toxic Granulation Cancelled 03/06/20 09:37 Toxic Vacuolation Cancelled 03/06/20 09:37 Dohle Bodies Cancelled 03/06/20 09:37 Lisa Rods Cancelled 03/06/20 09:37 WBC Morphology Comment Cancelled 03/06/20 09:37 Platelet Estimate Cancelled 03/06/20 09:37 Clumped Platelets Cancelled 03/06/20 09:37 Large Platelets PRESENT 03/06/20 11:29 Giant Platelets Cancelled 03/06/20 09:37 Platelet Comment DECREASED 03/07/20 06:49 Polychromasia 1+ 03/06/20 11:29 Hypochromasia SLIGHT 03/07/20 06:49 Poikilocytosis 1+ 03/06/20 11:29 Basophilic Stippling Cancelled 03/06/20 09:37 Anisocytosis 1+ 03/07/20 06:49 Microcytosis SLIGHT 03/07/20 06:49 Macrocytosis Cancelled 03/06/20 09:37 Spherocytes Cancelled 03/06/20 09:37 Pappenheimer Bodies PRESENT 03/06/20 11:29 Sickle Cells Cancelled 03/06/20 09:37 Target Cells 2+ 03/07/20 06:49 Tear Drop Cells 1+ 03/06/20 11:29 Ovalocytes SLIGHT 03/06/20 11:29 Stomatocytes Cancelled 03/06/20 09:37 Helmet Cells Cancelled 03/06/20 09:37 [place] Bodies Cancelled 03/06/20 09:37 Debbie Cells Cancelled 03/06/20 09:37 Acanthocytes (Spur) Cancelled 03/06/20 09:37 Rouleaux Cancelled 03/06/20 09:37 Schistocytes Cancelled 03/06/20 09:37 RBC Morph Comment Cancelled 03/06/20 09:37 PT 14.2 SEC (11.4-15.4) 03/05/20 18:03 INR 1.08 03/05/20 18:03 APTT 27.5 SEC (23.5-35.8) 03/05/20 18:03 Sodium 142.1 mmol/L (137-145) 03/06/20 06:56 Potassium 3.9 mmol/L (3.6-5.0) 03/06/20 06:56 Chloride 111 mmol/L (98-107) H 03/06/20 06:56 Carbon Dioxide 22 mmol/L (22-30) 03/06/20 06:56 Anion Gap 9 (5-19) 03/06/20 06:56 BUN 11 mg/dL (7-20) 03/06/20 06:56 Creatinine 0.70 mg/dL (0.52-1.25) 03/06/20 06:56 Est GFR ( Amer) > 60 (>60) 03/06/20 06:56 Est GFR (MDRD) Non-Af > 60 (>60) 03/06/20 06:56 Glucose 99 mg/dL (75-110) 03/06/20 06:56 POC Glucose 111 mg/dL (70-110) H 03/05/20 22:40 Hemoglobin A1c % 4.7 % (4.7-6.0) 03/06/20 11:29 Lactic Acid 3.8 mmol/L (0.7-2.1) H 03/05/20 09:48 Calcium 9.8 mg/dL (8.4-10.2) 03/06/20 06:56 Phosphorus 3.6 mg/dL (2.5-4.5) 03/05/20 18:03 Magnesium 2.0 mg/dL (1.6-2.3) 03/05/20 18:03 Total Bilirubin 2.1 mg/dL (0.2-1.3) H 03/06/20 06:56 Direct Bilirubin 0.3 mg/dL (0.0-0.4) 03/06/20 06:56 Neonat Total Bilirubin Not Reportable 03/06/20 06:56 Neonat Direct Bilirubin Not Reportable 03/06/20 06:56 Neonat Indirect Bili Not Reportable 03/06/20 06:56 AST 56 U/L (14-36) H 03/06/20 06:56 ALT 18 U/L (<35) 03/06/20 06:56 Alkaline Phosphatase 77 U/L (38-126) 03/06/20 06:56 Ammonia 15.0 umol/L (9-33) 03/07/20 06:49 Creatine Kinase 411 U/L (30-135) H 03/06/20 06:56 CK-MB (CK-2) 2.82 ng/mL (<4.55) 03/06/20 06:56 Total Protein 6.5 g/dL (6.3-8.2) 03/06/20 06:56 Albumin 3.3 g/dL (3.5-5.0) L 03/06/20 06:56 Triglycerides 47 mg/dL (<150) 03/06/20 06:56 Cholesterol 188.61 mg/dL (0-200) 03/06/20 06:56 LDL Cholesterol Direct 57 mg/dL (<100) 03/06/20 06:56 VLDL Cholesterol 9.0 mg/dL (10-31) L 03/06/20 06:56 HDL Cholesterol 109 mg/dL (>40) 03/06/20 06:56 Amylase 99 U/L (30-110) 03/05/20 18:03 Lipase 80.4 U/L (23-300) 03/05/20 18:03 TSH 5.14 uIU/mL (0.47-4.68) H 03/05/20 18:03 Free T4 1.43 ng/dL (0.78-2.19) 03/05/20 18:03 Urine Color YELLOW 03/05/20 06:45 Urine Appearance CLEAR 03/05/20 06:45 Urine pH 7.0 (5.0-9.0) 03/05/20 06:45 Ur Specific [place] 1.012 03/05/20 06:45 Urine Protein 30 mg/dL (NEGATIVE) H 03/05/20 06:45 Urine Glucose (UA) NEGATIVE mg/dL (NEGATIVE) 03/05/20 06:45 Urine Ketones NEGATIVE mg/dL (NEGATIVE) 03/05/20 06:45 Urine Blood SMALL (NEGATIVE) H 03/05/20 06:45 Urine Nitrite NEGATIVE (NEGATIVE) 03/05/20 06:45 Urine Bilirubin NEGATIVE (NEGATIVE) 03/05/20 06:45 Urine Urobilinogen 2.0 mg/dL (<2.0) H 03/05/20 06:45 Ur Leukocyte Esterase TRACE (NEGATIVE) H 03/05/20 06:45 Urine WBC (Auto) 5 /HPF 03/05/20 06:45 Urine RBC (Auto) 7 /HPF 03/05/20 06:45 Urine Mucus (Auto) RARE /LPF 03/05/20 06:45 Urine Ascorbic Acid NEGATIVE (NEGATIVE) 03/05/20 06:45 Urine Opiates Screen NEGATIVE 03/05/20 06:45 Urine Methadone Screen NEGATIVE 03/05/20 06:45 Ur Barbiturates Screen UNCONFIRMED POSITIVE 03/05/20 06:45 Ur Phencyclidine Scrn NEGATIVE 03/05/20 06:45 Ur Amphetamines Screen NEGATIVE 03/05/20 06:45 U Benzodiazepines Scrn NEGATIVE 03/05/20 06:45 Urine Cocaine Screen NEGATIVE 03/05/20 06:45 U Marijuana (THC) Screen NEGATIVE 03/05/20 06:45 Serum Alcohol < 10 mg/dL (NONE DETECTED) 03/05/20 03:50 Influenza A (RT-PCR) NEGATIVE (NEGATIVE) 03/05/20 15:24 Influenza B (RT-PCR) NEGATIVE (NEGATIVE) 03/05/20 15:24 RSV (RT-PCR) NEGATIVE (NEGATIVE) 03/05/20 15:24 SARS-CoV-2 Rap RNA(RT-PCR) NEGATIVE (NEGATIVE) 03/05/20 15:24 Slides for Path Review Cancelled 03/06/20 09:37 03/05/20 03/06/20 03/06/20 18:03 00:32 06:56 CK-MB (CK-2) 2.88 2.69 2.82 Impressions: Head CT 03/05/20 00:00 IMPRESSION: MILD CHRONIC CHANGES OF ATROPHY AND MICROVASCULAR ISCHEMIA. NO ACUTE PROCESS. EVIDENCE OF ACUTE STROKE: NO. Stroke Is this a Stroke Patient?: No Acute Heart Failure Is this a Heart Failure Patient?: No
[2020-03-08] MEDS: CARBIDOPA/LEVODOPA 10-100 MG TABLET PO SCH (05:01)
[2020-03-08] MEDS: LEVOTHYROXINE SODIUM 0.025 MG TABLET PO SCH (05:01)
[2020-03-08 05:57] LABS: HEMATOCRIT 33.3 % (36.0-47.0); MEAN CORPUSCULAR HEMOGLOBIN 26.8 pg (27.0-33.4); MEAN CORPUSCULAR HGB CONC 33.2 g/dL (32.0-36.0); MEAN CORPUSCULAR VOLUME 81 fl (80-97); RED BLOOD COUNT 4.12 10^6/uL (3.72-5.28); RED CELL DISTRIBUTION WIDTH 18.2 % (11.5-14.0); WHITE BLOOD COUNT 4.9 10^3/uL (4.0-10.5)
[2020-03-08] MEDS: LACTULOSE SYRUP 20 GM/30 ML UDCUP PO SCH (06:53)
[2020-03-08 07:00] LABS: PLATELET COUNT 65 10^3/uL (150-450)
[2020-03-08 07:01] LABS: ABSOLUTE LYMPHOCYTES# (MANUAL) 1.7 10^3/uL (0.5-4.7); ABSOLUTE MONOCYTES # (MANUAL) 0.5 10^3/uL (0.1-1.4); BASOPHILS % (MANUAL) 0 % (0-2); EOSINOPHILS % (MANUAL) 4 % (0-6); LYMPHOCYTES % (MANUAL) 34 % (13-45); MONOCYTES % (MANUAL) 10 % (3-13); SEGMENTED NEUTROPHILS % (MAN) 52 % (42-78); TOTAL CELLS COUNTED 100
[2020-03-08 07:05] LABS: ANISOCYTOSIS 2+; HYPOCHROMASIA SLIGHT; PLATELET COMMENT DECREASED; TARGET CELLS 1+; TEAR DROP CELLS SLIGHT
[2020-03-08] MEDS: EZETIMIBE 10 MG TABLET PO SCH (09:28)
[2020-03-08] MEDS: CLONIDINE HCL 0.2 MG TABLET PO SCH (09:28)
[2020-03-08] MEDS: Entecavir [Baraclude] 0.5 MG Tablet PO SCH (09:28)
[2020-03-08] MEDS: RIFAXIMIN 550 MG TABLET PO SCH (09:28)
[2020-03-08 10:11] VITALS: BP 115/63
[2020-03-09] MEDS ORDERED: ERGOCALCIFEROL (VITAMIN D2) 50000 UNIT (1.25 MG) CAPSULE PO SCH (10:00)
== END 2020-03-08 11:20 | disposition home or self-care (01) | DRG 442 ==
LOC: ER 04:43 → EH 11:45 → 5 14:18
PROVIDERS: ADMIT Internal Medicine; ATTEND Internal Medicine
DX: K72.00 Acute and subacute hepatic failure without coma (principal); B18.1 Chronic viral hepatitis B without delta-agent; Z20.828 Contact with and (suspected) exposure to other viral communicable diseases; G20 Parkinson's disease; K74.69 Other cirrhosis of liver; E78.5 Hyperlipidemia, unspecified; I10 Essential (primary) hypertension; K21.9 Gastro-esophageal reflux disease without esophagitis; F02.80 Dementia in other diseases classified elsewhere, unspecified severity, without behavioral disturbance, psychotic disturbance, mood disturbance, and anxiety; E78.00 Pure hypercholesterolemia, unspecified; R74.02 Elevation of levels of lactic acid dehydrogenase [LDH]; Z79.890 Hormone replacement therapy; Z79.899 Other long term (current) drug therapy; Z88.6 Allergy status to analgesic agent; Z91.030 Bee allergy status; Z87.891 Personal history of nicotine dependence
CPT/HCPCS: 36415; 70450; 80053; 80061; 80307; 81001; 82140; 82150; 82550; 82553; 82962; 83036; 83605; 83690; 83735; 84100; 84439; 84443; 85025; 85610; 85730; 87040; 93005; 93010; 96360; 99285; 0241U; A9270-GY; C9803; J3490; J7120

== ENCOUNTER 2020-03-09 07:02 | Emergency (ER) | payer MEDICARE, BC ==
[2020-03-09 08:39] LABS: HEMATOCRIT 34.1 % (36.0-47.0); HEMOGLOBIN 11.2 g/dL (12.0-15.5); MEAN CORPUSCULAR HEMOGLOBIN 26.4 pg (27.0-33.4); MEAN CORPUSCULAR HGB CONC 32.7 g/dL (32.0-36.0); MEAN CORPUSCULAR VOLUME 81 fl (80-97); RED BLOOD COUNT 4.23 10^6/uL (3.72-5.28); RED CELL DISTRIBUTION WIDTH 18.5 % (11.5-14.0); WHITE BLOOD COUNT 4.7 10^3/uL (4.0-10.5)
[2020-03-09 09:01] LABS: ALBUMIN 2.9 g/dL (3.5-5.0); ALKALINE PHOSPHATASE 93 U/L (38-126); ANION GAP 8 (5-19); ASPARTATE AMINO TRANSFERASE 66 U/L (14-36); BILIRUBIN,DIRECT 0.3 mg/dL (0.0-0.4); BILIRUBIN,TOTAL 0.8 mg/dL (0.2-1.3); BLOOD UREA NITROGEN 12 mg/dL (7-20); CALCIUM 8.8 mg/dL (8.4-10.2); CARBON DIOXIDE 21 mmol/L (22-30); CHLORIDE 109 mmol/L (98-107); GLUCOSE 101 mg/dL (75-110); POTASSIUM 3.6 mmol/L (3.6-5.0); TOTAL PROTEIN 5.5 g/dL (6.3-8.2)
[2020-03-09 09:02] LABS: PLATELET COUNT 74 10^3/uL (150-450)
[2020-03-09 09:06] LABS: ABSOLUTE LYMPHOCYTES# (MANUAL) 1.9 10^3/uL (0.5-4.7); ABSOLUTE MONOCYTES # (MANUAL) 0.3 10^3/uL (0.1-1.4); BAND NEUTROPHILS % (MANUAL) 3 % (3-5); BASOPHILS % (MANUAL) 0 % (0-2); EOSINOPHILS % (MANUAL) 4 % (0-6); LYMPHOCYTES % (MANUAL) 37 % (13-45); MONOCYTES % (MANUAL) 7 % (3-13); NUCLEATED RED BLOOD CELLS 2 /100 WBC (0); SEGMENTED NEUTROPHILS % (MAN) 45 % (42-78); TOTAL CELLS COUNTED 100
[2020-03-09 09:07] LABS: ACETAMINOPHEN < 10 ug/mL (10-30); ALCOHOL < 10 mg/dL (NONE DETECTED); SALICYLATE < 1.0 mg/dL (2.0-20.0)
[2020-03-09 09:08] LABS: ANISOCYTOSIS 1+; PLATELET COMMENT DECREASED; TARGET CELLS 2+
[2020-03-09 09:09] LABS: HYPOCHROMASIA SLIGHT
--- NOTE | 2020-03-09 09:30 | EKG REPORT ---
SEVERITY:- ABNORMAL ECG - SINUS RHYTHM SUPRAVENTRICULAR BIGEMINY : Confirmed by: Satya Wang MD 09-Mar-2020 09:30:18
[2020-03-09 09:37] LABS: APPEARANCE,URINE CLEAR; BILIRUBIN,URINE NEGATIVE (NEGATIVE); COLOR,URINE YELLOW; GLUCOSE, URINE NEGATIVE (NEGATIVE); KETONES,URINE NEGATIVE (NEGATIVE); LEUKOCYTE ESTERASE,URINE MODERATE (NEGATIVE); NITRITE,URINE NEGATIVE (NEGATIVE); PROTEIN,URINE NEGATIVE (NEGATIVE); URINE SPECIFIC GRAVITY 1.004; UROBILINOGEN,URINE NEGATIVE mg/dL (<2.0)
[2020-03-09 09:52] LABS: URINE AMPHETAMINES SCREEN NEGATIVE; URINE BENZODIAZEPINES SCREEN NEGATIVE; URINE COCAINE SCREEN NEGATIVE; URINE MARIJUANA (THC) SCREEN NEGATIVE; URINE METHADONE SCREEN NEGATIVE; URINE PHENCYCLIDINE SCREEN NEGATIVE
[2020-03-09 09:53] LABS: URINE BARBITURATES SCREEN UNCONFIRMED POSITIVE
--- NOTE | 2020-03-09 10:18 | ER Document Report ---
ED General <KURT PERKINS - Last Filed: 03/09/20 12:40> - General TRAVEL OUTSIDE OF THE [place] IN LAST 30 DAYS: No - Related Data Home Medications: Reviewed from hospital stay last week <ISAAC THAKKAR - Last Filed: 03/09/20 12:51> - General Chief Complaint: Psych Problem Stated Complaint: SUICIDAL IDEATION Time Seen by Provider: 03/09/20 07:14 Primary Care Provider: [facility] [Outside] - Follow up as needed [facility] [Outside] - Follow up as needed DENISE HO MD [Primary Care Provider] - Follow up as needed - [facility] Notes: Patient is a 79-year-old female presents emergency department for evaluation of suicidal ideation and difficulty sleeping. She was just discharged from the hospital. She states she did not sleep well when she was there. She states that she started having suicidal thoughts, expressed them to her child, and they sent her here for further evaluation. The patient just states that she wished she was . She has no active suicidal ideation. No plan. She has no history of suicidal ideation or hospitalization for psychiatric issues. She denies any pain. She states she just feels anxious. No chest pain or shortness of breath. She does states she would like to get some sleep. She has not tried any medications. She has not discussed this with her primary care provider. (ISAAC THAKKAR) - Related Data Allergies/Adverse Reactions: divalproex sodium [From Depakote] Adverse Reaction (Intermediate, Verified 03/09/20 08:59) BEE STING Adverse Reaction (Severe, Uncoded 03/09/20 08:59) Past Medical History - General Information source: Patient, [facility] Records - Social History Smoking Status: Former Smoker Chew tobacco use (# tins/day): No Drug Abuse: None Family History: Reviewed & Not Pertinent - Past Medical History Cardiac Medical History: Reports: Hx Hypercholesterolemia, Hx Hypertension Denies: Hx Coronary Artery Disease, Hx Heart Attack Pulmonary Medical History: Denies: Hx Asthma, Hx Bronchitis, Hx COPD, Hx Pneumonia, Hx Tuberculosis Neurological Medical History: Reports: Hx Migraine, Hx Parkinson's Disease. Denies: Hx Cerebrovascular Accident, Hx Seizures Renal/ Medical History: Denies: Hx Peritoneal Dialysis GI Medical History: Reports: Hx Cirrhosis, Hx Gastroesophageal Reflux Disease, Hx Hepatitis, Hx Liver Failure - Hepatic Encephalopathy Musculoskeletal Medical History: Reports Hx Arthritis Psychiatric Medical History: Reports: Hx Dementia, Hx Depression Infectious Medical History: Reports: Hx Hepatitis Past Surgical History: Reports: Hx Section, Hx Tubal Ligation. Denies: Hx Hysterectomy, Hx Pacemaker - Immunizations Immunizations up to date: Yes Hx Diphtheria, Pertussis, Tetanus Vaccination: Yes Hx Pneumococcal Vaccination: 03/10/10 <ISAAC THAKKAR - Last Filed: 03/09/20 12:51> Review of Systems - Review of Systems Constitutional: See HPI EENT: No symptoms reported Cardiovascular: No symptoms reported Respiratory: No symptoms reported Gastrointestinal: No symptoms reported Genitourinary: No symptoms reported Musculoskeletal: No symptoms reported Skin: No symptoms reported Neurological/Psychological: See HPI <ISAAC THAKKAR - Last Filed: 03/09/20 12:51> Physical Exam <ISAAC THAKKAR - Last Filed: 03/09/20 12:51> - Vital signs Vitals: Temp Pulse Resp BP Pulse Ox 98.7 F 72 16 112/59 L 97 03/09/20 07:22 03/09/20 07:22 03/09/20 07:22 03/09/20 07:22 03/09/20 07:22 - Notes Notes: Vital signs reviewed, please refer to chart. Head is normocephalic, atraumatic. Pupils equal round, reactive to light. Neck is supple without meningismus. Heart is regular rate and rhythm. Lungs are clear to auscultation bilaterally. Abdomen is soft, nontender, normoactive bowel sounds throughout. Extremities without cyanosis, clubbing. Posterior calves are nontender. Peripheral pulses are equal. Skin is warm and dry. Patient is awake, alert, neurological exam is nonfocal. No asterixis. (ISAAC THAKKAR) Course - Laboratory Result Diagrams: 03/09/20 08:20 03/09/20 08:20 <KURT PERKINS - Last Filed: 03/09/20 12:40> - Laboratory Result Diagrams: 03/09/20 08:20 03/09/20 08:20 <ISAAC THAKKAR - Last Filed: 03/09/20 12:51> - Re-evaluation Re-evalutation: 03/09/20 10:16 Patient presents emergency department for evaluation. She states she was having suicidal thoughts, but they were all passive. She has no plan. She has chronic medical issues. I discussed with her her thought process, she states now that she regrets saying anything. She just wants help feeling less anxious and help getting to sleep. At this point the patient has some chronic lab changes, but nothing acute. There is some blood and white blood cells in her urine but she has absolutely no urinary symptoms. I will send this off her culture, but suspect contamination. Otherwise she is medically cleared. Awaiting psychosoci al evaluation. 03/09/20 12:[address] Ho, the patient's primary care provider. He would prefer that the patient be treated for urinary tract infection. I will give her a 5- day course of Keflex. Otherwise, psychosocial team recommends BuSpar. I will start her on that. He is in agreement that no significant prescription should be made in regards to her insomnia. Again recommend [id number] melatonin as needed. She is to follow-up with Dr. Ho. Return to the ED with worsening or new concerning symptoms of any sort. (ISAAC THAKKAR) - Vital Signs Vital signs: Temp Pulse Resp BP Pulse Ox 98.8 F 73 16 126/56 H 99 03/09/20 11:45 03/09/20 11:45 03/09/20 07:22 03/09/20 11:45 03/09/20 11:45 - Laboratory Laboratory results interpreted by me: 03/09/20 03/09/20 03/09/20 08:20 08:20 09:20 Hgb 11.2 L Hct 34.1 L MCH 26.4 L RDW 18.5 H Plt Count 74 L Chloride 109 H Carbon Dioxide 21 L AST 66 H Total Protein 5.5 L Albumin 2.9 L Urine Blood LARGE H Ur Leukocyte Esterase MODERATE H Salicylates < 1.0 L Acetaminophen < 10 L - EKG Interpretation by Me Additional EKG results interpreted by me: 03/09/20 10:17 Sinus mechanism with a rate of 66 bpm, supraventricular bigeminy noted. Normal axis and intervals. Nonspecific ST changes, no acute changes concerning for ischemia or infarction. (ISAAC THAKKAR) Discharge <KURT PERKINS - Last Filed: 03/09/20 12:40> <ISAAC THAKKAR - Last Filed: 03/09/20 12:51> - Discharge Clinical Impression: Suicidal ideation Insomnia Qualifiers: Insomnia type: unspecified Qualified Code(s): G47.00 - Insomnia, unspecified Condition: Stable Disposition: HOME, SELF-CARE Instructions: Anxiety ([facility]), Cephalexin ([facility]), Suicidal Ideation ([facility]), Urinary Tract Infection ([facility]) Additional Instructions: You have been evaluated by both medical and behavioral health teams for suicidal ideation. You have been deemed appropriate for discharge. While in the emergency department you received the following services/or had access to: Medical screening and assessment, nursing services, dietary services, pharmaco logical services, one-on-one counseling and/or psychotherapy, environmental services, and continuous observation by a patient safety deposit boxes custodian. Medication recommendations per [facility] contracted psychiatrist, Dr. Latha LOPES, are as follows: start Buspar 5mg twice a day You should take these medications as prescribed until you establish and follow up with your outpatient medication provider unless you experience negative side effects then return to the emergency department. Please take BuSpar as well as Keflex as directed. Your prescriptions have both been sent to your pharmacy. Follow-up with Dr. Ho this week. Return to the emergency department with worsening or new concerning symptoms of any sort. Suicidal Ideation Suicidal ideation is a common medical term for thoughts about suicide, which may be as detailed as a formulated plan, without the suicidal act itself. Although most people who undergo suicidal ideation do not commit suicide, some go on to make suicide attempts. The range of suicidal ideation varies greatly from fleeting to detailed planning, role playing, and unsuccessful attempts. While thoughts about suicide are common, most people do not carry out serious actions to commit suicide. However, based upon your evalutation and discussion with you, we believe you are not currently at risk to act upon your thoughts of suicide. Therefore, you will be discharged home. You are currently not involved in outpatient therapy or medication management. We have started you on medication and highly recommend you follow up with outpatient provider (or your PCP Dr. Ho) and continue medication management. [facility] spoke to your son, Elgin at [phone] and he was informed of medication changes made and to follow up with outpatient provider. You have been given a community outpatient referral list to include phone numbers for [facility] and [facility]. If you experience worsening or a significant change in your symptoms, notify the physician immediately, utilize mobile crisis, or return to the Emergency Department at any time for re-evaluation. Dr. Melendez was consulted to care management of this patient; attending physicians in agreement with recommendations and disposition. Prescriptions: Buspirone HCl [Buspar 10 mg Tablet] 5 mg PO BID #30 tablet Cephalexin Monohydrate [Keflex 500 mg Capsule] 500 mg PO TID #14 capsule Referrals: DENISE HO MD [Primary Care Provider] - Follow up as needed [facility] [Outside] - Follow up as needed [facility] [Outside] - Follow up as needed
[2020-03-09] MEDS ORDERED: BUSPIRONE HCL 10 MG TABLET PO ONE (12:19)
[2020-03-09] MEDS ORDERED: CEPHALEXIN 500 MG CAPSULE PO ONE (12:22)
--- NOTE | 2020-03-09 13:38 | PSYCHOLOGICAL NOTE ---
Psych Note - Psych Note Date seen by psych provider: 03/09/20 Time seen by psych provider: 10:37 Psych Note: [id number] Reason for Consult: suicidal ideations Consent Permissions: koby Cox, Patient is a 79 year old female who presented to the [facility] ED today via EMS for medical concerns. While in the ED, patient expressed passive suicidal ideations. Patient was recently discharged from the hospital, however has not been sleeping well. Patient expressed that she started having suicidal thoughts, expressed them to her child, and they sent her to the ED for further evaluation. Patient had reports she just wished she was . During the evaluation, patient denies suicidal ideation, plan, and intent. She states does not want to , however has been dealing with sleep troubles and made the statement without any plan or intent. Patient resides with her two sons and states she has no mental health history to include suicide attempts, impatient hospitalizations, or psychiatric medications. She reports stressors to include her physical health and trouble sleeping. Collateral: Jamey, son, Spoke to Jamey at 1251 to coordinate discharge plan of care. He reported Elgin would be picking patient up from hospital when he left the gym, unknown time frame. He would not give another phone number and was going to call Elgin himself. He agrees him and Elgin will be a part of discharge plan and was informed of medication and following up with PCP. Patient was alert and oriented to self, person, place, time and situation. Mood was sad and tired with congruent affect. She denied current suicidal ideation, plan, and intent. Patient did not appear to be responding to internal stimuli as evidenced by fair eye contact and answering questions appropriately when addressed. Thought processes are linear and organized. Attention and concentration are fair. Conversational speech was within normal limits for rate, tone and prosody. Intellectual abilities are estimated to be average. Insight, judgment and impulse control were fair as evidenced by informing her children when she was feeling unsafe and asking for help. Patient demonstrated future forward goal oriented thinking as she reports plans to follow up with PCP for medication management and reports not wanting to . Patient engages appropriately. Clinical Presentation: passive suicidal ideation, denies plan and intent IVC Criteria per [place] GS 122C Dangerous to others Within the relevant past the individual No has inflicted or attempted to inflict or threatened to inflict serious bodily harm on another AND No that there is a reasonable probability that this conduct will be repeated. OR No has acted in such a way as to create a substantial risk of serious bodily harm to another AND No that there is a reasonable probability that this conduct will be repeated. OR No has engaged in extreme destruction of property AND NO that there is a reasonable probability that this conduct will be repeated. Previous episodes of dangerousness to others, when applicable, may be considered when determining reasonable probability of future dangerous conduct. Clear, cogent, and convincing evidence that an individual has committed a homicide in the relevant past is prima facie evidence of dangerousness to others. Dangerous to self Within the relevant past the individual has done any of the following: acted in such a way as to show ALL of the following: No The individual would be unable without care, supervision, and the continued assistance of others not otherwise available, to exercise self- control, judgment, and discretion in the conduct of the individual's daily responsibilities and social relations or to satisfy the individual's need for nourishment, personal or medical care, fci, or self-protection and safety. AND No There is a reasonable probability of the individual suffering serious physical debilitation within the near future unless adequate treatment is given. A showing of behavior that is grossly irrational, of actions that the individual is unable to control, of behavior that is grossly inappropriate to the situation, or of other evidence of severely impaired insight and judgment shall create a prima facie inference that the individual is unable to care for himself or herself. OR Yes has attempted suicide or threatened suicide Patient made a passive suicidal statement due to increased anxiety and not sleeping well AND No that there is a reasonable probability of suicide unless adequate treatment is given Patient denies current SI, plan, and intent; denies mental health history; has family support system to be part of plan of care upon discharge and plans to follow up with Dr. Ho to continue new psychiatric medications; demonstrates future forward goal oriented thinking OR No has mutilated himself or herself or attempted to mutilate himself or herself AND No that there is a reasonable probability of serious self-mutilation unless ad equate treatment is given. NOTE: Previous episodes of dangerousness to self, when applicable, may be considered when determining reasonable probability of physical debilitation, suicide, or self-mutilation. Medication recommendations per [facility] contracted psychiatrist, Dr. Latha LOPES, are as follows: start Buspar 5mg twice daily Impression\plan: Patient is cleared from acute psychiatric services. Patient was admitted to the ED for passive suicidal ideation. Upon evaluation, patient denies suicidal ideation, plan, and intent. She does not meet criteria for IVC and states she wants to live and wants to feel better. Patient was started on Buspar while in the ED and highly recommended to continue medications until able to follow up with medication management provider. Patient reported going to Dr. Ho and was encouraged to continue medication management with him. Patient was given a community referral list for outpatient providers in the area as well as mobile crisis numbers for [facility] and [facility]. Patient provided verbal consent to call her home and speak to whichever son was home. Clinician spoke to Jamey informing him of discharge plan and new mediation. He was also informed of patient being encouraged to follow up with PCP for continued medication management. Jamey reported her other son, Celestino would be picking patient up. The time was unknown as Celestino was at the gym and Jamey did not provide a number to contact him. Jamey was made aware of discharge plans and was going to inform Elgin as well. Patients sons agreed to be a part of patients plan of care and assist with getting a medication management appointment set up after picking up patient from the ED. Consulted with Dr. Melendez regarding the management and care of patient. ED Physician in agreement with recommendations.
[2020-03-09 15:21] VITALS: BP 117/65
== END 2020-03-09 15:10 | disposition home or self-care (01) ==
LOC: ER 07:02
DX: R45.851 Suicidal ideations (principal); G47.00 Insomnia, unspecified; F41.9 Anxiety disorder, unspecified; Z88.8 Allergy status to other drugs, medicaments and biological substances
CPT/HCPCS: 93005; 99285; 36415; 87086; 80307 ×4; 85025; 80053; 81001; 93010; A9270 ×2

== ENCOUNTER 2020-03-23 22:53 | Inpatient (IN) | payer MEDICARE, BC ==
[2020-03-24 00:19] LABS: HEMATOCRIT 36.9 % (36.0-47.0); HEMOGLOBIN 12.3 g/dL (12.0-15.5); MEAN CORPUSCULAR HEMOGLOBIN 26.9 pg (27.0-33.4); MEAN CORPUSCULAR HGB CONC 33.3 g/dL (32.0-36.0); MEAN CORPUSCULAR VOLUME 81 fl (80-97); PLATELET COUNT 109 10^3/uL (150-450); RED BLOOD COUNT 4.58 10^6/uL (3.72-5.28); RED CELL DISTRIBUTION WIDTH 19.1 % (11.5-14.0); WHITE BLOOD COUNT 6.3 10^3/uL (4.0-10.5)
[2020-03-24 00:20] LABS: APPEARANCE,URINE SLIGHTLY-CLOUDY; BILIRUBIN,URINE NEGATIVE (NEGATIVE); CALCIUM OXALATE CRYSTALS,URINE MANY /HPF; COLOR,URINE YELLOW; GLUCOSE, URINE NEGATIVE (NEGATIVE); KETONES,URINE NEGATIVE (NEGATIVE); LEUKOCYTE ESTERASE,URINE NEGATIVE (NEGATIVE); NITRITE,URINE NEGATIVE (NEGATIVE); PROTEIN,URINE 100 mg/dL (NEGATIVE); URINE SPECIFIC GRAVITY 1.012; UROBILINOGEN,URINE NEGATIVE mg/dL (<2.0)
[2020-03-24 00:27] LABS: ALBUMIN 3.8 g/dL (3.5-5.0); ALCOHOL < 10 mg/dL (NONE DETECTED); ALKALINE PHOSPHATASE 86 U/L (38-126); ANION GAP 7 (5-19); ASPARTATE AMINO TRANSFERASE 68 U/L (14-36); BILIRUBIN,DIRECT 0.4 mg/dL (0.0-0.4); BILIRUBIN,TOTAL 1.8 mg/dL (0.2-1.3); BLOOD UREA NITROGEN 19 mg/dL (7-20); CALCIUM 10.3 mg/dL (8.4-10.2); CARBON DIOXIDE 21 mmol/L (22-30); CHLORIDE 114 mmol/L (98-107); GLUCOSE 111 mg/dL (75-110); POTASSIUM 4.3 mmol/L (3.6-5.0); TOTAL PROTEIN 7.6 g/dL (6.3-8.2)
--- NOTE | 2020-03-24 00:28 | ER Document Report ---
ED General - General Chief Complaint: Altered Mental Status Stated Complaint: ALTERED MENTAL STATUS Primary Care Provider: DENISE PARISI MD [Primary Care Provider] - Follow up as needed Notes: 79-year-old female with dementia Parkinson's cirrhosis of unknown etiology hypertension hyperlipidemia depression presents with approximately 2 days of altered mental status. Family says that she normally is able to cook and walk and that over the last 2 days gradually she is been doing less activity and has stopped speaking. Family reports that patient has had several episodes of similar symptoms in the past which have been attributed to high ammonia levels. Patient unable to give history secondary to altered mental status/dementia TRAVEL OUTSIDE OF THE [place] IN LAST 30 DAYS: No - Related Data Allergies/Adverse Reactions: divalproex sodium [From Depakote] Adverse Reaction (Intermediate, Verified 03/09/20 08:59) BEE STING Adverse Reaction (Severe, Uncoded 03/09/20 08:59) Past Medical History - General Information source: Relative, [facility] Records - Social History Smoking Status: Unknown if Ever Smoked Family History: Reviewed & Not Pertinent Patient has homicidal ideation: No - Past Medical History Cardiac Medical History: Reports: Hx Hypercholesterolemia, Hx Hypertension Denies: Hx Coronary Artery Disease, Hx Heart Attack Pulmonary Medical History: Denies: Hx Asthma, Hx Bronchitis, Hx COPD, Hx Pneumonia, Hx Tuberculosis Neurological Medical History: Reports: Hx Migraine, Hx Parkinson's Disease. Denies: Hx Cerebrovascular Accident, Hx Seizures Renal/ Medical History: Denies: Hx Peritoneal Dialysis GI Medical History: Reports: Hx Cirrhosis, Hx Gastroesophageal Reflux Disease, Hx Hepatitis, Hx Liver Failure - Hepatic Encephalopathy Musculoskeletal Medical History: Reports Hx Arthritis Psychiatric Medical History: Reports: Hx Dementia, Hx Depression Infectious Medical History: Reports: Hx Hepatitis Past Surgical History: Reports: Hx Section, Hx Tubal Ligation. Denies: Hx Hysterectomy, Hx Pacemaker - Immunizations Immunizations up to date: Yes Hx Diphtheria, Pertussis, Tetanus Vaccination: Yes Hx Pneumococcal Vaccination: 03/10/10 Review of Systems - Review of Systems -: Yes ROS unobtainable due to patient's medical condition Physical Exam - Vital signs Vitals: Temp 98.6 F 03/23/20 22:53 - Notes Notes: PHYSICAL EXAMINATION: GENERAL: Elderly woman lying in stretcher opening eyes to pain and moving extremities to touch in no acute distress HEAD: Atraumatic, normocephalic. EYES: Pupils equal round and appropriate constriction, sclera anicteric, con junctiva are normal. ENT: nares patent, moist mucous membranes. NECK/BACK: Normal range of motion, supple without lymphadenopathy, no C/T/L/spinal tenderness or deformity LUNGS: Breath sounds clear to auscultation bilaterally and equal. No wheezes rales or rhonchi. Normal respiratory rate and effort HEART: Regular rate and rhythm with systolic murmur loudest over upper right sternal border ABDOMEN: Soft, nontender, no guarding, no masses, no CVAT, no distention, no fluid wave, no caput medusae EXTREMITIES: Normal range of motion, no pitting or edema. No cyanosis. NEUROLOGICAL: Awake, mildly lethargic but easily arouses with moaning and fighting by moving all extremities when aroused by voice or touch, 5 out of 5 strength in all extremities, neuro exam limited by patient mental status SKIN: Warm, Dry, normal turgor, no rashes or lesions noted, no decubitus ulcers Course - Re-evaluation Re-evalutation: 03/24/20 00:26 Patient with decreased level of consciousness without any focal findings and no other symptoms reported by family. Patient has had previous similar symptoms due to hyperammonemia, but will rule out intracranial hemorrhage, electrolyte abnormalities, symptomatic anemia, sepsis, atypical ACS. Patient mildly lethargic but easily aroused and protecting airway with normal respiratory effort and normal chest excursion and saturating 100% on room air, no indication for airway intervention at this time but will continue to monitor closely. 03/24/20 05:22 Patient's exam has remained stable, chest x-ray finds nondiagnostic possible opacification of left overload but given that patient is afebrile, has no leukocytosis, has no cough, and has a markedly elevated ammonia likely causing patient's altered mental status will defer antibiotics to inpatient team if patient's clinical picture should change. No indication to start them now, patient will be monitored for signs of pneumonia on medicine floor. Unable to obtain EKG given patient agitation given altered mental status would not be appropriate at this time to personally sedate patient as it would be likely to worsen patient's mental status and given negative troponin and stable vitals on monitor low suspicion that there would be meaningful clinical data obtained on EKG at this time. Discussed patient with Dr. Gannon during downtime at approximately 0348 and he accepted patient, but requested that patient be placed on Dr. Parisi service and not his own. - Vital Signs Vital signs: Temp Pulse Resp BP Pulse Ox 98 F 110 H 18 160/97 H 100 03/23/20 23:12 03/24/20 00:19 03/24/20 05:00 03/24/20 05:00 03/24/20 05:00 - Laboratory Results Result Diagrams: 03/23/20 23:50 03/23/20 23:50 Laboratory Results Interpreted: 03/23/20 03/23/20 03/23/20 23:50 23:50 23:50 MCH 26.9 L RDW 19.1 H Plt Count 109 L Band Neutrophils % 2 L Chloride 114 H Carbon Dioxide 21 L Est GFR (MDRD) Non-Af 52 L Glucose 111 H Calcium 10.3 H Magnesium 2.4 H Total Bilirubin 1.8 H AST 68 H Urine Protein 100 H Urine Blood LARGE H Critical Laboratory Results Reviewed: No Critical Results - Radiology Results Critical Radiology Results Reviewed: No Critical Results Discharge - Discharge Clinical Impression: Hepatic encephalopathy Altered mental status Qualifiers: Altered mental status type: unspecified Qualified Code(s): R41.82 - Altered mental status, unspecified Disposition: ADMITTED INPATIENT Admitting Provider: [facility] Unit Admitted: Medical Floor Referrals: DENISE PARISI MD [Primary Care Provider] - Follow up as needed
[2020-03-24 00:33] LABS: URINE AMPHETAMINES SCREEN NEGATIVE; URINE BENZODIAZEPINES SCREEN NEGATIVE; URINE COCAINE SCREEN NEGATIVE; URINE MARIJUANA (THC) SCREEN NEGATIVE; URINE METHADONE SCREEN NEGATIVE; URINE PHENCYCLIDINE SCREEN NEGATIVE
[2020-03-24] MEDS ORDERED: LACTULOSE SYRUP 20 GM/30 ML UDCUP ONE ×3 (03:39→06:38)
[2020-03-24 05:03] LABS: ABSOLUTE LYMPHOCYTES# (MANUAL) 2.1 10^3/uL (0.5-4.7); ABSOLUTE MONOCYTES # (MANUAL) 0.3 10^3/uL (0.1-1.4); BAND NEUTROPHILS % (MANUAL) 2 % (3-5); BASOPHILS % (MANUAL) 0 % (0-2); EOSINOPHILS % (MANUAL) 0 % (0-6); LYMPHOCYTES % (MANUAL) 33 % (13-45); MONOCYTES % (MANUAL) 4 % (3-13); SEGMENTED NEUTROPHILS % (MAN) 61 % (42-78); TOTAL CELLS COUNTED 100; TOXIC GRANULATION SLIGHT
[2020-03-24 05:04] LABS: ANISOCYTOSIS 2+; HYPOCHROMASIA SLIGHT; OVALOCYTES SLIGHT; PLATELET COMMENT ADEQUATE; POIKILOCYTOSIS SLIGHT; TEAR DROP CELLS SLIGHT
--- NOTE | 2020-03-24 05:11 | RADIOLOGY REPORT (SQ) ---
EXAM DESCRIPTION: CT HEAD WITHOUT IMAGES COMPLETED DATE/TIME: 03/24/2020 4:38 am REASON FOR STUDY: ams dementia cirrhosis COMPARISON: 03/05/2020 TECHNIQUE: Axial images acquired through the brain without intravenous contrast. Images reviewed wi th bone, brain and subdural windows. Additional sagittal and coronal reconstructions were generated. Images stored on PACS. All CT scanners at this facility use dose modulation, iterative reconstruction, and/or weight based d osing when appropriate to reduce radiation dose to as low as reasonably achievable (ALARA). [facility]: Dose Right [facility]: CareDose [facility]: Dose Right [facility]: Teradose 4D [facility]: [facility] RADIATION DOSE: mGy. LIMITATIONS: None. FINDINGS: VENTRICLES: Mildly prominent. CEREBRUM: No masses. No hemorrhage. No midline shift. Few scattered areas of low density in the wh ite matter most likely due to chronic micro-vascular ischemic change. No evidence for acute infarcti on. CEREBELLUM: No masses. No hemorrhage. No alteration of density. No evidence for acute infarction. EXTRAAXIAL SPACES: Mild age-related involutional change. Chronic left frontoparietal epidural hemorr james without mass effect. This is best visualized coronal reformat images 21-40. No acute fluid col lections. No masses. ORBITS AND GLOBE: No intra- or extraconal masses. Normal contour of globe without masses. CALVARIUM: No fracture. PARANASAL SINUSES: No fluid or mucosal thickening. SOFT TISSUES: No mass or hematoma. OTHER: No other significant finding. IMPRESSION: No acute intracranial abnormality. Background chronic left frontoparietal epidural hemo rrhage in the setting mild age-related involutional and chronic microvascular ischemic change. EVIDENCE OF ACUTE STROKE: NO. TECHNICAL DOCUMENTATION: JOB ID: [id number] Quality ID # [id number]: Final reports with documentation of one or more dose reduction techniques (e.g., Au tomated exposure control, adjustment of the mA and/or kV according to patient size, use of iterative reconstruction technique) 2010 [employer]- All Rights Reserved Reading location - IP/workstation name: [email or web address]
--- NOTE | 2020-03-24 05:30 | RADIOLOGY REPORT (SQ) ---
EXAM DESCRIPTION: CHEST SINGLE VIEW IMAGES COMPLETED DATE/TIME: 03/24/2020 5:18 am REASON FOR STUDY: REPOSITION OF NG TUBE COMPARISON: 03/24/2020 EXAM PARAMETERS: NUMBER OF VIEWS: One view. TECHNIQUE: Single frontal radiographic view of the chest acquired. RADIATION DOSE: NA LIMITATIONS: Patient motion and limited field of view FINDINGS: LUNGS AND PLEURA: Stable. MEDIASTINUM AND HILAR STRUCTURES: Stable. HEART AND VASCULAR STRUCTURES: Stable. BONES: No acute findings. HARDWARE: An enteric tube is seen along the expected course of the esophagus with the tip and proxima l port projecting subdiaphragmatically within the left upper quadrant. OTHER: No other significant finding. IMPRESSION: Enteric tube terminates subdiaphragmatically within the left upper quadrant. Otherwise stable exam. TECHNICAL DOCUMENTATION: JOB ID: [id number] 2010 [employer]- All Rights Reserved Reading location - IP/workstation name: [email or web address]
--- NOTE | 2020-03-24 05:37 | RADIOLOGY REPORT (SQ) ---
EXAM DESCRIPTION: CHEST SINGLE VIEW IMAGES COMPLETED DATE/TIME: 03/24/2020 4:56 am REASON FOR STUDY: dementia cirrhosis ams COMPARISON: 01/19/2016 EXAM PARAMETERS: NUMBER OF VIEWS: One view. TECHNIQUE: Single frontal radiographic view of the chest acquired. RADIATION DOSE: NA LIMITATIONS: None. FINDINGS: LUNGS AND PLEURA: The appearance of hazy opacification of the left upper lobe with is favo red to represent artifact on the basis of technique. No focal consolidation, pleural effusion, or pn eumothorax. MEDIASTINUM AND HILAR STRUCTURES: Stable. Ectatic thoracic aorta. HEART AND VASCULAR STRUCTURES: Heart normal in size. Normal vasculature. BONES: No acute findings. HARDWARE: None in the chest. OTHER: No other significant finding. IMPRESSION: No discrete radiographic evidence of acute cardiopulmonary abnormality. TECHNICAL DOCUMENTATION: JOB ID: [id number] 2010 [employer]- All Rights Reserved Reading location - IP/workstation name: [email or web address]
--- NOTE | 2020-03-24 05:51 | RADIOLOGY REPORT (SQ) ---
CHEST X-RAY 1 VIEW on 03/24/2020 at 4:33 AM CLINICAL INDICATION: NG tube placement COMPARISON: 03/24/2020 at 12:37 AM FINDINGS: This exam is more of an upper abdomen exam with the upper half of the chest not imaged. NG tube extends into the upper stomach in good position. Visualized lower lungs are clear. Visualized bowel gas pattern is unremarkable. IMPRESSION: NG tube in good position in the upper stomach.
[2020-03-24 05:55] LABS: URINE BARBITURATES SCREEN UNCONFIRMED POSITIVE
[2020-03-24 05:58] LABS: ACETAMINOPHEN < 10 ug/mL (10-30); SALICYLATE < 1.0 mg/dL (2.0-20.0)
[2020-03-24 06:42] LABS: INTERNATIONAL RATION (INR) 1.16; PARTIAL THROMBOPLASTIN TIME 23.9 SEC (23.5-35.8)
[2020-03-24] MEDS: LACTULOSE SYRUP 20 GM/30 ML UDCUP PO SCH ×5 (09:13→23:35)
[2020-03-24] MEDS: NORMAL SALINE 1000 ML 1,000 ML IV PRN (11:18)
[2020-03-24] MEDS: BUSPIRONE HCL 10 MG TABLET PO SCH ×2 (14:02→21:57)
--- NOTE | 2020-03-24 14:18 | EKG REPORT ---
SEVERITY:- DEFECTIVE ECG - PROBABLE LEFT VENTRICULAR HYPERTROPHY BASELINE ARTIFACT : Confirmed by: Jackie Brunner MD 24-Mar-2020 14:17:36
[2020-03-24] MEDS: CARBIDOPA/LEVODOPA 10-100 MG TABLET PO SCH ×2 (14:56→22:10)
[2020-03-24] MEDS ORDERED: DICLOFENAC SODIUM TOP PRN (15:40)
[2020-03-24] MEDS ORDERED: (PENDING PHARMACY ID) (Butalb/Acetaminophen/Caffeine [Butalb-Acetamin-Caff 50-325-40] 1 EA PO PRN (15:40)
[2020-03-24] MEDS ORDERED: BUTALB/ACETAMINOPHEN/CAFFEINE 1 TAB EACH PO PRN (15:44)
[2020-03-24] MEDS: SODIUM BICARBONATE 650 MG TABLET PO SCH (17:13)
[2020-03-24] MEDS ORDERED: LACTULOSE 10 GM/15 ML PO SCH (18:00)
[2020-03-24] MEDS ORDERED: LACTULOSE SYRUP 20 GM/30 ML UDCUP PO SCH (18:00)
--- NOTE | 2020-03-24 19:53 | PDOC CONSULTATION ---
Consultation Consult Date: 03/24/20 Provider Consulted: MCKAYLA AGUAYO History of Present Illness Admission Date/PCP: 03/24/20 05:28 DENISE PARISI MD History of Present Illness: LISA KHANNA is a 79 year old female Patient who was admitted on 03/24/2020 with hepatic encephalopathy. According to her family she had had altered mental status for about 2 days prior to presentation. She was diagnosed with hepatic encephalopathy on presentation. She was also in the hospital on 03/05/2020 with an episode of hepatic encephalopathy. There was no obvious etiology for her encephalopathy at the last admission. She has had 2 CAT scans of the head that has been unremarkable. Her liver function tests was unremarkable in February except for an AST of 66 and albumin of 2.9. Yesterday her bilirubin was 1.8 with a high calcium of 10.3 and albumin of 3.8. Her last abdominal ultrasound was in August which was unremarkable. No history is obtainable from patient at this time as she is still confused. She has been nonverbal all day until the last few hours. She has had 2 bowel movements today but they were not diarrhea. She could not tolerate an MRI of the head that was to be done tonight. Past Medical History Cardiac Medical History: Reports: Hyperlipidema, Hypertension Denies: Coronary Artery Disease, Myocardial Infarction Pulmonary Medical History: Denies: Asthma, Bronchitis, Chronic Obstructive Pulmonary Disease (COPD), Pneumonia, Tuberculosis Neurological Medical History: Reports: Migraine Denies: Seizures GI Medical History: Reports: Cirrhosis, Gastroesophageal Reflux Disease, Hepatitis Musculoskeltal Medical History: Reports: Arthritis Psychiatric Medical History: Reports: Dementia, Depression Hematology: Reports: Anemia Past Surgical History Past Surgical History: Reports: Section, Tubal Ligation Denies: Hysterectomy, Pacemaker Social History Smoking Status: Unknown if Ever Smoked Frequency of Alcohol Use: None Hx Recreational Drug Use: No Drugs: None Hx Prescription Drug Abuse: No Family History Family History: Reviewed & Not Pertinent Parental Family History Reviewed: No Children Family History Reviewed: NA Sibling(s) Family History Reviewed.: NA Medication/Allergy Home Medications: Amlodipine Besylate [Norvasc 2.5 mg Tablet] 5 mg PO Q12 11/30/17 Clonidine HCl [Catapres 0.2 mg Tablet] 0.2 mg PO QHS 11/30/17 Entecavir [Baraclude] 0.5 mg PO DAILY 11/30/17 Ergocalciferol (Vitamin D2) [Drisdol 50,000 unit (1.25MG) Capsule] 50,000 unit PO MO@1000 11/30/17 Ezetimibe [Zetia 10 mg Tablet] 10 mg PO DAILY 11/30/17 Lactulose [Constulose 10 gm/15 mL Oral Solution] 60 ml PO Q6 11/30/17 Omeprazole 20 mg PO Q6AM 11/30/17 Potassium Chloride [Klor-Con 10 Meq Tablet ER] 10 meq PO Q12 11/30/17 Rifaximin [Xifaxan 550 mg Tablet] 550 mg PO Q12 11/30/17 Butalb/Acetaminophen/Caffeine [Sawpqw-Gunscjjp-Txnq 50-325-40] 1 tab PO DAILYP PRN 03/05/20 Carbidopa/Levodopa [Carbidopa-Levodopa 10-100 Tab] 1 tab PO Q8 03/05/20 Levothyroxine Sodium [Synthroid 0.025 mg Tablet] 0.025 mg PO Q6AM 03/05/20 Sodium Bicarbonate [Sodium Bicarbonate 650 mg Tablet] 650 mg PO QPM 03/05/20 Buspirone HCl [Buspar 10 mg Tablet] 5 mg PO BID #30 tablet 03/09/20 Diclofenac Sodium [Arthritis Pain Reliever] 1 applic TP QIDP PRN 03/24/20 Allergies/Adverse Reactions: divalproex sodium [From Depakote] Adverse Reaction (Intermediate, Verified 03/09/20 08:59) BEE STING Adverse Reaction (Severe, Uncoded 03/09/20 08:59) Review of Systems ROS unobtainable: Due to mental status Physical Exam Vital Signs: Temp Pulse Resp BP Pulse Ox 97.9 F 110 H 21 H 156/91 H 100 03/24/20 19:27 03/24/20 19:27 03/24/20 19:27 03/24/20 19:27 03/24/20 19:27 Intake & Output 03/23/20 03/24/20 03/25/20 06:59 06:59 06:59 Intake Total 780 Balance 780 Weight 48.8 kg 51.5 kg Exam: General: Patient is alert but confused. HEENT: There is no pallor or jaundice. PERRLA. Oropharynx normal Respiratory: No chest deformity. No respiratory distress. Chest wall palpitation was unremarkable. Breath sounds were normal Cardiovascular: Heart sounds 1 and 2 normal with no murmurs. Abdominal: Not distended. Soft and nontender. Liver and spleen not palpable. No ascites demonstrated. Bowel sounds active. Rectal examination was deferred. Extremities: No edema Neurological: Normal speech. Grossly nonfocal Skin: No significant rash Results Laboratory Results: 03/23/20 23:50 03/23/20 23:50 03/23/20 03/23/20 03/23/20 23:50 23:50 23:50 WBC 6.3 RBC 4.58 Hgb 12.3 Hct 36.9 MCV 81 MCH 26.9 L MCHC 33.3 RDW 19.1 H Plt Count 109 L Seg Neutrophils % Not Reportable Sodium 141.6 Potassium 4.3 Chloride 114 H Carbon Dioxide 21 L Anion Gap 7 BUN 19 Creatinine 1.02 Est GFR ( Amer) > 60 Glucose 111 H Calcium 10.3 H Magnesium 2.4 H Total Bilirubin 1.8 H AST 68 H Alkaline Phosphatase 86 Ammonia Total Protein 7.6 Albumin 3.8 Urine Color YELLOW Urine Appearance SLIGHTLY-CLOUDY Urine pH 7.0 Ur Specific [place] 1.012 Urine Protein 100 H Urine Glucose (UA) NEGATIVE Urine Ketones NEGATIVE Urine Blood LARGE H Urine Nitrite NEGATIVE Ur Leukocyte Esterase NEGATIVE Urine WBC (Auto) 16 Urine RBC (Auto) >182 03/23/20 23:50 WBC RBC Hgb Hct MCV MCH MCHC RDW Plt Count Seg Neutrophils % Sodium Potassium Chloride Carbon Dioxide Anion Gap BUN Creatinine Est GFR ( Amer) Glucose Calcium Magnesium Total Bilirubin AST Alkaline Phosphatase Ammonia 80.5 H Total Protein Albumin Urine Color Urine Appearance Urine pH Ur Specific [place] Urine Protein Urine Glucose (UA) Urine Ketones Urine Blood Urine Nitrite Ur Leukocyte Esterase Urine WBC (Auto) Urine RBC (Auto) 03/23/20 23:50 Troponin I 0.032 Impressions: Head CT 03/24/20 00:18 IMPRESSION: No acute intracranial abnormality. Background chronic left frontoparietal epidural hemorrhage in the setting mild age-related involutional and chronic microvascular ischemic change. EVIDENCE OF ACUTE STROKE: NO. Chest X-Ray 03/24/20 00:20 IMPRESSION: No discrete radiographic evidence of acute cardiopulmonary abnormality. Assessment & Plan - Diagnosis (1) Hepatic encephalopathy Is this a current diagnosis for this admission?: Yes Plan: She has had 2 episodes of encephalopathy in less than a month. She used to have frequent encephalopathy but had actually been doing quite well for the last 1 to 2 years. There is no obvious instigating factor for her encephalopathy at this time. Her ultrasound of the liver was unremarkable in August but I will repeat that now. I saw her in the office on 03/10/2020 and there was a concern that she may not be on her entecavir. I will send her for hepatitis B DNA. I will increase her lactulose to every 2 hours until she has diarrhea and then 4 times a day thereafter. 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
--- NOTE | 2020-03-24 21:41 | PDOC H&P ---
History of Present Illness Admission Date/PCP: 03/24/20 05:28 DENISE PARISI MD History of Present Illness: LISA KHANNA is a 79 year old female, She has hepatitis B liver cirrhosis, she was recently admitted on March 05, 2020 when she presented with confusion, altered mental status felt to be due to hepatic encephalopathy. At that time no precipitating factor was identified, she is presented in similar fashion with acute confusion, found to have elevated serum ammonia level, imaging done in the ER was negative for any acute pathology. Past Medical History Cardiac Medical History: Reports: Hyperlipidema, Hypertension Neurological Medical History: Reports: Migraine Denies: Seizures GI Medical History: Reports: Cirrhosis, Gastroesophageal Reflux Disease, Hepatitis Musculoskeltal Medical History: Reports: Arthritis Psychiatric Medical History: Reports: Dementia, Depression Hematology: Reports: Anemia Past Surgical History Past Surgical History: Reports: Section, Tubal Ligation Social History Smoking Status: Unknown if Ever Smoked Frequency of Alcohol Use: None Hx Recreational Drug Use: No Drugs: None Hx Prescription Drug Abuse: No Family History Family History: Reviewed & Not Pertinent Parental Family History Reviewed: Yes Children Family History Reviewed: Yes Sibling(s) Family History Reviewed.: Yes Medication/Allergy Home Medications: Amlodipine Besylate [Norvasc 2.5 mg Tablet] 5 mg PO Q12 11/30/17 Clonidine HCl [Catapres 0.2 mg Tablet] 0.2 mg PO QHS 11/30/17 Entecavir [Baraclude] 0.5 mg PO DAILY 11/30/17 Ergocalciferol (Vitamin D2) [Drisdol 50,000 unit (1.25MG) Capsule] 50,000 unit PO MO@1000 11/30/17 Ezetimibe [Zetia 10 mg Tablet] 10 mg PO DAILY 11/30/17 Lactulose [Constulose 10 gm/15 mL Oral Solution] 60 ml PO Q6 11/30/17 Omeprazole 20 mg PO Q6AM 11/30/17 Potassium Chloride [Klor-Con 10 Meq Tablet ER] 10 meq PO Q12 11/30/17 Rifaximin [Xifaxan 550 mg Tablet] 550 mg PO Q12 11/30/17 Butalb/Acetaminophen/Caffeine [Rcgbul-Awywotag-Zqwx 50-325-40] 1 tab PO DAILYP PRN 03/05/20 Carbidopa/Levodopa [Carbidopa-Levodopa 10-100 Tab] 1 tab PO Q8 03/05/20 Levothyroxine Sodium [Synthroid 0.025 mg Tablet] 0.025 mg PO Q6AM 03/05/20 Sodium Bicarbonate [Sodium Bicarbonate 650 mg Tablet] 650 mg PO QPM 03/05/20 Buspirone HCl [Buspar 10 mg Tablet] 5 mg PO BID #30 tablet 03/09/20 Diclofenac Sodium [Arthritis Pain Reliever] 1 applic TP QIDP PRN 03/24/20 Allergies/Adverse Reactions: divalproex sodium [From Depakote] Adverse Reaction (Intermediate, Verified 03/09/20 08:59) BEE STING Adverse Reaction (Severe, Uncoded 03/09/20 08:59) Review of Systems ROS unobtainable: Due to mental status Physical Exam Vital Signs: Temp Pulse Resp BP Pulse Ox 97.9 F 110 H 21 H 156/91 H 100 03/24/20 20:30 03/24/20 19:27 03/24/20 19:27 03/24/20 19:27 03/24/20 19:27 Intake & Output 03/23/20 03/24/20 03/25/20 06:59 06:59 06:59 Intake Total 780 Balance 780 Weight 48.8 kg 51.5 kg General appearance: PRESENT: no acute distress Eye exam: PRESENT: PERRLA Respiratory exam: PRESENT: clear to auscultation karma Cardiovascular exam: PRESENT: +S1, +S2 GI/Abdominal exam: PRESENT: soft Neurological exam: PRESENT: alert Results Laboratory Results: 03/23/20 23:50 03/23/20 23:50 03/23/20 03/23/20 03/23/20 23:50 23:50 23:50 WBC 6.3 RBC 4.58 Hgb 12.3 Hct 36.9 MCV 81 MCH 26.9 L MCHC 33.3 RDW 19.1 H Plt Count 109 L Seg Neutrophils % Not Reportable Sodium 141.6 Potassium 4.3 Chloride 114 H Carbon Dioxide 21 L Anion Gap 7 BUN 19 Creatinine 1.02 Est GFR ( Amer) > 60 Glucose 111 H Calcium 10.3 H Magnesium 2.4 H Total Bilirubin 1.8 H AST 68 H Alkaline Phosphatase 86 Ammonia Total Protein 7.6 Albumin 3.8 Urine Color YELLOW Urine Appearance SLIGHTLY-CLOUDY Urine pH 7.0 Ur Specific [place] 1.012 Urine Protein 100 H Urine Glucose (UA) NEGATIVE Urine Ketones NEGATIVE Urine Blood LARGE H Urine Nitrite NEGATIVE Ur Leukocyte Esterase NEGATIVE Urine WBC (Auto) 16 Urine RBC (Auto) >182 03/23/20 23:50 WBC RBC Hgb Hct MCV MCH MCHC RDW Plt Count Seg Neutrophils % Sodium Potassium Chloride Carbon Dioxide Anion Gap BUN Creatinine Est GFR ( Amer) Glucose Calcium Magnesium Total Bilirubin AST Alkaline Phosphatase Ammonia 80.5 H Total Protein Albumin Urine Color Urine Appearance Urine pH Ur Specific [place] Urine Protein Urine Glucose (UA) Urine Ketones Urine Blood Urine Nitrite Ur Leukocyte Esterase Urine WBC (Auto) Urine RBC (Auto) 03/23/20 23:50 Troponin I 0.032 Impressions: Head CT 03/24/20 00:18 IMPRESSION: No acute intracranial abnormality. Background chronic left frontoparietal epidural hemorrhage in the setting mild age-related involutional and chronic microvascular ischemic change. EVIDENCE OF ACUTE STROKE: NO. Chest X-Ray 03/24/20 00:20 IMPRESSION: No discrete radiographic evidence of acute cardiopulmonary abnormality. Assessment & Plan - Diagnosis (1) Hepatic encephalopathy Is this a current diagnosis for this admission?: Yes Plan: Patient with hepatic encephalopathy, she is admitted for management, she was seen by Dr. Schmitt, councilman - Time Time Spent: Greater than 70 Minutes Medications reviewed and adjusted accordingly: Yes Anticipated Discharge Disposition: Home, Self Care Anticipated Discharge Timeframe: within 72 hours
[2020-03-24] MEDS: CLONIDINE HCL 0.2 MG TABLET PO SCH (21:58)
[2020-03-24] MEDS: AMLODIPINE BESYLATE 5 MG TABLET PO SCH (21:58)
[2020-03-24] MEDS: POTASSIUM CHLORIDE 10 MEQ TABLET.ER PO SCH (21:58)
[2020-03-24] MEDS ORDERED: AMLODIPINE BESYLATE 2.5 MG TABLET PO SCH (22:00)
[2020-03-24] MEDS: RIFAXIMIN 550 MG TABLET PO SCH (22:10)
[2020-03-25] MEDS: LACTULOSE SYRUP 20 GM/30 ML UDCUP PO SCH ×7 (01:46→21:48)
[2020-03-25] MEDS: NORMAL SALINE 1000 ML 1,000 ML IV PRN ×2 (03:59→21:49)
[2020-03-25] MEDS ORDERED: (PENDING PHARMACY ID) (Omeprazole [Omeprazole] 20 MG Capsule.Dr) PO SCH (06:00)
[2020-03-25] MEDS: LEVOTHYROXINE SODIUM 0.025 MG TABLET PO SCH (06:17)
[2020-03-25] MEDS: CARBIDOPA/LEVODOPA 10-100 MG TABLET PO SCH ×3 (06:17→21:49)
[2020-03-25] MEDS: PANTOPRAZOLE SODIUM 20 MG TABLET.DR PO SCH (06:17)
[2020-03-25 07:44] LABS: HEMOGLOBIN 11.9 g/dL (12.0-15.5); MEAN CORPUSCULAR HEMOGLOBIN 26.7 pg (27.0-33.4); MEAN CORPUSCULAR HGB CONC 32.9 g/dL (32.0-36.0); MEAN CORPUSCULAR VOLUME 81 fl (80-97); RED BLOOD COUNT 4.44 10^6/uL (3.72-5.28); RED CELL DISTRIBUTION WIDTH 19.3 % (11.5-14.0)
[2020-03-25 08:02] LABS: ALBUMIN 3.4 g/dL (3.5-5.0); ALKALINE PHOSPHATASE 85 U/L (38-126); ANION GAP 10 (5-19); ASPARTATE AMINO TRANSFERASE 84 U/L (14-36); BILIRUBIN,DIRECT 0.4 mg/dL (0.0-0.4); BILIRUBIN,TOTAL 1.6 mg/dL (0.2-1.3); BLOOD UREA NITROGEN 15 mg/dL (7-20); CALCIUM 9.6 mg/dL (8.4-10.2); CARBON DIOXIDE 18 mmol/L (22-30); CHLORIDE 119 mmol/L (98-107); GLUCOSE 105 mg/dL (75-110); POTASSIUM 3.8 mmol/L (3.6-5.0); TOTAL PROTEIN 6.7 g/dL (6.3-8.2)
[2020-03-25 08:25] LABS: PLATELET COUNT 86 10^3/uL (150-450)
--- NOTE | 2020-03-25 08:28 | RADIOLOGY REPORT (SQ) ---
EXAM DESCRIPTION: U/S ABDOMEN LIMITED W/O DOP IMAGES COMPLETED DATE/TIME: 03/24/2020 9:41 pm REASON FOR STUDY: Cirrhosis COMPARISON: Ultrasound of the abdomen from 11/21/2019. TECHNIQUE: Dynamic and static grayscale images acquired of the abdomen and recorded on PACS. Vidalo earl selected color Doppler and spectral images recorded. LIMITATIONS: None. FINDINGS: PANCREAS: The visualized portions of the pancreas appear normal. LIVER: Heterogeneous echotexture of hepatic parenchyma. LIVER VASCULATURE: Normal hepatopetal directional flow in the main portal vein. GALLBLADDER: The gallbladder wall measures 2 mm in thickness. The echogenic focus within the gallbla dder lumen could represent a polyp or a nonshadowing calculus. There is no pericholecystic fluid or sludge. ULTRASOUND-DETECTED MORGAN'S SIGN: Negative. INTRAHEPATIC DUCTS AND COMMON DUCT: The common bile duct measures 5 mm in diameter. There is no dila tation of the intrahepatic ducts. INFERIOR VENA CAVA: Not assessed. AORTA: No aneurysm of the proximal and mid abdominal aorta. The distal abdominal aorta is obscured b y overlying bowel. RIGHT KIDNEY: The right kidney measures 8 cm in length. There is a echogenic focus with twinkle art ifact in the interpolar portion of the kidney which could represent a calculus. There is no hydronep hrosis. PERITONEAL AND RIGHT PLEURAL SPACE: No ascites or effusions. OTHER: No other findings. IMPRESSION: 1. Unchanged heterogeneous echotexture of hepatic parenchyma. 2. Echogenic focus within the gallbladder lumen that could represent a polyp or a non-shadowing calcu simran (the marketing education teacher was unable to turn the patient into the left lateral decubitus position). 3. 10 mm echogenic focus with twinkle artifact in the interpolar portion of the right kidney that cou ld represent a calculus. TECHNICAL DOCUMENTATION: JOB ID: [id number] 2010 [employer]- All Rights Reserved Reading location - IP/workstation name: [email or web address]
[2020-03-25 08:29] LABS: ABSOLUTE LYMPHOCYTES# (MANUAL) 1.9 10^3/uL (0.5-4.7); ABSOLUTE MONOCYTES # (MANUAL) 0.5 10^3/uL (0.1-1.4); BASOPHILS % (MANUAL) 0 % (0-2); EOSINOPHILS % (MANUAL) 1 % (0-6); LYMPHOCYTES % (MANUAL) 33 % (13-45); METAMYELOCYTES % (MANUAL) 2 % (0-1); MONOCYTES % (MANUAL) 9 % (3-13); SEGMENTED NEUTROPHILS % (MAN) 50 % (42-78); TOTAL CELLS COUNTED 100
[2020-03-25 08:31] LABS: ANISOCYTOSIS 2+; PLATELET COMMENT DECREASED; POIKILOCYTOSIS 2+; POLYCHROMASIA 1+; TARGET CELLS 2+
[2020-03-25 08:32] LABS: OVALOCYTES 1+; TEAR DROP CELLS 1+
[2020-03-25] MEDS: POTASSIUM CHLORIDE 10 MEQ TABLET.ER PO SCH ×2 (09:19→21:49)
[2020-03-25] MEDS: AMLODIPINE BESYLATE 5 MG TABLET PO SCH ×2 (09:21→21:48)
[2020-03-25] MEDS: RIFAXIMIN 550 MG TABLET PO SCH ×2 (09:23→21:49)
[2020-03-25] MEDS: EZETIMIBE 10 MG TABLET PO SCH (09:25)
[2020-03-25] MEDS: BUSPIRONE HCL 10 MG TABLET PO SCH ×2 (09:26→21:48)
[2020-03-25] MEDS ORDERED: ENTECAVIR 0.5 MG PO SCH (10:00)
--- NOTE | 2020-03-25 14:12 | PDOC PROGRESS REPORT ---
Subjective Date:: 03/25/20 Subjective:: Patient is feeling much better back to the baseline more alert awake oriented Denied any chest pain no shortness of breat Reason For Visit: HEPATIC ENCEPHALOPATHY,ALTERED MENTAL STATUS Physical Exam Vital Signs: Temp Pulse Resp BP Pulse Ox 98.4 F 94 17 129/66 H 100 03/25/20 10:00 03/25/20 07:56 03/25/20 07:56 03/25/20 07:56 03/25/20 07:56 Intake & Output 03/24/20 03/25/20 03/26/20 06:59 06:59 06:59 Intake Total 1780 130 Balance 1780 130 Weight 48.8 kg 49.9 kg 50.9 kg General appearance: PRESENT: no acute distress, well-developed, well-nourished Head exam: PRESENT: atraumatic, normocephalic Eye exam: PRESENT: conjunctiva pink, EOMI, PERRLA. ABSENT: scleral icterus Ear exam: PRESENT: normal external ear exam Mouth exam: PRESENT: moist, tongue midline Neck exam: PRESENT: full ROM. ABSENT: carotid bruit, JVD, lymphadenopathy, thyromegaly Cardiovascular exam: PRESENT: RRR. ABSENT: diastolic murmur, rubs, systolic murmur Pulses: PRESENT: normal dorsalis pedis pul, +2 pedal pulses bilateral Vascular exam: PRESENT: normal capillary refill GI/Abdominal exam: PRESENT: normal bowel sounds, soft. ABSENT: distended, guarding, mass, organolmegaly, rebound, tenderness Rectal exam: PRESENT: deferred Neurological exam: PRESENT: alert, awake, oriented to person, oriented to place, oriented to time, oriented to situation, CN II-XII grossly intact. ABSENT: motor sensory deficit Psychiatric exam: PRESENT: appropriate affect, normal mood. ABSENT: homicidal ideation, suicidal ideation Skin exam: PRESENT: dry, intact, warm. ABSENT: cyanosis, rash Results Laboratory Results: 03/25/20 06:30 03/25/20 06:30 03/25/20 03/25/20 03/25/20 06:30 06:30 09:25 WBC 5.0 RBC 4.44 Hgb 11.9 L Hct 36.0 MCV 81 MCH 26.7 L MCHC 32.9 RDW 19.3 H Plt Count 86 L Seg Neutrophils % Not Reportable Sodium 146.9 H Potassium 3.8 Chloride 119 H Carbon Dioxide 18 L Anion Gap 10 BUN 15 Creatinine 0.78 Est GFR ( Amer) > 60 Glucose 105 Calcium 9.6 Total Bilirubin 1.6 H AST 84 H Alkaline Phosphatase 85 Ammonia 33.4 H Total Protein 6.7 Albumin 3.4 L 03/23/20 23:50 Troponin I 0.032 Impressions: Abdomen Ultrasound 03/24/20 00:00 IMPRESSION: 1. Unchanged heterogeneous echotexture of hepatic parenchyma. 2. Echogenic focus within the gallbladder lumen that could represent a polyp or a non-shadowing calculus (the race car driver was unable to turn the patient into the left lateral decubitus position). 3. 10 mm echogenic focus with twinkle artifact in the interpolar portion of the right kidney that could represent a calculus. Head CT 03/24/20 00:18 IMPRESSION: No acute intracranial abnormality. Background chronic left frontoparietal epidural hemorrhage in the setting mild age-related involutional and chronic microvascular ischemic change. EVIDENCE OF ACUTE STROKE: NO. Chest X-Ray 03/24/20 00:20 IMPRESSION: No discrete radiographic evidence of acute cardiopulmonary abnormality. 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 Is this a current diagnosis for this admission?: Yes (4) Cirrhosis of liver due to hepatitis B Is this a current diagnosis for this admission?: Yes (5) Dehydration Is this a current diagnosis for this admission?: Yes (6) Hyperammonemia Is this a current diagnosis for this admission?: Yes (8) Hypertension Qualifiers: Hypertension type: essential hypertension Is this a current diagnosis for this admission?: Yes (9) Migraine Qualifiers: Migraine type: unspecified Intractability: not intractable Is this a current diagnosis for this admission?: Yes - Time Time Spent with patient: 15-24 minutes Level of Care: TELE Medications reviewed and adjusted accordingly: Yes Anticipated discharge: Other Anticipated DC Timeframe: Other - Plan Summary Plan Summary: Patient's confusion is related to the hepatic encephalopathy now is getting better continues to lactulose get the physical therapy evaluations continues IV fluid
[2020-03-25] MEDS: SODIUM BICARBONATE 650 MG TABLET PO SCH (17:16)
[2020-03-25] MEDS: CLONIDINE HCL 0.2 MG TABLET PO SCH (21:49)
[2020-03-26] MEDS: LACTULOSE SYRUP 20 GM/30 ML UDCUP PO SCH ×5 (02:25→18:24)
[2020-03-26] MEDS: LEVOTHYROXINE SODIUM 0.025 MG TABLET PO SCH (06:25)
[2020-03-26] MEDS: CARBIDOPA/LEVODOPA 10-100 MG TABLET PO SCH ×3 (06:25→22:08)
[2020-03-26] MEDS: PANTOPRAZOLE SODIUM 20 MG TABLET.DR PO SCH (06:26)
[2020-03-26 06:54] LABS: ANION GAP 6 (5-19); BLOOD UREA NITROGEN 10 mg/dL (7-20); CALCIUM 9.2 mg/dL (8.4-10.2); CARBON DIOXIDE 18 mmol/L (22-30); CHLORIDE 116 mmol/L (98-107); GLUCOSE 103 mg/dL (75-110); POTASSIUM 4.1 mmol/L (3.6-5.0)
[2020-03-26 07:10] LABS: AFP SERUM TUMOR MARKER 6.1 ng/mL (0.0-8.3)
[2020-03-26] MEDS: RIFAXIMIN 550 MG TABLET PO SCH ×2 (09:28→22:09)
[2020-03-26] MEDS: EZETIMIBE 10 MG TABLET PO SCH (09:28)
[2020-03-26] MEDS: POTASSIUM CHLORIDE 10 MEQ TABLET.ER PO SCH ×2 (09:28→22:09)
[2020-03-26] MEDS: BUSPIRONE HCL 10 MG TABLET PO SCH ×2 (09:29→22:09)
[2020-03-26] MEDS: AMLODIPINE BESYLATE 5 MG TABLET PO SCH ×2 (09:29→22:09)
--- NOTE | 2020-03-26 11:33 | PDOC PROGRESS REPORT ---
Subjective Date:: 03/26/20 Subjective:: Patient is feeling much better Patient's denied any chest pain no shortness of the breath Is alert awake and oriented x4 Walk with the physical therapy Reason For Visit: HEPATIC ENCEPHALOPATHY,ALTERED MENTAL STATUS Physical Exam Vital Signs: Temp Pulse Resp BP Pulse Ox 97.7 F 91 18 125/61 100 03/26/20 07:34 03/26/20 07:34 03/26/20 07:34 03/26/20 07:34 03/26/20 07:34 Intake & Output 03/25/20 03/26/20 03/27/20 06:59 06:59 06:59 Intake Total 1779 2049 Balance 1779 2049 Weight 49.9 kg 53.8 kg General appearance: PRESENT: no acute distress, well-developed, well-nourished Head exam: PRESENT: atraumatic, normocephalic Eye exam: PRESENT: conjunctiva pink, EOMI, PERRLA. ABSENT: scleral icterus Ear exam: PRESENT: normal external ear exam Mouth exam: PRESENT: moist, tongue midline Neck exam: PRESENT: full ROM. ABSENT: carotid bruit, JVD, lymphadenopathy, thyromegaly Respiratory exam: PRESENT: clear to auscultation karma Cardiovascular exam: PRESENT: RRR. ABSENT: diastolic murmur, rubs, systolic murmur Pulses: PRESENT: normal dorsalis pedis pul, +2 pedal pulses bilateral Vascular exam: PRESENT: normal capillary refill GI/Abdominal exam: PRESENT: normal bowel sounds, soft. ABSENT: distended, guarding, mass, organolmegaly, rebound, tenderness Rectal exam: PRESENT: deferred Musculoskeletal exam: PRESENT: ambulatory Neurological exam: PRESENT: alert, awake, oriented to person, oriented to place, oriented to time, oriented to situation, CN II-XII grossly intact. ABSENT: motor sensory deficit Psychiatric exam: PRESENT: appropriate affect, normal mood. ABSENT: homicidal ideation, suicidal ideation Skin exam: PRESENT: dry, intact, warm. ABSENT: cyanosis, rash Results Laboratory Results: 03/25/20 06:30 03/26/20 05:58 03/26/20 05:58 Sodium 139.5 Potassium 4.1 Chloride 116 H Carbon Dioxide 18 L Anion Gap 6 BUN 10 Creatinine 0.84 Est GFR ( Amer) > 60 Glucose 103 Calcium 9.2 03/24/20 00:30 Catheterized Urine Urine Culture - Final NO GROWTH 2 DAYS 03/23/20 23:50 Troponin I 0.032 Impressions: Abdomen Ultrasound 03/24/20 00:00 IMPRESSION: 1. Unchanged heterogeneous echotexture of hepatic parenchyma. 2. Echogenic focus within the gallbladder lumen that could represent a polyp or a non-shadowing calculus (the char dust cleaner and salvager was unable to turn the patient into the left lateral decubitus position). 3. 10 mm echogenic focus with twinkle artifact in the interpolar portion of the right kidney that could represent a calculus. Head CT 03/24/20 00:18 IMPRESSION: No acute intracranial abnormality. Background chronic left frontoparietal epidural hemorrhage in the setting mild age-related involutional and chronic microvascular ischemic change. EVIDENCE OF ACUTE STROKE: NO. Chest X-Ray 03/24/20 00:20 IMPRESSION: No discrete radiographic evidence of acute cardiopulmonary abnormality. 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 Is this a current diagnosis for this admission?: Yes (4) Cirrhosis of liver due to hepatitis B Is this a current diagnosis for this admission?: Yes (5) Dehydration Is this a current diagnosis for this admission?: Yes (6) Hyperammonemia Is this a current diagnosis for this admission?: Yes (8) Hypertension Qualifiers: Hypertension type: essential hypertension Is this a current diagnosis for this admission?: Yes (9) Migraine Qualifiers: Migraine type: unspecified Intractability: not intractable Is this a current diagnosis for this admission?: Yes - Time Time Spent with patient: 15-24 minutes Level of Care: IMCU Medications reviewed and adjusted accordingly: Yes Anticipated discharge: Home with Homehealth Anticipated DC Timeframe: within 24 hours - Plan Summary Plan Summary: The patient is remained stable hopefully discharge tomorrow with home health and physical therapy
[2020-03-26] MEDS: SODIUM BICARBONATE 650 MG TABLET PO SCH (18:24)
[2020-03-26] MEDS: NORMAL SALINE 1000 ML 1,000 ML IV PRN (18:29)
--- NOTE | 2020-03-26 19:57 | PDOC PROGRESS REPORT ---
Subjective Date:: 03/26/20 Subjective:: Patient was admitted with hepatic encephalopathy. She has been doing a lot bett er mentally and she is currently alert and oriented x3. She has had 4-5 loose bowel movements today and continues on lactulose every 4 with rifaximin twice daily. She denies abdominal pain Reason For Visit: HEPATIC ENCEPHALOPATHY,ALTERED MENTAL STATUS Physical Exam Vital Signs: Temp Pulse Resp BP Pulse Ox 97.8 F 91 18 121/58 L 100 03/26/20 15:19 03/26/20 15:19 03/26/20 15:19 03/26/20 15:19 03/26/20 15:19 Intake & Output 03/25/20 03/26/20 03/27/20 06:59 06:59 06:59 Intake Total 1779 2049 136 Balance 1779 2049 136 Weight 49.9 kg 53.8 kg Exam: General: Patient is alert HEENT: There is no pallor or jaundice. PERRLA. Oropharynx normal Respiratory: No chest deformity. No respiratory distress. Chest wall palpitation was unremarkable. Breath sounds were normal Cardiovascular: Heart sounds 1 and 2 normal with no murmurs. Abdominal: Not distended. Soft and nontender. Liver and spleen not palpable. No ascites demonstrated. Bowel sounds active. Rectal examination was deferred. Extremities: No edema Neurological: Alert and oriented x4. Grossly nonfocal. Normal speech Skin: No significant rash Psychological: Normal affect Results Laboratory Results: 03/25/20 06:30 03/26/20 05:58 03/26/20 05:58 Sodium 139.5 Potassium 4.1 Chloride 116 H Carbon Dioxide 18 L Anion Gap 6 BUN 10 Creatinine 0.84 Est GFR ( Amer) > 60 Glucose 103 Calcium 9.2 03/24/20 00:30 Catheterized Urine Urine Culture - Final NO GROWTH 2 DAYS 03/23/20 23:50 Troponin I 0.032 Impressions: Abdomen Ultrasound 03/24/20 00:00 IMPRESSION: 1. Unchanged heterogeneous echotexture of hepatic parenchyma. 2. Echogenic focus within the gallbladder lumen that could represent a polyp or a non-shadowing calculus (the physical therapy instructor was unable to turn the patient into the left lateral decubitus position). 3. 10 mm echogenic focus with twinkle artifact in the interpolar portion of the right kidney that could represent a calculus. Head CT 03/24/20 00:18 IMPRESSION: No acute intracranial abnormality. Background chronic left frontoparietal epidural hemorrhage in the setting mild age-related involutional and chronic microvascular ischemic change. EVIDENCE OF ACUTE STROKE: NO. Chest X-Ray 03/24/20 00:20 IMPRESSION: No discrete radiographic evidence of acute cardiopulmonary abnormality. Assessment & Plan - Diagnosis (1) Hepatic encephalopathy Is this a current diagnosis for this admission?: Yes Plan: She will continue with the lactulose but I reduced the dose to 3 times a day. She will also stay on rifaximin twice a day. No obvious source is identified for her encephalopathy. Her ultrasound was unremarkable and AFP was also normal. 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
[2020-03-26] MEDS: CLONIDINE HCL 0.2 MG TABLET PO SCH (22:08)
[2020-03-27] MEDS: LEVOTHYROXINE SODIUM 0.025 MG TABLET PO SCH (06:10)
[2020-03-27] MEDS: CARBIDOPA/LEVODOPA 10-100 MG TABLET PO SCH (06:10)
[2020-03-27] MEDS: PANTOPRAZOLE SODIUM 20 MG TABLET.DR PO SCH (06:10)
[2020-03-27 07:31] LABS: BLOOD UREA NITROGEN 9 mg/dL (7-20); CALCIUM 8.8 mg/dL (8.4-10.2); GLUCOSE 92 mg/dL (75-110); POTASSIUM 4.1 mmol/L (3.6-5.0)
[2020-03-27 07:37] LABS: CARBON DIOXIDE 19 mmol/L (22-30); CHLORIDE 116 mmol/L (98-107)
[2020-03-27 07:39] LABS: ANION GAP 3 (5-19)
[2020-03-27] MEDS: NORMAL SALINE 1000 ML 1,000 ML IV PRN (07:49)
[2020-03-27 08:04] VITALS: BP 116/59
[2020-03-27] MEDS: AMLODIPINE BESYLATE 5 MG TABLET PO SCH (09:16)
[2020-03-27] MEDS: RIFAXIMIN 550 MG TABLET PO SCH (09:17)
[2020-03-27] MEDS: SODIUM BICARBONATE 650 MG TABLET PO SCH (09:17)
[2020-03-27] MEDS: BUSPIRONE HCL 10 MG TABLET PO SCH (09:17)
[2020-03-27] MEDS: POTASSIUM CHLORIDE 10 MEQ TABLET.ER PO SCH (09:17)
[2020-03-27] MEDS: EZETIMIBE 10 MG TABLET PO SCH (09:17)
[2020-03-27] MEDS ORDERED: LACTULOSE SYRUP 20 GM/30 ML UDCUP PO SCH (10:00)
--- NOTE | 2020-03-27 12:35 | PDOC DISCHARGE SUMMARY ---
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 Is this a current diagnosis for this admission?: Yes (5) Dehydration Is this a current diagnosis for this admission?: Yes (6) Hyperammonemia Is this a current diagnosis for this admission?: Yes (8) Hypertension Is this a current diagnosis for this admission?: Yes (9) Migraine Is this a current diagnosis for this admission?: Yes - Additional Information Discharge Diet: As Tolerated Discharge Activity: Activity As Tolerated Referrals: MCKAYLA AGUAYO MD [ACTIVE STAFF] - 06/04/20 2:15 pm DENISE PARISI MD [Primary Care Provider] - 04/01/20 11:00 am (After Ernst ) Home Medications: Amlodipine Besylate [Norvasc 2.5 mg Tablet] 5 mg PO Q12 11/30/17 Clonidine HCl [Catapres 0.2 mg Tablet] 0.2 mg PO QHS 11/30/17 Entecavir [Baraclude] 0.5 mg PO DAILY 11/30/17 Ergocalciferol (Vitamin D2) [Drisdol 50,000 unit (1.25MG) Capsule] 50,000 unit PO MO@1000 11/30/17 Ezetimibe [Zetia 10 mg Tablet] 10 mg PO DAILY 11/30/17 Lactulose [Constulose 10 gm/15 mL Oral Solution] 60 ml PO Q6 11/30/17 Omeprazole 20 mg PO Q6AM 11/30/17 Potassium Chloride [Klor-Con 10 Meq Tablet ER] 10 meq PO Q12 11/30/17 Rifaximin [Xifaxan 550 mg Tablet] 550 mg PO Q12 11/30/17 Butalb/Acetaminophen/Caffeine [Mtysrc-Prduycbe-Snmb 50-325-40] 1 tab PO DAILYP PRN 03/05/20 Carbidopa/Levodopa [Carbidopa-Levodopa 10-100 Tab] 1 tab PO Q8 03/05/20 Levothyroxine Sodium [Synthroid 0.025 mg Tablet] 0.025 mg PO Q6AM 03/05/20 Sodium Bicarbonate [Sodium Bicarbonate 650 mg Tablet] 650 mg PO QPM 03/05/20 Buspirone HCl [Buspar 10 mg Tablet] 5 mg PO BID #30 tablet 03/09/20 Diclofenac Sodium [Arthritis Pain Reliever] 1 applic TP QIDP PRN 03/24/20 History of Present Illiness History of Present Illness: LISA KHANNA is a 79 year old female Patient was admitted for the altered mental status and hepatic encephalopathy Hospital Course Hospital Course: This is a 79-year-old female's with a history of the hepatic encephalopathy chronic hepatitis currently see Dr. NICE came to the altered mental status and patient's ammonia level was elevated patient was put in the hospital give her lactulose and patient responds very well Patient CT of the head was negative patient other blood work culture is all negatives Seen by Dr. gAuayo Patient is back to the baseline see the physical therapy patient is discharged home with home health and physical therapy continues on lactulose 3 times a day Physical Exam Vital Signs: Temp Pulse Resp BP Pulse Ox 97.7 F 95 18 116/59 L 100 03/27/20 12:06 03/27/20 12:06 03/27/20 12:06 03/27/20 12:06 03/27/20 12:06 Intake & Output 03/26/20 03/27/20 03/28/20 06:59 06:59 06:59 Intake Total 2049 1360 1000 Balance 2049 1360 1000 Weight 53.8 kg 54.4 kg General appearance: PRESENT: no acute distress, well-developed, well-nourished Head exam: PRESENT: atraumatic, normocephalic Eye exam: PRESENT: conjunctiva pink, EOMI, PERRLA. ABSENT: scleral icterus Ear exam: PRESENT: normal external ear exam Mouth exam: PRESENT: moist, tongue midline Neck exam: ABSENT: carotid bruit, JVD, lymphadenopathy, thyromegaly Respiratory exam: PRESENT: clear to auscultation karma. ABSENT: rales, rhonchi, wheezes Cardiovascular exam: PRESENT: RRR. ABSENT: diastolic murmur, rubs, systolic murmur Pulses: PRESENT: normal dorsalis pedis pul Vascular exam: PRESENT: normal capillary refill GI/Abdominal exam: PRESENT: normal bowel sounds, soft. ABSENT: distended, guarding, mass, organolmegaly, rebound, tenderness Rectal exam: PRESENT: deferred Extremities exam: PRESENT: full ROM. ABSENT: calf tenderness, clubbing, pedal edema Neurological exam: PRESENT: alert, awake, oriented to person, oriented to place, oriented to time, oriented to situation, CN II-XII grossly intact. ABSENT: motor sensory deficit Psychiatric exam: PRESENT: appropriate affect, normal mood. ABSENT: homicidal ideation, suicidal ideation Skin exam: PRESENT: dry, intact, warm. ABSENT: cyanosis, rash Results Laboratory Results: WBC 5.0 10^3/uL (4.0-10.5) 03/25/20 06:30 RBC 4.44 10^6/uL (3.72-5.28) 03/25/20 06:30 Hgb 11.9 g/dL (12.0-15.5) L 03/25/20 06:30 Hct 36.0 % (36.0-47.0) 03/25/20 06:30 MCV 81 fl (80-97) 03/25/20 06:30 MCH 26.7 pg (27.0-33.4) L 03/25/20 06:30 MCHC 32.9 g/dL (32.0-36.0) 03/25/20 06:30 RDW 19.3 % (11.5-14.0) H 03/25/20 06:30 Plt Count 86 10^3/uL (150-450) L 03/25/20 06:30 Lymph % (Auto) Not Reportable 03/25/20 06:30 [place] % (Auto) Not Reportable 03/25/20 06:30 Eos % (Auto) Not Reportable 03/25/20 06:30 Baso % (Auto) Not Reportable 03/25/20 06:30 Absolute Neuts (auto) Not Reportable 03/25/20 06:30 Absolute Lymphs (auto) Not Reportable 03/25/20 06:30 Absolute Monos (auto) Not Reportable 03/25/20 06:30 Absolute Eos (auto) Not Reportable 03/25/20 06:30 Absolute Basos (auto) Not Reportable 03/25/20 06:30 Total Counted 100 03/25/20 06:30 Seg Neutrophils % Not Reportable 03/25/20 06:30 Seg Neuts % (Manual) 50 % (42-78) 03/25/20 06:30 Band Neutrophils % 2 % (3-5) L 03/23/20 23:50 Lymphocytes % (Manual) 33 % (13-45) 03/25/20 06:30 Atypical Lymphs % 5 % (0) 03/25/20 06:30 Monocytes % (Manual) 9 % (3-13) 03/25/20 06:30 Eosinophils % (Manual) 1 % (0-6) 03/25/20 06:30 Basophils % (Manual) 0 % (0-2) 03/25/20 06:30 Metamyelocytes % 2 % (0-1) H 03/25/20 06:30 Abs Neuts (Manual) 2.6 10^3/uL (1.7-8.2) 03/25/20 06:30 Abs Lymphs (Manual) 1.9 10^3/uL (0.5-4.7) 03/25/20 06:30 Abs Monocytes (Manual) 0.5 10^3/uL (0.1-1.4) 03/25/20 06:30 Absolute Eos (Manual) 0.1 10^3/uL (0.0-0.6) 03/25/20 06:30 Abs Basophils (Manual) 0.0 10^3/uL (0.0-0.2) 03/25/20 06:30 Toxic Granulation SLIGHT 03/23/20 23:50 Platelet Comment DECREASED 03/25/20 06:30 Polychromasia 1+ 03/25/20 06:30 Hypochromasia SLIGHT 03/23/20 23:50 Poikilocytosis 2+ 03/25/20 06:30 Anisocytosis 2+ 03/25/20 06:30 Microcytosis SLIGHT 03/23/20 23:50 Target Cells 2+ 03/25/20 06:30 Tear Drop Cells 1+ 03/25/20 06:30 Ovalocytes 1+ 03/25/20 06:30 PT 15.0 SEC (11.4-15.4) 03/23/20 23:50 INR 1.16 03/23/20 23:50 APTT 23.9 SEC (23.5-35.8) 03/23/20 23:50 Sodium 138.4 mmol/L (137-145) 03/27/20 05:47 Potassium 4.1 mmol/L (3.6-5.0) 03/27/20 05:47 Chloride 116 mmol/L (98-107) H 03/27/20 05:47 Carbon Dioxide 19 mmol/L (22-30) L 03/27/20 05:47 Anion Gap 3 (5-19) L 03/27/20 05:47 BUN 9 mg/dL (7-20) 03/27/20 05:47 Creatinine 0.76 mg/dL (0.52-1.25) 03/27/20 05:47 Est GFR ( Amer) > 60 (>60) 03/27/20 05:47 Est GFR (MDRD) Non-Af > 60 (>60) 03/27/20 05:47 Glucose 92 mg/dL (75-110) 03/27/20 05:47 POC Glucose 105 mg/dL (70-110) 03/24/20 05:21 Calcium 8.8 mg/dL (8.4-10.2) 03/27/20 05:47 Magnesium 2.4 mg/dL (1.6-2.3) H 03/23/20 23:50 Total Bilirubin 1.6 mg/dL (0.2-1.3) H 03/25/20 06:30 Direct Bilirubin 0.4 mg/dL (0.0-0.4) 03/25/20 06:30 Neonat Total Bilirubin Not Reportable 03/25/20 06:30 Neonat Direct Bilirubin Not Reportable 03/25/20 06:30 Neonat Indirect Bili Not Reportable 03/25/20 06:30 AST 84 U/L (14-36) H 03/25/20 06:30 ALT 27 U/L (<35) 03/25/20 06:30 Alkaline Phosphatase 85 U/L (38-126) 03/25/20 06:30 Ammonia 33.4 umol/L (9-33) H 03/25/20 09:25 Troponin I 0.032 ng/mL 03/23/20 23:50 Total Protein 6.7 g/dL (6.3-8.2) 03/25/20 06:30 Albumin 3.4 g/dL (3.5-5.0) L 03/25/20 06:30 Tumor Marker AFP 6.1 ng/mL (0.0-8.3) 03/25/20 06:30 Urine Color YELLOW 03/23/20 23:50 Urine Appearance SLIGHTLY-CLOUDY 03/23/20 23:50 Urine pH 7.0 (5.0-9.0) 03/23/20 23:50 Ur Specific [place] 1.012 03/23/20 23:50 Urine Protein 100 mg/dL (NEGATIVE) H 03/23/20 23:50 Urine Glucose (UA) NEGATIVE mg/dL (NEGATIVE) 03/23/20 23:50 Urine Ketones NEGATIVE mg/dL (NEGATIVE) 03/23/20 23:50 Urine Blood LARGE (NEGATIVE) H 03/23/20 23:50 Urine Nitrite NEGATIVE (NEGATIVE) 03/23/20 23:50 Urine Bilirubin NEGATIVE (NEGATIVE) 03/23/20 23:50 Urine Urobilinogen NEGATIVE mg/dL (<2.0) 03/23/20 23:50 Ur Leukocyte Esterase NEGATIVE (NEGATIVE) 03/23/20 23:50 Urine WBC (Auto) 16 /HPF 03/23/20 23:50 Urine RBC (Auto) >182 /HPF 03/23/20 23:50 U Hyaline Cast (Auto) 3 /LPF 03/23/20 23:50 Calcium Oxalate Cr Auto MANY /HPF 03/23/20 23:50 Urine Mucus (Auto) RARE /LPF 03/23/20 23:50 Urine Ascorbic Acid NEGATIVE (NEGATIVE) 03/23/20 23:50 Salicylates < 1.0 mg/dL (2.0-20.0) L 03/23/20 23:50 Urine Opiates Screen NEGATIVE 03/23/20 23:50 Urine Methadone Screen NEGATIVE 03/23/20 23:50 Acetaminophen < 10 ug/mL (10-30) L 03/23/20 23:50 Ur Barbiturates Screen UNCONFIRMED POSITIVE 03/23/20 23:50 Ur Phencyclidine Scrn NEGATIVE 03/23/20 23:50 Ur Amphetamines Screen NEGATIVE 03/23/20 23:50 U Benzodiazepines Scrn NEGATIVE 03/23/20 23:50 Urine Cocaine Screen NEGATIVE 03/23/20 23:50 U Marijuana (THC) Screen NEGATIVE 03/23/20 23:50 Serum Alcohol < 10 mg/dL (NONE DETECTED) 03/23/20 23:50 COVID-19 Source See comment 03/24/20 23:55 COVID-19 ([facility]) Not Detected (Not Detect) 03/24/20 23:55 Hep B DNA Quant (PCR) TNP 03/25/20 06:30 Hep B DNA (Units/mL) <10 IU/mL (.) 03/25/20 06:30 Hep B DNA Test Info Comment (.) 03/25/20 06:30 03/23/20 23:50 Troponin I 0.032 Impressions: Abdomen Ultrasound 03/24/20 00:00 IMPRESSION: 1. Unchanged heterogeneous echotexture of hepatic parenchyma. 2. Echogenic focus within the gallbladder lumen that could represent a polyp or a non-shadowing calculus (the methods specialist engineer was unable to turn the patient into the left lateral decubitus position). 3. 10 mm echogenic focus with twinkle artifact in the interpolar portion of the right kidney that could represent a calculus. Chest X-Ray 03/24/20 00:00 IMPRESSION: NG tube in good position in the upper stomach. Chest X-Ray 03/24/20 00:00 IMPRESSION: Enteric tube terminates subdiaphragmatically within the left upper quadrant. Otherwise stable exam. Head CT 03/24/20 00:18 IMPRESSION: No acute intracranial abnormality. Background chronic left frontoparietal epidural hemorrhage in the setting mild age-related involutional and chronic microvascular ischemic change. EVIDENCE OF ACUTE STROKE: NO. Chest X-Ray 03/24/20 00:20 IMPRESSION: No discrete radiographic evidence of acute cardiopulmonary abnormality. Plan Time Spent: Greater than 30 Minutes Stroke Is this a Stroke Patient?: No Acute Heart Failure Is this a Heart Failure Patient?: No
[2020-03-30] MEDS ORDERED: ERGOCALCIFEROL (VITAMIN D2) 50000 UNIT (1.25 MG) CAPSULE PO SCH (10:00)
== END 2020-03-27 12:15 | disposition home health service (06) | DRG 442 ==
LOC: ER 22:53 → INTOOBSV 03-24 05:28 → EH 03-24 05:28 → 4W 03-24 06:05 → OBSVTOIN 03-26 15:02
PROVIDERS: ADMIT Family Medicine; ATTEND Family Medicine
DX: K72.90 Hepatic failure, unspecified without coma (principal); B18.1 Chronic viral hepatitis B without delta-agent; E72.20 Disorder of urea cycle metabolism, unspecified; K74.69 Other cirrhosis of liver; E86.0 Dehydration; G20 Parkinson's disease; I10 Essential (primary) hypertension; E78.5 Hyperlipidemia, unspecified; F02.80 Dementia in other diseases classified elsewhere, unspecified severity, without behavioral disturbance, psychotic disturbance, mood disturbance, and anxiety; K21.9 Gastro-esophageal reflux disease without esophagitis; M19.90 Unspecified osteoarthritis, unspecified site; F32.9 Major depressive disorder, single episode, unspecified; G43.909 Migraine, unspecified, not intractable, without status migrainosus; Z20.828 Contact with and (suspected) exposure to other viral communicable diseases; Z79.890 Hormone replacement therapy; Z91.030 Bee allergy status; Z88.6 Allergy status to analgesic agent
CPT/HCPCS: 36415; 70450; 71045; 76705; 80048; 80053; 80076; 80307; 81001; 82105; 82140; 82962; 83735; 84484; 85025; 85610; 85730; 87040; 87086; 87517; 87635; 93005; 93010; 99285; A9270-GY; C9803; G0378; J3490; J7030